=== PATIENT | female | born 1940 | race African-American/Black ===

== ENCOUNTER 2017-03-09 17:36 | Inpatient (IN) | payer MEDICARE, OTHER ==
[2017-03-09] MEDS ORDERED: NORMAL SALINE 1000 ML 1,000 ML IV ONE (18:27)
[2017-03-09] MEDS ORDERED: ACETAMINOPHEN 325 MG TABLET PO ONE (18:28)
[2017-03-09 18:48] LABS: ABSOLUTE BASOPHILS # (AUTO) 0.1 10^3/uL (0.0-0.2); ABSOLUTE LYMPHOCYTES (AUTO) 0.5 10^3/uL (0.5-4.7); ABSOLUTE MONOCYTES (AUTO) 0.7 10^3/uL (0.1-1.4); ABSOLUTE NEUT (AUTO) 8.4 10^3/uL (1.7-8.2); BASOPHILS % (AUTO) 0.9 % (0-2); EOSINOPHILS % (AUTO) 0.1 % (0-6); HEMATOCRIT 38.2 % (36.0-47.0); HEMOGLOBIN 12.5 g/dL (12.0-15.5); HGB HCT DIFFERENCE -0.7; LYMPHOCYTES % (AUTO) 5.5 % (13-45); MEAN CORPUSCULAR HEMOGLOBIN 27.5 pg (27.0-33.4); MEAN CORPUSCULAR HGB CONC 32.6 g/dL (32.0-36.0); MEAN CORPUSCULAR VOLUME 84 fl (80-97); MONOCYTES % (AUTO) 7.1 % (3-13); RED BLOOD COUNT 4.54 10^6/uL (3.72-5.28); RED CELL DISTRIBUTION WIDTH 14.3 % (11.5-14.0); SEGMENTED NEUTROPHILS % (AUTO) 86.4 % (42-78); WHITE BLOOD COUNT 9.8 10^3/uL (4.0-10.5)
--- NOTE | 2017-03-09 18:57 | ER Document Report ---
ED General - General Chief Complaint: Fall Stated Complaint: FALL HIGH BLOOD PRESSURE Notes: Patient is a 76-year-old female with a past medical history of hypertension, hyperlipidemia, recurrent falls, who presents after being found on the ground after laying there for approximately 12 hours. Patient states she fell at approximately 4 this morning onto her right scapula and mid back and had been unable to get the floor since that time. Her daughter found her at approximately 5 PM and contact EMS who brought her here to the hospital. At time prior to presentation patient only complains of a mild, dull, constant, burning pain to her right flank which she states she always has and is not new or different since the fall. Nothing seems to improve or worsen her pain. Patient states that she is certain she did not hit her head or neck. Patient does state that she has not taken any of her blood pressure medicines today. She also states that she does feel quite dehydrated and has not been able to drink or eat anything all day. Her daughter at bedside states this is very similar to her prior falls. TRAVEL OUTSIDE OF THE [place] IN LAST 30 DAYS: No - Related Data Allergies/Adverse Reactions: Penicillins Allergy (Verified 03/09/17 18:30) Past Medical History - General Information source: Patient - Social History Smoking Status: Never Smoker Frequency of alcohol use: None Drug Abuse: None Lives with: Family Family History: Reviewed & Not Pertinent Patient has suicidal ideation: No Patient has homicidal ideation: No - Past Medical History Cardiac Medical History: Reports: Hx Hypercholesterolemia, Hx Hypertension Endocrine Medical History: Reports: Hx Diabetes Mellitus Type 2 Renal/ Medical History: Denies: Hx Peritoneal Dialysis Past Surgical History: Reports: Hx Bowel Surgery - colon re-section, Hx Cardiac Catheterization - Immunizations Hx Diphtheria, Pertussis, Tetanus Vaccination: Yes Review of Systems - Review of Systems Notes: Constitutional: Negative for fever. Eyes: Negative for visual changes. ENT: Negative for facial injury Cardiovascular: Negative for chest injury. Respiratory: Negative for shortness of breath. Gastrointestinal: Negative for abdominal injury. Genitourinary: Negative for genital injury Musculoskeletal: Positive for back injury. Skin: Negative for laceration/abrasions. Neurological: Negative for head injury. Physical Exam - Vital signs Vitals: Resp Pulse Ox 19 99 03/09/17 17:57 03/09/17 17:57 Interpretation: Hypertensive Notes: PHYSICAL EXAMINATION: GENERAL: Frail, elderly, no acute distress HEAD: Atraumatic, normocephalic. EYES: Pupils equal round and reactive to light, extraocular movements intact, sclera anicteric, conjunctiva are normal. ENT: nares patent, no oral pharyngeal trauma. No hemotympanum, no Aguilar's sign , no raccoon eyes. NECK: No midline cervical spine tenderness. Patient able to move their head to 45 bilaterally without any discomfort. LUNGS: Breath sounds clear to auscultation bilaterally and equal. No wheezes rales or rhonchi. HEART: Regular tachycardia without murmurs. CHEST WALL: No ecchymosis over the chest wall. ABDOMEN: Soft, nontender, normoactive bowel sounds. No guarding, no rebound. No abdominal bruising EXTREMITIES: Normal range of motion, no pitting or edema. No long bone deformities. BACK: No midline spinal tenderness, step-offs, or deformities. NEUROLOGICAL: Face symmetric. Tongue protrudes midline. Extraocular motions intact. Pupils are 2 mm and equally reactive. Normal speech, normal gait. 5 out of 5 strength in both the distal and proximal upper and lower extremities bilaterally. Sensation is grossly intact throughout. Finger to nose testing normal. Pronator drift normal. PSYCH: Normal mood, normal affect. SKIN: Warm, Dry, poor turgor, no rashes or lesions noted. Course - Re-evaluation Re-evalutation: 03/09/17 18:55 Patient presents after having a mechanical fall without hitting her head or neck. Patient apparently has frequent falls. She denies any focal pain with the exception of mild discomfort to her left flank which she describes a stinging pain that she always has. Patient does appear clinically quite dehydrated, even attempt to sit up in the bed because her heart rate to jump from 105-135. She does appear to be orthostatic symptomatically as well. Patient has been lying on the ground for over 12 hours I am also concerned about the possibility of rhabdomyolysis. Will obtain labs to provide IV fluids , obtain a urinalysis, and reassess 03/10/17 04:33 Patient's urinalysis does show findings consistent with acute pyelonephritis. She remains with some tachycardia likely secondary to the urinary tract infection as well as dehydration. CK is unremarkable. Patient is also noted on examination to have a very firm right breast mass consistent with advanced breast cancer. Given history of recent weight loss and progressively worsening diffuse back pain patient may very well have metastatic breast cancer. She will be admitted to the hospitalist service. - Vital Signs Vital signs: Temp Pulse Resp BP Pulse Ox 98.1 F 106 H 18 151/80 H 95 03/10/17 04:20 03/10/17 04:20 03/10/17 04:20 03/10/17 04:20 03/10/17 04:20 - Laboratory Result Diagrams: 03/09/17 18:38 03/09/17 20:02 Laboratory results interpreted by me: 03/09/17 03/09/17 03/09/17 17:58 18:38 18:38 RDW 14.3 H Seg Neutrophils % 86.4 H Lymphocytes % 5.5 L Absolute Neutrophils 8.4 H Sodium Carbon Dioxide Anion Gap BUN Glucose Hemoglobin A1c % 7.6 H Calcium Direct Bilirubin AST ALT Alkaline Phosphatase Creatine Kinase Urine Protein 100 H Urine Glucose (UA) >=500 H Urine Ketones 80 H Urine Blood MODERATE H Urine Nitrite POSITIVE H Ur Leukocyte Esterase LARGE H 03/09/17 20:02 RDW Seg Neutrophils % Lymphocytes % Absolute Neutrophils Sodium 145.6 H Carbon Dioxide 19 L Anion Gap 23 H BUN 24 H Glucose 289 H Hemoglobin A1c % Calcium 13.5 H* Direct Bilirubin 0.6 H AST 71 H ALT 65 H Alkaline Phosphatase 233 H Creatine Kinase 188 H Urine Protein Urine Glucose (UA) Urine Ketones Urine Blood Urine Nitrite Ur Leukocyte Esterase Discharge - Discharge Clinical Impression: Dehydration, Hypercalcemia, Essential hypertension Urinary tract infection Qualifiers: Urinary tract infection type: site unspecified Hematuria presence: without hematuria Qualified Code(s): N39.0 - Urinary tract infection, site not specified Condition: Fair Disposition: ADMITTED INPATIENT Admitting Provider: Hospitalist - [place] [facility] Admitted: [facility]
[2017-03-09 19:57] LABS: APPEARANCE,URINE CLOUDY; BILIRUBIN,URINE NEGATIVE (NEGATIVE); GLUCOSE, URINE >=500 mg/dL (NEGATIVE); KETONES,URINE 80 mg/dL (NEGATIVE); LEUKOCYTE ESTERASE,URINE LARGE (NEGATIVE); NITRITE,URINE POSITIVE (NEGATIVE); PROTEIN,URINE 100 mg/dL (NEGATIVE); URINE SPECIFIC GRAVITY 1.014; UROBILINOGEN,URINE NEGATIVE mg/dL (<2.0)
[2017-03-09] MEDS ORDERED: CEFTRIAXONE 1 GM/D5W RTU 1 GM/50 ML RTUPB IV ONE (20:01)
[2017-03-09 20:42] LABS: ALANINE AMINOTRANSFERASE 65 U/L (9-52); ALKALINE PHOSPHATASE 233 U/L (38-126); ASPARTATE AMINO TRANSFERASE 71 U/L (14-36); BILIRUBIN,DIRECT 0.6 mg/dL (0.0-0.4); BILIRUBIN,TOTAL 0.9 mg/dL (0.2-1.3); BLOOD UREA NITROGEN 24 mg/dL (7-20); CREATINE KINASE 188 U/L (30-135); CREATININE RESULT 0.86 mg/dL (0.52-1.25); GLUCOSE 289 mg/dL (75-110)
[2017-03-09 20:54] LABS: CARBON DIOXIDE 19 mmol/L (22-30); CHLORIDE 104 mmol/L (98-107); SODIUM 145.6 mmol/L (137-145)
[2017-03-09 20:56] LABS: ANION GAP 23 (5-19)
[2017-03-09 20:58] LABS: CALCIUM 13.5 mg/dL (8.4-10.2)
[2017-03-09] MEDS ORDERED: OXYCODONE-ACETAMINOPHEN 5-325 MG TABLET PO PRN (21:51)
[2017-03-09] MEDS ORDERED: ONDANSETRON HCL INJ/PF 4 MG/2 ML SDV IV PRN (21:51)
[2017-03-09] MEDS ORDERED: MAG HYDROX/AL HYDROX/SIMETH SUSP 30 ML UDCUP PO PRN (21:51)
[2017-03-09] MEDS ORDERED: ACETAMINOPHEN 325 MG TABLET PO PRN (21:51)
[2017-03-09] MEDS: LISINOPRIL 10 MG TABLET PO SCH (22:35)
[2017-03-09] MEDS ORDERED: FUROSEMIDE INJ/PF 20 MG/2 ML SDV IV ONE (23:00)
[2017-03-09] MEDS ORDERED: NORMAL SALINE 1000 ML 3,000 ML IV ONE (23:00)
[2017-03-09] MEDS ORDERED: DEXTROSE 50%-WATER 25 GM/50 ML DISP.SYRIN IV PRN ×2 (23:29)
[2017-03-09] MEDS ORDERED: GLUCAGON,HUMAN RECOMB 1 MG INJ IM PRN (23:29)
[2017-03-09] MEDS ORDERED: DEXTROSE 40% GEL 15 GM TUBE PO PRN ×2 (23:29)
--- NOTE | 2017-03-09 23:45 | PDOC H&P ---
History of Present Illness Admission Date/PCP: 03/09/17 Dr. Knight History of Present Illness: JOSH VALERA is a 76 year old female with a past medical history of hypertension, hyperlipidemia, colon cancer, PE, who presents after being found on the ground after laying there for approximately 12 hours. Patient states she fell at approximately 4 this morning onto her right scapula and mid back and had been unable to get the floor since that time. Her daughter found her at approximately 5 PM and contact EMS who brought her here to the hospital. At time prior to presentation patient only complains of a mild, dull, constant, burning pain to her right flank for the past three days. Nothing seems to improve or worsen her pain. Patient states that she is certain she did not hit her head or neck. Denies loss of consciousness. Patient does state that she has not taken any of her blood pressure medicines today. She also states that she does feel quite dehydrated and has not been able to drink or eat anything all day. Patient reports intermittent left leg weakness and states her leg just went out from under her when she fell. Family noticed "bruising" of her left breast. She is referred to the hospitalist for uti, hypertensive urgency. Past Medical History Cardiac Medical History: Reports: Hyperlipidema, Hypertension, Pulmonary Embolism Endocrine Medical History: Reports: Diabetes Mellitus Type 2 Malignancy Medical History: Reports: Colorectal Cancer Past Surgical History Past Surgical History: Reports: Other - Port insertion and removal partial colectomy Social History Lives with: Family Smoking Status: Never Smoker Frequency of Alcohol Use: None Hx Recreational Drug Use: No Hx Prescription Drug Abuse: No - Advance Directive Resuscitation Status: Full Code Surrogate healthcare decision maker:: Daughter, Sonja Valera Family History Family History: CAD Parental Family History Reviewed: Yes Children Family History Reviewed: Yes Sibling(s) Family History Reviewed.: Yes Medication/Allergy Home Medications: Docusate Sodium [Colace 100 mg Capsule] 200 mg PO DAILY 02/26/12 Gemfibrozil [Lopid 600 Mg Tablet] 600 mg PO BID 02/26/12 Glipizide [Glocotrol 10 Mg Tablet] 10 mg PO BID 02/26/12 Lisinopril [Prinivil 40 mg Tablet] 40 mg PO DAILY 02/26/12 Metformin HCl [Glumetza] 1,000 mg PO BID 02/26/12 Metoprolol Tartrate [Lopressor 50 mg Tablet] 50 mg PO Q12H 02/26/12 Warfarin Sodium 5 mg PO DAILY 02/26/12 Ciprofloxacin HCl [Cipro 500 mg Tablet] 500 mg PO BID #10 tablet 06/06/14 Allergies/Adverse Reactions: Penicillins Allergy (Verified 03/09/17 18:30) Review of Systems Constitutional: PRESENT: weakness. ABSENT: chills, fever(s), headache(s), weight gain, weight loss Eyes: ABSENT: visual disturbances Ears: ABSENT: hearing changes Cardiovascular: ABSENT: chest pain, dyspnea on exertion, edema, orthropnea, palpitations Respiratory: ABSENT: cough, hemoptysis Gastrointestinal: PRESENT: constipation. ABSENT: abdominal pain, diarrhea, hematemesis, hematochezia, melena, nausea, vomiting Genitourinary: ABSENT: dysuria, hematuria Musculoskeletal: PRESENT: back pain. ABSENT: joint swelling Integumentary: PRESENT: rash - Right breast. ABSENT: wounds Neurological: PRESENT: frequent falls, weakness. ABSENT: abnormal gait, abnormal speech, confusion, dizziness, focal weakness, syncope Psychiatric: ABSENT: anxiety, depression, homidical ideation, suicidal ideation Endocrine: ABSENT: cold intolerance, heat intolerance, polydipsia, polyuria Hematologic/Lymphatic: ABSENT: easy bleeding, easy bruising Physical Exam Vital Signs: Temp Pulse Resp BP Pulse Ox 97.3 F 104 H 22 H 204/95 H 93 03/09/17 18:21 03/09/17 18:21 03/09/17 21:00 03/09/17 18:21 03/09/17 21:00 Intake & Output 03/08/17 03/09/17 03/10/17 06:59 06:59 06:59 Weight 75.296 kg General appearance: PRESENT: well-developed, other - Chronically ill-appearing. ABSENT: well-nourished Head exam: PRESENT: atraumatic, normocephalic Eye exam: PRESENT: conjunctival injection - Right eye with matting, conjunctiva pink, EOMI, PERRLA. ABSENT: scleral icterus Ear exam: PRESENT: normal external ear exam Mouth exam: PRESENT: dry mucosa, tongue midline Neck exam: PRESENT: lymphadenopathy - Shotty anterior cervical. ABSENT: JVD, thyromegaly, tracheal deviation Respiratory exam: PRESENT: clear to auscultation zane, symmetrical, unlabored. ABSENT: accessory muscle use, prolonged expiratory phas, rales, retraction, rhonchi, tachypnea, wheezes Cardiovascular exam: PRESENT: RRR, +S1, +S2. ABSENT: diastolic murmur, rubs, systolic murmur Pulses: PRESENT: normal dorsalis pedis pul Vascular exam: PRESENT: normal capillary refill GI/Abdominal exam: PRESENT: hypoactive bowel sounds, soft. ABSENT: distended, guarding, mass, Madrigal's sign, organolmegaly, rebound, rigid, tenderness Rectal exam: PRESENT: deferred Extremities exam: PRESENT: full ROM. ABSENT: calf tenderness, clubbing, pedal edema Neurological exam: PRESENT: alert, awake, oriented to person, oriented to place , oriented to time, oriented to situation, CN II-XII grossly intact. ABSENT: motor sensory deficit Psychiatric exam: PRESENT: appropriate affect, normal mood. ABSENT: homicidal ideation, suicidal ideation Skin exam: PRESENT: dry, warm. ABSENT: cyanosis, intact - Area of erythema with 2 small circumferential areas of comedone, right breast hardness and peau d orange appearance of skin, rash Results Laboratory Results: 03/09/17 18:38 03/09/17 20:02 03/09/17 03/09/17 03/09/17 17:58 18:38 18:38 WBC 9.8 RBC 4.54 Hgb 12.5 Hct 38.2 MCV 84 MCH 27.5 MCHC 32.6 RDW 14.3 H Plt Count 371 Seg Neutrophils % 86.4 H Lymphocytes % 5.5 L Monocytes % 7.1 Eosinophils % 0.1 Basophils % 0.9 Absolute Neutrophils 8.4 H Absolute Lymphocytes 0.5 Absolute Monocytes 0.7 Absolute Eosinophils 0.0 Absolute Basophils 0.1 Sodium Cancelled Potassium Cancelled Chloride Cancelled Carbon Dioxide Cancelled Anion Gap Cancelled BUN Cancelled Creatinine Cancelled Est GFR ( Amer) Cancelled Est GFR (Non-Af Amer) Cancelled Glucose Cancelled Calcium Cancelled Total Bilirubin Cancelled AST Cancelled ALT Cancelled Alkaline Phosphatase Cancelled Total Protein Cancelled Albumin Cancelled Urine Color YELLOW Urine Appearance CLOUDY Urine pH 6.0 Ur Specific [place] 1.014 Urine Protein 100 H Urine Glucose (UA) >=500 H Urine Ketones 80 H Urine Blood MODERATE H Urine Nitrite POSITIVE H Ur Leukocyte Esterase LARGE H Urine WBC (Auto) 94 Urine RBC (Auto) 33 03/09/17 20:02 WBC RBC Hgb Hct MCV MCH MCHC RDW Plt Count Seg Neutrophils % Lymphocytes % Monocytes % Eosinophils % Basophils % Absolute Neutrophils Absolute Lymphocytes Absolute Monocytes Absolute Eosinophils Absolute Basophils Sodium 145.6 H Potassium 4.0 Chloride 104 Carbon Dioxide 19 L Anion Gap 23 H BUN 24 H Creatinine 0.86 Est GFR ( Amer) > 60 Est GFR (Non-Af Amer) > 60 Glucose 289 H Calcium 13.5 H* Total Bilirubin 0.9 AST 71 H ALT 65 H Alkaline Phosphatase 233 H Total Protein 7.0 Albumin 4.0 Urine Color Urine Appearance Urine pH Ur Specific [place] Urine Protein Urine Glucose (UA) Urine Ketones Urine Blood Urine Nitrite Ur Leukocyte Esterase Urine WBC (Auto) Urine RBC (Auto) 03/09/17 03/09/17 18:38 20:02 Creatine Kinase Cancelled 188 H Status: Imported from PACS Assessment & Plan - Diagnosis (1) Urinary tract infection Qualifiers: Urinary tract infection type: site unspecified Hematuria presence: without hematuria Qualified Code(s): N39.0 - Urinary tract infection, site not specified Is this a current diagnosis for this admission?: Yes Plan: Initiate patient on Rocephin. Likely the cause of her fall/weakness. Urine culture and blood cultures pending. (2) Hypercalcemia Is this a current diagnosis for this admission?: Yes Plan: Concern that this is due to underlying metastatic malignant process. Obtain PTH , intact PTH, vitamin D studies. Give patient 3 L normal saline bolus and Lasix. (3) Metabolic acidosis Is this a current diagnosis for this admission?: Yes Plan: Likely secondary to underlying starvation ketosis and dehydration. Will repeat BMP (4) Diabetes mellitus type 2 in nonobese Is this a current diagnosis for this admission?: Yes Plan: Initiate patient on sliding scale insulin and consider liberalizing diet (5) Elevated LFTs Is this a current diagnosis for this admission?: Yes Plan: Possibly secondary to underlying dehydration, but concerns for malignant process. (6) Dehydration Is this a current diagnosis for this admission?: Yes Plan: Place patient on normal saline (7) Essential hypertension Is this a current diagnosis for this admission?: Yes Plan: This patient on lisinopril and metoprolol. (8) Generalized debility Is this a current diagnosis for this admission?: Yes Plan: At this time, I feel the patient is definitely not safe for home alone. Will place a physical therapy consult and have recommended to patient and family rehabilitation. 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 Patient's breast is firm, with peau d'orange appearance. Have consulted her hematology oncologist. Will consider inpatient versus outpatient workup. - Time Time Spent: 50 to 70 Minutes Medications reviewed and adjusted accordingly: Yes Anticipated discharge: Acute Rehab - Inpatient Certification Based on my medical assessment, after consideration of the patient's comorbidities, presenting symptoms, or acuity I expect that the services needed warrant INPATIENT care.: Yes I certify that my determination is in accordance with my understanding of Medicare's requirements for reasonable and necessary INPATIENT services [42 CFR 412.3e].: Yes Medical Necessity: Need For IV Fluids, Need For Continuous Telemetry Monitoring , Need for Surgery Post Hospital Care: D/C Crm System Administrator Documentation
[2017-03-10] MEDS: NORMAL SALINE 1000 ML 1,000 ML IV PRN ×4 (00:30→21:23)
[2017-03-10] MEDS: INSULIN LISPRO 100 UNIT/ML 3 ML VIAL SUBCUT PRN (01:42)
[2017-03-10 05:14] LABS: ABSOLUTE LYMPHOCYTES (AUTO) 0.8 10^3/uL (0.5-4.7); ABSOLUTE MONOCYTES (AUTO) 0.7 10^3/uL (0.1-1.4); ABSOLUTE NEUT (AUTO) 6.5 10^3/uL (1.7-8.2); BASOPHILS % (AUTO) 0.3 % (0-2); EOSINOPHILS % (AUTO) 0.1 % (0-6); HEMATOCRIT 33.6 % (36.0-47.0); HEMOGLOBIN 11.2 g/dL (12.0-15.5); LYMPHOCYTES % (AUTO) 9.6 % (13-45); MEAN CORPUSCULAR HEMOGLOBIN 27.4 pg (27.0-33.4); MEAN CORPUSCULAR HGB CONC 33.3 g/dL (32.0-36.0); MEAN CORPUSCULAR VOLUME 82 fl (80-97); MONOCYTES % (AUTO) 8.3 % (3-13); RED BLOOD COUNT 4.09 10^6/uL (3.72-5.28); RED CELL DISTRIBUTION WIDTH 14.1 % (11.5-14.0); SEGMENTED NEUTROPHILS % (AUTO) 81.7 % (42-78)
[2017-03-10 05:38] LABS: ANION GAP 15 (5-19); BLOOD UREA NITROGEN 21 mg/dL (7-20); CARBON DIOXIDE 21 mmol/L (22-30); CHLORIDE 107 mmol/L (98-107); CREATININE RESULT 0.75 mg/dL (0.52-1.25); GLUCOSE 239 mg/dL (75-110); POTASSIUM 3.3 mmol/L (3.6-5.0); SODIUM 143.3 mmol/L (137-145)
[2017-03-10 05:52] LABS: CALCIUM 12.7 mg/dL (8.4-10.2)
[2017-03-10] MEDS: OXYCODONE-ACETAMINOPHEN 5-325 MG TABLET PO PRN ×3 (08:40→19:19)
[2017-03-10] MEDS: CEFTRIAXONE 1 GM/D5W RTU 1 GM/50 ML RTUPB IV SCH (11:00)
[2017-03-10] MEDS: POLYETHYLENE GLYCOL 3350 POWDER 17 GM/1 PACKET PO SCH (11:02)
[2017-03-10] MEDS: LISINOPRIL 10 MG TABLET PO SCH ×2 (11:03→21:07)
[2017-03-10] MEDS: DOCUSATE SODIUM 100 MG CAPSULE PO SCH ×2 (11:03→19:18)
[2017-03-10] MEDS: METOPROLOL SUCCINATE 25 MG TAB.SR.24H PO SCH ×2 (11:03→21:06)
[2017-03-10] MEDS: ERYTHROMYCIN 0.5% OPH OINTMENT 3.5 GM TUBE OD SCH ×2 (11:04→19:22)
[2017-03-10] MEDS: NYSTATIN CREAM 15 GM TP SCH ×2 (11:05→19:21)
[2017-03-10] MEDS ORDERED: POTASSIUM CHLORIDE 10 MEQ TABLET.SA PO ONE ×2 (13:00→23:45)
--- NOTE | 2017-03-10 14:20 | PDOC PROGRESS REPORT ---
Subjective Progress Note for:: 03/10/17 Subjective:: Day 1 of hospitalization. Follow-up visit for patient admitted with failure to thrive and falls Patient is a 76-year-old female past medical history of hypertension dyslipidemia, colon cancer, PE, who was brought to the hospital after being found on the ground after laying there for about 12 hours. Patient stated that she fell in the morning onto her right shoulder and back and was unable to get up until evening when she was found by daughter who then contacted EMS. She did complain of mild dull constant burning pain to her right flank. She was noted to be very unkempt and dirty, was found to have a urinary tract infection as well as hypercalcemia. Her right breast had a 'peau d'orange' appearance. She received IV fluid boluses and has been started on IV antibiotics. Oncology was consulted on admission Overnight events noted. She does admit to feeling generally weak, and did not finish her breakfast this morning. She still complains of right upper chest wall pain. She denies any shortness of breath, nausea vomiting diarrhea, any focal neurologic deficit. She has been afebrile Physical Exam Vital Signs: Temp Pulse Resp BP Pulse Ox 98.1 F 103 H 18 151/80 H 95 03/10/17 04:20 03/10/17 07:00 03/10/17 04:20 03/10/17 04:20 03/10/17 04:20 General appearance: PRESENT: no acute distress, cooperative, disheveled, hard of hearing Head exam: PRESENT: atraumatic, normocephalic Eye exam: PRESENT: conjunctiva pink, EOMI Teeth exam: PRESENT: edentulous Respiratory exam: PRESENT: clear to auscultation zane, symmetrical, unlabored Cardiovascular exam: PRESENT: RRR, +S1, +S2 GI/Abdominal exam: PRESENT: normal bowel sounds, soft. ABSENT: ascites, diminished bowel sounds, distended, firm, guarding, hernia, hyperactive bowel sounds, hypoactive bowel sounds, mass, Madrigal's sign, organolmegaly, rebound, rigid, tenderness, other Extremities exam: PRESENT: other - Has bilateral ingrowing toenails Neurological exam: PRESENT: awake, oriented to person, oriented to place, oriented to time, oriented to situation, reflexes normal Psychiatric exam: PRESENT: depressed Skin exam: PRESENT: other - Right breast with peau d'orange appearance Results Laboratory Results: 03/10/17 04:19 03/10/17 04:19 03/10/17 03/10/17 04:19 04:19 WBC 8.0 RBC 4.09 Hgb 11.2 L Hct 33.6 L MCV 82 MCH 27.4 MCHC 33.3 RDW 14.1 H Plt Count 316 Seg Neutrophils % 81.7 H Lymphocytes % 9.6 L Monocytes % 8.3 Eosinophils % 0.1 Basophils % 0.3 Absolute Neutrophils 6.5 Absolute Lymphocytes 0.8 Absolute Monocytes 0.7 Absolute Eosinophils 0.0 Absolute Basophils 0.0 Sodium 143.3 Potassium 3.3 L Chloride 107 Carbon Dioxide 21 L Anion Gap 15 BUN 21 H Creatinine 0.75 Est GFR ( Amer) > 60 Est GFR (Non-Af Amer) > 60 Glucose 239 H Calcium 12.7 H* Assessment & Plan - Diagnosis (1) Adult failure to thrive syndrome Plan: Patient lives alone at home, with her daughter that checks on her frequently. She was found lying on the floor for more than 12 hours after a fall at home. Podiatry consulted for ingrown toenails. Patient will probably need SNF placement. PT/OT/criminal justice social worker consulted (2) Urinary tract infection Qualifiers: Urinary tract infection type: acute cystitis Hematuria presence: without hematuria Qualified Code(s): N30.00 - Acute cystitis without hematuria Is this a current diagnosis for this admission?: Yes Plan: Afebrile with no leukocytosis. Continue current antibiotics (3) Inflammatory breast cancer Qualifiers: Laterality: right Qualified Code(s): C50.911 - Malignant neoplasm of unspecified site of right female breast Is this a current diagnosis for this admission?: Yes Plan: We will await input from oncology. Continue current pain management (4) Hypercalcemia Is this a current diagnosis for this admission?: Yes Plan: Most likely related to malignancy given the peau d'orange appearance of the right breast. Calcium 12.7 (13.5). Continue IV fluids. Oncology to see (5) Dehydration Is this a current diagnosis for this admission?: Yes Plan: Continue IV fluids as ordered (6) Elevated LFTs Is this a current diagnosis for this admission?: Yes Plan: AST/ALT: 71/65, alkaline phosphatase 233. Will obtain RUQ US. Follow labs (7) Essential hypertension Is this a current diagnosis for this admission?: Yes Plan: Blood pressure stable. Continue current management (8) Hypokalemia Is this a current diagnosis for this admission?: Yes Plan: Potassium 3.3. replete and recheck (9) DVT prophylaxis Is this a current diagnosis for this admission?: Yes Plan: Patient is on rivaroxaban - Time Time Spent with patient: 35 or more minutes Medications reviewed and adjusted accordingly: Yes Anticipated discharge: SNF Within: within 48 hours - Inpatient Certification Medical Necessity: Risk of Complication if Not Cared For in Hospital - Patient will require SNF placement
[2017-03-10] MEDS ORDERED: INFLUENZA ADLT QUAD (36MOS+) 2017-18 VAC 0.5 ML SYR IM PRN (16:31)
[2017-03-10] MEDS: RIVAROXABAN 10 MG TABLET PO SCH (19:20)
--- NOTE | 2017-03-10 22:34 | RADIOLOGY REPORT (SQ) ---
EXAM DESCRIPTION: U/S ABDOMEN LIMITED W/O DOP COMPLETED DATE/TIME: 03/10/2017 10:03 pm REASON FOR STUDY: Abnromal LFTs COMPARISON: None. TECHNIQUE: Dynamic and static grayscale images acquired of the right upper quadrant and recorded on PACS. Additional selected color Doppler and spectral images recorded. LIMITATIONS: Study limited due to acoustical interference from fat or from air in the bowel. FINDINGS: PANCREAS: Parts or all of the pancreas poorly seen secondary to acoustical interference fr om fat or from air in the bowel. LIVER: Echotexture is coarse with increased echogenicity consistent with fatty infiltration. No mass es. LIVER VASCULATURE: Normal directional flow of the main portal vein and hepatic veins. GALLBLADDER: Sludge/small stones No stones. Normal wall thickness. No pericholecystic fluid. ULTRASOUND-DETECTED DUMONT'S SIGN: Negative. INTRAHEPATIC DUCTS AND COMMON DUCT: CBD and intrahepatic ducts normal caliber. No filling defects. INFERIOR VENA CAVA: Normal flow. AORTA: No aneurysm. RIGHT KIDNEY: Normal size. Normal echogenicity. No solid or suspicious masses. No hydronephrosis. No calcifications. PERITONEAL CAVITY AND RIGHT PLEURAL SPACE: No ascites or effusions. OTHER: No other significant finding. IMPRESSION: FATTY LIVER. CHOLELITHIASIS. PANCREAS PARTIALLY OR COMPLETELY OBSCURED. OTHERWISE NORM AL RIGHT UPPER QUADRANT ULTRASOUND. TECHNICAL DOCUMENTATION: JOB ID: [id number] [employer]- All Rights Reserved
[2017-03-10] MEDS ORDERED: METOPROLOL SUCCINATE 25 MG TAB.SR.24H PO SCH (23:03)
[2017-03-10] MEDS ORDERED: CALCITONIN,SALMON,SYNTHETIC 400 UNIT/2 ML VIAL IM PRN (23:45)
[2017-03-10] MEDS ORDERED: METOPROLOL SUCCINATE 50 MG TAB.SR.24H PO ONE (23:45)
[2017-03-10] MEDS ORDERED: LISINOPRIL 10 MG TABLET PO ONE (23:45)
[2017-03-11] MEDS ORDERED: CALCITONIN,SALMON,SYNTHETIC 400 UNIT/2 ML VIAL ONE (01:11)
[2017-03-11] MEDS: NORMAL SALINE 1000 ML 1,000 ML IV PRN ×2 (04:38→23:53)
[2017-03-11 05:11] LABS: ABSOLUTE LYMPHOCYTES (AUTO) 0.8 10^3/uL (0.5-4.7); ABSOLUTE MONOCYTES (AUTO) 0.8 10^3/uL (0.1-1.4); ABSOLUTE NEUT (AUTO) 6.3 10^3/uL (1.7-8.2); BASOPHILS % (AUTO) 0.5 % (0-2); EOSINOPHILS % (AUTO) 0.6 % (0-6); HEMATOCRIT 32.3 % (36.0-47.0); HEMOGLOBIN 10.7 g/dL (12.0-15.5); HGB HCT DIFFERENCE -0.2; LYMPHOCYTES % (AUTO) 9.9 % (13-45); MEAN CORPUSCULAR HEMOGLOBIN 27.2 pg (27.0-33.4); MEAN CORPUSCULAR HGB CONC 33.1 g/dL (32.0-36.0); MEAN CORPUSCULAR VOLUME 82 fl (80-97); MONOCYTES % (AUTO) 9.6 % (3-13); RED BLOOD COUNT 3.94 10^6/uL (3.72-5.28); SEGMENTED NEUTROPHILS % (AUTO) 79.4 % (42-78)
[2017-03-11 05:51] LABS: ALANINE AMINOTRANSFERASE 84 U/L (9-52); ALBUMIN 3.1 g/dL (3.5-5.0); ALKALINE PHOSPHATASE 206 U/L (38-126); ANION GAP 15 (5-19); ASPARTATE AMINO TRANSFERASE 103 U/L (14-36); BILIRUBIN,DIRECT 0.4 mg/dL (0.0-0.4); BILIRUBIN,TOTAL 0.6 mg/dL (0.2-1.3); BLOOD UREA NITROGEN 14 mg/dL (7-20); CALCIUM 11.3 mg/dL (8.4-10.2); CARBON DIOXIDE 18 mmol/L (22-30); CHLORIDE 111 mmol/L (98-107); CREATININE RESULT 0.69 mg/dL (0.52-1.25); GLUCOSE 259 mg/dL (75-110); POTASSIUM 3.5 mmol/L (3.6-5.0); SODIUM 144.1 mmol/L (137-145); TOTAL PROTEIN 5.6 g/dL (6.3-8.2)
[2017-03-11] MEDS ORDERED: POTASSIUM CHLORIDE 10 MEQ TABLET.SA PO ONE (06:59)
[2017-03-11] MEDS: OXYCODONE-ACETAMINOPHEN 5-325 MG TABLET PO PRN ×3 (08:24→17:47)
--- NOTE | 2017-03-11 09:56 | PDOC PROGRESS REPORT ---
Subjective Progress Note for:: 03/11/17 Subjective:: Day 1 of hospitalization. Follow-up visit for patient admitted with failure to thrive and falls Patient is a 76-year-old female past medical history of hypertension dyslipidemia, colon cancer, PE, who was brought to the hospital after being found on the ground after laying there for about 12 hours. Patient stated that she fell in the morning onto her right shoulder and back and was unable to get up until evening when she was found by daughter who then contacted EMS. She did complain of mild dull constant burning pain to her right flank. She was noted to be very unkempt and dirty, was found to have a urinary tract infection as well as hypercalcemia. Her right breast had a 'peau d'orange' appearance. She received IV fluid boluses and has been started on IV antibiotics. She has remained afebrile since admission. Oncology consult still pending Overnight events noted. She states she is feeling better but still admit to feeling generally weak. She still complains of right upper chest wall pain. She denies any shortness of breath, nausea vomiting diarrhea, any focal neurologic deficit. She has been afebrile. Daughter and son in law are present in the room Physical Exam Vital Signs: Temp Pulse Resp BP Pulse Ox 98.6 F 72 16 160/96 H 92 03/11/17 04:00 03/11/17 04:00 03/11/17 04:00 03/11/17 04:00 03/11/17 00:05 Intake & Output 03/10/17 03/11/17 03/12/17 06:59 06:59 06:59 Intake Total 4598 Balance 4598 Weight 76.5 kg General appearance: PRESENT: no acute distress, cooperative, disheveled, thin Head exam: PRESENT: atraumatic, normocephalic Throat exam: PRESENT: tonsillar erythema Respiratory exam: PRESENT: clear to auscultation zane, symmetrical, unlabored Cardiovascular exam: PRESENT: RRR, +S1, +S2 GI/Abdominal exam: PRESENT: normal bowel sounds, soft. ABSENT: ascites, diminished bowel sounds, distended, firm, guarding, hernia, hyperactive bowel sounds, hypoactive bowel sounds, mass, Madrigal's sign, organolmegaly, rebound, rigid, tenderness Neurological exam: PRESENT: awake, oriented to person, oriented to place, oriented to time, oriented to situation, reflexes normal, CN II-XII grossly intact Skin exam: PRESENT: other - Right breast with peau d'orange appearance Results Laboratory Results: 03/11/17 04:18 03/11/17 04:18 03/11/17 03/11/17 04:18 04:18 WBC 8.0 RBC 3.94 Hgb 10.7 L Hct 32.3 L MCV 82 MCH 27.2 MCHC 33.1 RDW 14.0 Plt Count 258 Seg Neutrophils % 79.4 H Lymphocytes % 9.9 L Monocytes % 9.6 Eosinophils % 0.6 Basophils % 0.5 Absolute Neutrophils 6.3 Absolute Lymphocytes 0.8 Absolute Monocytes 0.8 Absolute Eosinophils 0.0 Absolute Basophils 0.0 Sodium 144.1 Potassium 3.5 L Chloride 111 H Carbon Dioxide 18 L Anion Gap 15 BUN 14 Creatinine 0.69 Est GFR ( Amer) > 60 Est GFR (Non-Af Amer) > 60 Glucose 259 H Calcium 11.3 H Total Bilirubin 0.6 AST 103 H ALT 84 H Alkaline Phosphatase 206 H Total Protein 5.6 L Albumin 3.1 L 03/10/17 03/11/17 04:19 04:18 Creatine Kinase 121 CK-MB (CK-2) 0.90 Impressions: Abdomen Ultrasound 03/10/17 00:00 IMPRESSION: FATTY LIVER. CHOLELITHIASIS. PANCREAS PARTIALLY OR COMPLETELY OBSCURED. OTHERWISE NORMAL RIGHT UPPER QUADRANT ULTRASOUND. Status: Image reviewed by me Assessment & Plan - Diagnosis (1) Adult failure to thrive syndrome Plan: Patient lives alone at home, with her daughter that checks on her frequently. She was found lying on the floor for more than 12 hours after a fall at home. Podiatry consulted for ingrown toenails. Patient will probably need SNF placement (daughter states she might take patient to live with her in [place]). PT/ OT/director of social media marketing consulted (2) Urinary tract infection Qualifiers: Urinary tract infection type: acute cystitis Hematuria presence: without hematuria Qualified Code(s): N30.00 - Acute cystitis without hematuria Is this a current diagnosis for this admission?: Yes Plan: Acute cystitis due to GNRs. Afebrile with no leukocytosis. blood cultures NGTD. 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 We will await input from oncology. Continue current pain management (4) Hypercalcemia Is this a current diagnosis for this admission?: Yes Plan: Most likely related to malignancy given the peau d'orange appearance of the right breast. Improving, Calcium 11.3 (13.5). Continue IV fluids. Oncology to see (5) Elevated LFTs Is this a current diagnosis for this admission?: Yes Plan: AST/ALT 103/84 [71/65], alkaline phosphatase 206 [233]. Right upper quadrant ultrasound with evidence of fatty liver, Colelithiasis, pancreas was partially or completely obscured.. Follow labs (6) History of DVT (deep vein thrombosis) Is this a current diagnosis for this admission?: Yes Plan: History of DVT/PE s/p prior IVC filter placement. Continue home Rivaroxaban. (7) Dehydration Is this a current diagnosis for this admission?: Yes Plan: Continue IV fluids as ordered (8) Essential hypertension Is this a current diagnosis for this admission?: Yes Plan: Blood pressure stable. Continue current management: Lisinopril, Metoprolol (9) Hypokalemia Is this a current diagnosis for this admission?: Yes Plan: Potassium 3.3. replete and recheck (10) DVT prophylaxis Is this a current diagnosis for this admission?: Yes Plan: Patient is on rivaroxaban - Time Time Spent with patient: 35 or more minutes Medications reviewed and adjusted accordingly: Yes Anticipated discharge: SNF Within: within 72 hours - Inpatient Certification Medical Necessity: Risk of Complication if Not Cared For in Hospital, Risk of Diagnosis Which Will Require Inpatient Eval/Care/Monitoring
[2017-03-11] MEDS: NYSTATIN CREAM 15 GM TP SCH ×2 (10:27→17:51)
[2017-03-11] MEDS: ERYTHROMYCIN 0.5% OPH OINTMENT 3.5 GM TUBE OD SCH ×2 (10:28→17:51)
[2017-03-11] MEDS: CEFTRIAXONE 1 GM/D5W RTU 1 GM/50 ML RTUPB IV SCH (10:33)
[2017-03-11] MEDS: DOCUSATE SODIUM 100 MG CAPSULE PO SCH ×2 (10:33→17:46)
[2017-03-11] MEDS: LISINOPRIL 10 MG TABLET PO SCH ×2 (10:33→22:21)
[2017-03-11] MEDS: METOPROLOL SUCCINATE 50 MG TAB.SR.24H PO SCH ×2 (10:34→22:22)
[2017-03-11] MEDS: POLYETHYLENE GLYCOL 3350 POWDER 17 GM/1 PACKET PO SCH (10:35)
[2017-03-11 14:23] LABS: VITAMIN D 25-HYDROXY 48.9 ng/mL (30.0-100.0)
[2017-03-11] MEDS ORDERED: INSULIN GLARGINE,HUM.REC.ANLOG 1,000 UNIT/10 ML UNIT SUBCUT ONE (16:55)
[2017-03-11] MEDS: RIVAROXABAN 10 MG TABLET PO SCH (17:44)
[2017-03-11] MEDS: INSULIN LISPRO 100 UNIT/ML 3 ML VIAL SUBCUT PRN (22:24)
[2017-03-11] MEDS: HYDRALAZINE HCL INJ/PF 20 MG/1 ML SDV IV PRN (23:51)
[2017-03-12] MEDS ORDERED: CHLORTHALIDONE 25 MG TABLET PO ONE (04:30)
[2017-03-12 05:04] LABS: ABSOLUTE LYMPHOCYTES (AUTO) 0.8 10^3/uL (0.5-4.7); ABSOLUTE MONOCYTES (AUTO) 0.8 10^3/uL (0.1-1.4); ABSOLUTE NEUT (AUTO) 7.6 10^3/uL (1.7-8.2); BASOPHILS % (AUTO) 0.4 % (0-2); EOSINOPHILS % (AUTO) 0.3 % (0-6); HEMATOCRIT 30.8 % (36.0-47.0); HEMOGLOBIN 10.3 g/dL (12.0-15.5); HGB HCT DIFFERENCE 0.1; LYMPHOCYTES % (AUTO) 8.8 % (13-45); MEAN CORPUSCULAR HEMOGLOBIN 27.4 pg (27.0-33.4); MEAN CORPUSCULAR HGB CONC 33.5 g/dL (32.0-36.0); MEAN CORPUSCULAR VOLUME 82 fl (80-97); MONOCYTES % (AUTO) 8.3 % (3-13); RED BLOOD COUNT 3.77 10^6/uL (3.72-5.28); RED CELL DISTRIBUTION WIDTH 14.1 % (11.5-14.0); SEGMENTED NEUTROPHILS % (AUTO) 82.2 % (42-78); WHITE BLOOD COUNT 9.2 10^3/uL (4.0-10.5)
[2017-03-12 05:24] LABS: ANION GAP 15 (5-19); BLOOD UREA NITROGEN 11 mg/dL (7-20); CALCIUM 10.4 mg/dL (8.4-10.2); CARBON DIOXIDE 19 mmol/L (22-30); CHLORIDE 111 mmol/L (98-107); GLUCOSE 215 mg/dL (75-110); POTASSIUM 3.5 mmol/L (3.6-5.0); SODIUM 144.7 mmol/L (137-145)
[2017-03-12] MEDS: INSULIN LISPRO 100 UNIT/ML 3 ML VIAL SUBCUT PRN ×4 (07:40→21:56)
[2017-03-12] MEDS: DOCUSATE SODIUM 100 MG CAPSULE PO SCH ×2 (09:19→17:20)
[2017-03-12] MEDS: CEFTRIAXONE 1 GM/D5W RTU 1 GM/50 ML RTUPB IV SCH (09:19)
[2017-03-12] MEDS: METOPROLOL SUCCINATE 50 MG TAB.SR.24H PO SCH ×2 (09:19→21:49)
[2017-03-12] MEDS: LISINOPRIL 10 MG TABLET PO SCH (09:19)
[2017-03-12] MEDS: ERYTHROMYCIN 0.5% OPH OINTMENT 3.5 GM TUBE OD SCH ×2 (09:27→17:14)
[2017-03-12] MEDS: POLYETHYLENE GLYCOL 3350 POWDER 17 GM/1 PACKET PO SCH (09:32)
[2017-03-12] MEDS: CHLORTHALIDONE 25 MG TABLET PO SCH (09:36)
[2017-03-12] MEDS ORDERED: POTASSIUM CHLORIDE 10 MEQ TABLET.SA PO ONE (10:04)
[2017-03-12] MEDS ORDERED: LISINOPRIL 10 MG TABLET PO ONE (10:30)
--- NOTE | 2017-03-12 11:18 | PDOC PROGRESS REPORT ---
Subjective Progress Note for:: 03/12/17 Subjective:: Day 3 of hospitalization. Follow-up visit for patient admitted with failure to thrive and falls, and found to have an inflammatory right breast mass with hypercalcemia Patient is a 76-year-old female past medical history of hypertension dyslipidemia, colon cancer, PE, who was brought to the hospital after being found on the ground after laying there for about 12 hours. Patient stated that she fell in the morning onto her right shoulder and back and was unable to get up until evening when she was found by daughter who then contacted EMS. She did complain of mild dull constant burning pain to her right flank. She was noted to be very unkempt and dirty, was found to have a urinary tract infection as well as hypercalcemia. Her right breast had a 'peau d'orange' appearance. She received IV fluid boluses and has been started on IV antibiotics. She has remained afebrile since admission. Oncology consult still pending Overnight events noted. She was seen by the card writer hand yesterday and had a pedicure. She reports feeling better this morning. She denies any shortness of breath, nausea vomiting diarrhea, any focal neurologic deficit. She has been afebrile. Physical Exam Vital Signs: Temp Pulse Resp BP Pulse Ox 98.1 F 78 20 168/64 H 93 03/12/17 08:00 03/12/17 08:00 03/12/17 08:00 03/12/17 08:00 03/12/17 08:00 Intake & Output 03/11/17 03/12/17 03/13/17 06:59 06:59 06:59 Intake Total 4598 5068 Balance 4598 5068 Weight 76.5 kg 76.7 kg General appearance: PRESENT: no acute distress, cooperative, well-developed Head exam: PRESENT: atraumatic, normocephalic Respiratory exam: PRESENT: rhonchi, symmetrical, unlabored. ABSENT: accessory muscle use, chest wall tenderness, clear to auscultation zane, crackles, decreased breath sounds, prolonged expiratory phas, rales, retraction, stridor, tachypnea, wheezes, other Cardiovascular exam: PRESENT: RRR, +S1, +S2 GI/Abdominal exam: PRESENT: normal bowel sounds, soft. ABSENT: ascites, diminished bowel sounds, distended, firm, guarding, hernia, hyperactive bowel sounds, hypoactive bowel sounds, mass, Madrigal's sign, organolmegaly, rebound, rigid, tenderness, other Neurological exam: PRESENT: awake, oriented to person, oriented to place, oriented to time, oriented to situation, reflexes normal, CN II-XII grossly intact Psychiatric exam: PRESENT: normal mood Additional comments: Right breast with peau d'orange appearance: Indurated mildly tender Results Laboratory Results: 03/12/17 04:27 03/12/17 04:27 03/12/17 03/12/17 04:27 04:27 WBC 9.2 RBC 3.77 Hgb 10.3 L Hct 30.8 L MCV 82 MCH 27.4 MCHC 33.5 RDW 14.1 H Plt Count 259 Seg Neutrophils % 82.2 H Lymphocytes % 8.8 L Monocytes % 8.3 Eosinophils % 0.3 Basophils % 0.4 Absolute Neutrophils 7.6 Absolute Lymphocytes 0.8 Absolute Monocytes 0.8 Absolute Eosinophils 0.0 Absolute Basophils 0.0 Sodium 144.7 Potassium 3.5 L Chloride 111 H Carbon Dioxide 19 L Anion Gap 15 BUN 11 Creatinine 0.60 Est GFR ( Amer) > 60 Est GFR (Non-Af Amer) > 60 Glucose 215 H Calcium 10.4 H 03/10/17 03/11/17 04:19 04:18 Creatine Kinase 121 CK-MB (CK-2) 0.90 Impressions: Abdomen Ultrasound 03/10/17 00:00 IMPRESSION: FATTY LIVER. CHOLELITHIASIS. PANCREAS PARTIALLY OR COMPLETELY OBSCURED. OTHERWISE NORMAL RIGHT UPPER QUADRANT ULTRASOUND. Assessment & Plan - Diagnosis (1) Adult failure to thrive syndrome Is this a current diagnosis for this admission?: Yes Plan: Patient lives alone at home, with her daughter that checks on her frequently. She was found lying on the floor for more than 12 hours after a fall at home. Podiatry saw patient for ingrown toenails. Patient will probably need SNF placement vs daughter states she might take patient to live with her in [place]. PT/ OT/social science teacher consulted (2) Urinary tract infection Qualifiers: Urinary tract infection type: acute cystitis Hematuria presence: without hematuria Qualified Code(s): N30.00 - Acute cystitis without hematuria Is this a current diagnosis for this admission?: Yes Plan: Acute cystitis due to Escherichia coli and pseudomonas aeruginosa. Afebrile with no leukocytosis. Blood cultures NGTD. 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 We will await input from oncology. Continue current pain management. (4) Hypercalcemia Is this a current diagnosis for this admission?: Yes Plan: Most likely related to malignancy given the peau d'orange appearance of the right breast. Improving, Calcium 10.4 (13.5) with IV fluids. Oncology to see (5) Elevated LFTs Is this a current diagnosis for this admission?: Yes Plan: AST/ALT 103/84 [71/65], alkaline phosphatase 206 [233]. Right upper quadrant ultrasound with evidence of fatty liver, Colelithiasis, pancreas was partially or completely obscured. Follow labs (6) History of DVT (deep vein thrombosis) Is this a current diagnosis for this admission?: Yes Plan: History of DVT/PE s/p prior IVC filter placement. Continue home Rivaroxaban. (7) Dehydration Is this a current diagnosis for this admission?: Yes Plan: Continue IV fluids as ordered (8) Essential hypertension Is this a current diagnosis for this admission?: Yes Plan: Accelerated hypertension: Blood pressure not at goal. Continue current management: Lisinopril, Metoprolol. Added Chlorthalidone (9) Hypokalemia Is this a current diagnosis for this admission?: Yes Plan: Replete and recheck (10) DVT prophylaxis Is this a current diagnosis for this admission?: Yes Plan: Patient is on rivaroxaban - Time Time Spent with patient: 35 or more minutes Medications reviewed and adjusted accordingly: Yes Anticipated discharge: SNF Disposition: SNF versus home with daughter who plans to take patient to her home in [place] - Inpatient Certification Based on my medical assessment, after consideration of the patient's comorbidities, presenting symptoms, or acuity I expect that the services needed warrant INPATIENT care.: Yes I certify that my determination is in accordance with my understanding of Medicare's requirements for reasonable and necessary INPATIENT services [42 CFR 412.3e].: Yes Medical Necessity: Risk of Complication if Not Cared For in Hospital
[2017-03-12] MEDS: NYSTATIN CREAM 15 GM TP SCH ×2 (12:14→17:32)
[2017-03-12] MEDS: RIVAROXABAN 10 MG TABLET PO SCH (17:19)
[2017-03-12] MEDS: HYDRALAZINE HCL INJ/PF 20 MG/1 ML SDV IV PRN (17:21)
[2017-03-12] MEDS ORDERED: INSULIN GLARGINE,HUM.REC.ANLOG 300 UNIT/3 ML INSULN.PEN SUBCUT SCH (22:00)
[2017-03-13] MEDS: HYDRALAZINE HCL INJ/PF 20 MG/1 ML SDV IV PRN ×2 (02:47→17:01)
[2017-03-13] MEDS: INSULIN LISPRO 100 UNIT/ML 3 ML VIAL SUBCUT PRN ×4 (08:11→21:44)
[2017-03-13] MEDS: DOCUSATE SODIUM 100 MG CAPSULE PO SCH ×2 (09:31→17:09)
[2017-03-13] MEDS: LISINOPRIL 10 MG TABLET PO SCH (09:32)
[2017-03-13] MEDS: CHLORTHALIDONE 25 MG TABLET PO SCH (09:33)
[2017-03-13] MEDS: METOPROLOL SUCCINATE 50 MG TAB.SR.24H PO SCH ×2 (09:33→21:44)
[2017-03-13] MEDS: POLYETHYLENE GLYCOL 3350 POWDER 17 GM/1 PACKET PO SCH (09:35)
[2017-03-13] MEDS: NYSTATIN CREAM 15 GM TP SCH ×2 (09:35→17:13)
[2017-03-13] MEDS: ERYTHROMYCIN 0.5% OPH OINTMENT 3.5 GM TUBE OD SCH ×2 (09:35→17:13)
[2017-03-13] MEDS ORDERED: CEFTRIAXONE 1 GM/D5W RTU 1 GM/50 ML RTUPB IV ONE (10:00)
--- NOTE | 2017-03-13 10:50 | PDOC PROGRESS REPORT ---
Subjective Progress Note for:: 03/13/17 Subjective:: Day 4 of hospitalization. Follow-up visit for patient admitted with failure to thrive and falls, and found to have an inflammatory right breast mass with hypercalcemia Patient is a 76-year-old female past medical history of hypertension dyslipidemia, colon cancer, PE, who was brought to the hospital after being found on the ground after laying there for about 12 hours. Patient stated that she fell in the morning onto her right shoulder and back and was unable to get up until evening when she was found by daughter who then contacted EMS. She did complain of mild dull constant burning pain to her right flank. She was noted to be very unkempt and dirty, was found to have a urinary tract infection as well as hypercalcemia. Her right breast had a 'peau d'orange' appearance. She received IV fluid boluses and has been started on IV antibiotics. She is clinically improved, and has remained afebrile since admission. The patient has been seen by oncology this morning. Breast biopsy as well as CT scan of the chest abdomen and pelvis has been scheduled. Overnight events noted. She reports feeling better: denies any shortness of breath, nausea vomiting diarrhea, any focal neurologic deficit. She has been afebrile. Physical Exam Vital Signs: Temp Pulse Resp BP Pulse Ox 98.7 F 76 18 175/69 H 96 03/13/17 07:33 03/13/17 07:33 03/13/17 07:33 03/13/17 07:33 03/13/17 07:33 Intake & Output 03/12/17 03/13/17 03/14/17 06:59 06:59 06:59 Intake Total 5068 812 Balance 5068 812 Weight 76.7 kg 76.9 kg General appearance: PRESENT: no acute distress, cooperative Head exam: PRESENT: atraumatic, normocephalic Eye exam: PRESENT: conjunctiva pink, EOMI Respiratory exam: PRESENT: rhonchi, symmetrical, unlabored Cardiovascular exam: PRESENT: RRR, +S1, +S2. ABSENT: bradycardia, clicks, diastolic murmur, gallop, irregular rhythm, rubs, systolic murmur, tachycardia, other GI/Abdominal exam: PRESENT: normal bowel sounds, soft. ABSENT: ascites, diminished bowel sounds, distended, firm, guarding, hernia, hyperactive bowel sounds, hypoactive bowel sounds, mass, Madrigal's sign, organolmegaly, rebound, rigid, tenderness, other Neurological exam: PRESENT: awake, oriented to person, oriented to place, oriented to time, oriented to situation, reflexes normal, CN II-XII grossly intact Results Laboratory Results: 03/12/17 04:27 03/12/17 04:27 03/10/17 03/11/17 04:19 04:18 Creatine Kinase 121 CK-MB (CK-2) 0.90 Impressions: Abdomen Ultrasound 03/10/17 00:00 IMPRESSION: FATTY LIVER. CHOLELITHIASIS. PANCREAS PARTIALLY OR COMPLETELY OBSCURED. OTHERWISE NORMAL RIGHT UPPER QUADRANT ULTRASOUND. Status: Image reviewed by me Assessment & Plan - Diagnosis (1) Adult failure to thrive syndrome Is this a current diagnosis for this admission?: Yes Plan: Patient lives alone at home, with her daughter that checks on her frequently. She was found lying on the floor for more than 12 hours after a fall at home. Podiatry has seen patient for ingrown toenails. Once inpatient workup completed , patient will probably need SNF placement vs daughter states she might take patient to live with her in [place]. 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 Oncology input noted: Patient will require breast biopsy, and radiologic workup for staging. Continue current pain management. (4) Hypercalcemia Is this a current diagnosis for this admission?: Yes Plan: Most likely related to malignancy given the peau d'orange appearance of the right breast. Improving, Calcium 10.4 (13.5) with IV fluids. Oncology input noted (5) Elevated LFTs Is this a current diagnosis for this admission?: Yes Plan: AST/ALT 103/84 [71/65], alkaline phosphatase 206 [233]. Right upper quadrant ultrasound with evidence of fatty liver, Colelithiasis, pancreas was partially or completely obscured. Follow labs (6) History of DVT (deep vein thrombosis) Is this a current diagnosis for this admission?: Yes Plan: History of DVT/PE s/p prior IVC filter placement. Continue home Rivaroxaban. (7) Dehydration Is this a current diagnosis for this admission?: Yes Plan: Resolved with IV fluids (8) Essential hypertension Is this a current diagnosis for this admission?: Yes Plan: Accelerated hypertension: Blood pressure not at goal. Continue current management: Lisinopril, Metoprolol, Chlorthalidone and adjust as needed (9) Hypokalemia Is this a current diagnosis for this admission?: Yes Plan: Replete and recheck (10) DVT prophylaxis Is this a current diagnosis for this admission?: Yes Plan: Patient is on rivaroxaban - Time Time Spent with patient: 35 or more minutes - Including time to discuss with oncology regarding her recommendations full plan of care: Surgery consult for breast biopsy; chest and abdominopelvic CT scan for staging. Patient will also require a PET CT scan eventually Anticipated discharge: SNF - SNF versus home with home health with daughter from [place] as per their request - Inpatient Certification Medical Necessity: Risk of Diagnosis Which Will Require Inpatient Eval/Care/ Monitoring
[2017-03-13] MEDS ORDERED: INSULIN GLARGINE,HUM.REC.ANLOG 300 UNIT/3 ML INSULN.PEN SUBCUT SCH (10:54)
[2017-03-13] MEDS ORDERED: MEGESTROL ACETATE SUSP 400 MG/10 ML UDCUP PO ONE (12:30)
--- NOTE | 2017-03-13 13:32 | CONSULTATION REPORT E ---
Consultation Report NAME: JOSH VALERA : 1940 AGE: 76Y DATE: 03/13/2017 309 A TO: BRYANT ALBRIGHT M.D. FROM: FABIÁN BLEDSOE M.D. Requesting Physician Patient referred because of probable inflammatory breast cancer. CONSULTATION REPORT: The patient is a 76-year-old woman who was admitted into the hospital 03/09/2017. She had presented with a fall, she was found on the ground laying for approximately 12 hours, she was unkempt with feces all over her. When she arrived in the hospital, she was hypercalcemic and dehydrated, physical exam had shown the presence of an abnormal right breast. I saw her at the bedside today. She was able to recognize me as well as the nurse and she states that she feels a little bit better. Past medical history includes a history of colon cancer that was diagnosed in 2008. It was stage 2b. She had presented with a near obstructing lesion. It was a T4, N0, M0. She underwent resection of the colon cancer followed by adjuvant chemotherapy with Folfox, which she tolerated well and has since been in remission with regards to the colon cancer. She now presents with an abnormal right breast highly suspicious for inflammatory breast cancer. PAST MEDICAL HISTORY: Other medical problems includes: 1. History of high blood pressure. 2. Ahz-xlrcpqp-aanvixczk diabetes mellitus. 3. Hyperlipidemia. 4. She is on Xarelto because of a history of DVT and pulmonary embolism. ALLERGIES: She is allergic to PENICILLIN. FAMILY HISTORY: She has a brother with cancer. She has a *------* diagnosed with cancer. PHYSICAL EXAMINATION: GENERAL: She is an elderly woman. She does not look acutely ill looking. She is in bed trying to eat her breakfast, picking on the food. BREAST: She does have an enlarged red right breast with nodularity, highly suspicious for malignancy. ABDOMEN: Soft. Liver and spleen also enlarged. EXTREMITIES: No edema. LABORATORY: Blood work 03/12/2017: White count is 9.2, hemoglobin is 10.3, platelet count is 259. Sodium 144.7, potassium 3.6, BUN 11, creatinine 0.6. IMPRESSION AND PLAN: The patient is a 76-year-old woman with a history of colon cancer on Xarelto for thrombophilia. She now presents with an abnormal right breast. I explained the findings to her, I would recommend a biopsy of the breast lesion and a staging with CAT scan of her chest and abdomen as well as a bone scan. Inflammatory breast cancer or metastatic breast cancer, if she is found to have metastasis, is treatable. She has received chemotherapy in the past and tolerated fairly well. I will await hormonal stains on the specimen to see if she ER/MO positive as she may also respond to tamoxifen or the aromatase inhibitors. I did *------* her medical condition with her 2 daughters. I will await the results of the biopsy and the scan. In the interim, I will recommend starting her on Megace to help increase her appetite and also could be used in the treatment of breast cancer. I thank you for this consultation and allowing me to be a part of her care. DICTATING PHYSICIAN: BRYANT ALBRIGHT M.D. [id number] PHY#: [id number] ID: [id number] JOB#: [id number] ACCT: [id number] cc:BRYANT ALBRIGHT M.D. >
[2017-03-13 13:58] LABS: VITAMIN D 1,25 DIHYDROXY 20.5 pg/mL (19.9-79.3)
--- NOTE | 2017-03-13 18:23 | RADIOLOGY REPORT (SQ) ---
EXAM DESCRIPTION: CT CHEST WITH COMPLETED DATE/TIME: 03/13/2017 6:08 pm REASON FOR STUDY: breast mass r/o malig (h/o colon cancer) COMPARISON: 07/05/2010 TECHNIQUE: CT scan of the chest performed using helical scanning technique with dynamic intravenous contrast injection. Images reviewed with lung, soft tissue and bone windows. Reconstructed coronal and sagittal MPR images reviewed. All images stored on PACS. All CT scanners at this facility use dose modulation, iterative reconstruction, and/or weight based d osing when appropriate to reduce radiation dose to as low as reasonably achievable (ALARA). [facility]: Dose Right [facility]: CareDose [facility]: Dose Right [facility]: Teradose 4D [facility]: [employer] CONTRAST TYPE AND DOSE: contrast/concentration: Isovue 370.00 mg/ml; Total Contrast Delivered: 83.0 ml; Total Saline Delivered: 63.0 ml RENAL FUNCTION: Not recorded at this time. RADIATION DOSE: Total exam DLP: 833 mGy cm. LIMITATIONS: None. FINDINGS: LUNGS AND PLEURA: Subsegmental atelectasis in the lung bases. No acute infiltrates or mas ses. No pleural effusion HILAR AND MEDIASTINAL STRUCTURES: No identified masses or abnormal nodes. HEART AND VASCULAR STRUCTURES: No aneurysm or dissection. No central pulmonary emboli. No pericardi al effusion. HARDWARE: None in the chest. UPPER ABDOMEN: See separate report of the CT of the abdomen. THYROID AND OTHER SOFT TISSUES: Thyroid unremarkable. There is a large mass in the right breast. Th ere is marked skin thickening in the breast. Right axillary adenopathy is present. BONES: No osseous lesions are seen in the chest. OTHER: No other significant finding. IMPRESSION: Large right breast mass with axillary adenopathy marked skin thickening highly concernin g for neoplasm. No pulmonary or osseous metastases are seen in the chest. TECHNICAL DOCUMENTATION: JOB ID: [id number] Quality ID # [id number]: Final reports with documentation of one or more dose reduction techniques (e.g., Au tomated exposure control, adjustment of the mA and/or kV according to patient size, use of iterative reconstruction technique) 2010 [employer]- All Rights Reserved
--- NOTE | 2017-03-13 18:33 | RADIOLOGY REPORT (SQ) ---
EXAM DESCRIPTION: CT ABD/PELVIS WITH IV ORAL COMPLETED DATE/TIME: 03/13/2017 6:08 pm REASON FOR STUDY: breast mass r/o malig (h/o colon cancer) COMPARISON: None. TECHNIQUE: CT scan of the abdomen and pelvis performed using helical scanning technique with dynamic intravenous contrast injection. Oral contrast. Images reviewed with lung, soft tissue, and bone win dows. Reconstructed coronal and sagittal MPR images reviewed. Delayed images for evaluation of the ur inary system also acquired. All images stored on PACS. All CT scanners at this facility use dose modulation, iterative reconstruction, and/or weight based d osing when appropriate to reduce radiation dose to as low as reasonably achievable (ALARA). [facility]: Dose Right [facility]: CareDose [facility]: Dose Right [facility]: Teradose 4D [facility]: Visible Measures CONTRAST TYPE AND DOSE: 83 cc Isovue 370- low osmolar. RENAL FUNCTION: Not recorded at this time. RADIATION DOSE: Up-to-date CT equipment and radiation dose reduction techniques were employed. CTDIv ol: 6.1 - 6.8 mGy. DLP: 833 mGy-cm.. LIMITATIONS: None. FINDINGS: LOWER CHEST: See separate report of the CT of the chest. LIVER: Normal size. No masses. No dilated ducts. SPLEEN: Normal size. No focal lesions. PANCREAS: No masses. No significant calcifications. No adjacent inflammation or peripancreatic fluid collections. Pancreatic duct not dilated. GALLBLADDER: No identified stones by CT criteria. No inflammatory changes to suggest cholecystitis. ADRENAL GLANDS: No significant masses or asymmetry. RIGHT KIDNEY AND URETER: No solid masses. No significant calcifications. No hydronephrosis or hyd roureter. LEFT KIDNEY AND URETER: No solid masses. No significant calcifications. No hydronephrosis or hydr oureter. AORTA AND VESSELS: No aneurysm. There appears to be some degree of stenosis of the origin of the juvencio iac artery. RETROPERITONEUM: No retroperitoneal adenopathy, hemorrhage or masses. BOWEL AND PERITONEAL CAVITY: There appears to be a partial colectomy on the left. APPENDIX: Normal. PELVIS: There appears to be some thickening of the posterior bladder wall. The endometrial canal kayy ears prominent. ABDOMINAL WALL: No masses. No hernias. BONES: The left ilium is somewhat heterogeneous. OTHER: Right breast mass is once again seen. IMPRESSION: 1. Right breast mass. 2. 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 3. Questionable thickening the posterior bladder wall. 4. Endometrial canal is prominent for patient age. Pelvic ultrasound is recommended. 5. The left ilium is somewhat heterogeneous. Metastatic disease cannot be excluded. TECHNICAL DOCUMENTATION: JOB ID: [id number] Quality ID # [id number]: Final reports with documentation of one or more dose reduction techniques (e.g., Au tomated exposure control, adjustment of the mA and/or kV according to patient size, use of iterative reconstruction technique) 2010 [facility]- All Rights Reserved
--- NOTE | 2017-03-13 18:56 | PDOC CONSULTATION ---
Consultation Consult Date: 03/13/17 Attending physician:: FAYE ENRIQUEZ Consult reason:: Right breast mass History of Present Illness Admission Date/PCP: 03/09/17 21:59 Patient complains of: right breast mass History of Present Illness: JOSH VALERA is a 76 year old female with a past medical history of hypertension, hyperlipidemia, colon cancer, PE, who is admitted to the hospitalist service after being found laying on the ground for approximately 12 hours. She was also found to have 'bruising '' of her right breast. According to her family this has been going on for 5-6 months now. she does have a history of colon cancer diagnosed and treated 8 years ago. She had a mediport that was only removed this past summer. That mediport was over the right chest wall superior to the breast. She denies nipple discharge or bleed. A consult has been placed for a breast biopsy. She does take Xarelto for her history of PE and last dose was yesterday evening. Past Medical History Cardiac Medical History: Reports: Hyperlipidema, Hypertension, Pulmonary Embolism Endocrine Medical History: Reports: Diabetes Mellitus Type 2 Malignancy Medical History: Reports: Colorectal Cancer Psychiatric Medical History: Denies: Depression Past Surgical History Past Surgical History: Reports: Cardiac Catheterization, Other - Port insertion and removal partial colectomy Social History Lives with: Family Smoking Status: Never Smoker Frequency of Alcohol Use: None Hx Recreational Drug Use: No Drugs: None Hx Prescription Drug Abuse: No - Advance Directive Resuscitation Status: Full Code Family History Family History: Reviewed & Not Pertinent Parental Family History Reviewed: Yes Children Family History Reviewed: Yes Sibling(s) Family History Reviewed.: Yes Medication/Allergy Home Medications: Ascorbic Acid [Vitamin C 500 mg Tablet] 250 mg PO DAILY 03/10/17 Aspirin [Adult Low Dose Aspirin EC] 81 mg PO DAILY 03/10/17 Cholecalciferol (Vitamin D3) [Vitamin D3 1000 Unit Tablet] 2,000 unit PO DAILY 03/10/17 Glipizide [Glucotrol 10 mg Tablet] 10 mg PO DAILY 03/10/17 Insulin Glargine,Hum.rec.anlog [Lantus Insulin 100 Unit/1 ml 10 ml] 40 units SQ QAM 03/10/17 Metformin HCl [Glucophage] 1,000 mg PO BIDBS 03/10/17 Metoprolol Tartrate [Lopressor 100 mg Tablet] 100 mg PO Q12 03/10/17 Pomegranate Fruit Extract [Pomegranate] 250 mg PO BID 03/10/17 Rivaroxaban [Xarelto 15 mg Tablet] 15 mg PO QHS 03/10/17 [place] Oil/[place]-3 Fatty Acids [[place] Oil-1,000 Capsule] 2 cap PO DAILY Ubidecarenone [Coq-10] 100 mg PO QID 03/10/17 Allergies/Adverse Reactions: Penicillins Allergy (Verified 03/09/17 18:30) Review of Systems Constitutional: PRESENT: as per HPI Nose, Mouth, and Throat: PRESENT: other - no bleeding Breasts: PRESENT: as per HPI Gastrointestinal: PRESENT: other - No abdominal pain, distension, constipation or rectal bleed Musculoskeletal: PRESENT: muscle weakness Integumentary: PRESENT: as per HPI - right breast skin changes Neurological: PRESENT: other - no confusion or paresthesias at this time Physical Exam Vital Signs: Temp Pulse Resp BP Pulse Ox 98.5 F 76 18 201/76 H 98 03/13/17 16:30 03/13/17 16:30 03/13/17 16:30 03/13/17 16:30 03/13/17 16:30 Intake & Output 03/12/17 03/13/17 03/14/17 06:59 06:59 06:59 Intake Total 5068 812 0 Balance 5068 812 0 Weight 76.7 kg 76.9 kg General appearance: PRESENT: no acute distress Head exam: PRESENT: atraumatic Eye exam: PRESENT: conjunctiva pink Ear exam: PRESENT: normal external ear exam Mouth exam: PRESENT: moist Neck exam: PRESENT: full ROM Respiratory exam: PRESENT: clear to auscultation zane Cardiovascular exam: PRESENT: RRR, +S1, +S2 GI/Abdominal exam: PRESENT: other - Abdomen is flat, port site incisoins in the uper and umbilical areas of the abdomen Neurological exam: PRESENT: alert, oriented to person, oriented to place, oriented to time, CN II-XII grossly intact Skin exam: PRESENT: other - Right Breast with skin hyperpigmentation, hardness of the skin with nodules, nipple retraction and a mass within the breast. Results Laboratory Results: 03/12/17 04:27 03/12/17 04:27 03/10/17 03/11/17 04:19 04:18 Creatine Kinase 121 CK-MB (CK-2) 0.90 Impressions: Abdomen Ultrasound 03/10/17 00:00 IMPRESSION: FATTY LIVER. CHOLELITHIASIS. PANCREAS PARTIALLY OR COMPLETELY OBSCURED. OTHERWISE NORMAL RIGHT UPPER QUADRANT ULTRASOUND. Abdomen/Pelvis CT 03/13/17 00:00 IMPRESSION: 1. Right breast mass. 2. 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 3. Questionable thickening the posterior bladder wall. 4. Endometrial canal is prominent for patient age. Pelvic ultrasound is recommended. 5. The left ilium is somewhat heterogeneous. Metastatic disease cannot be excluded. Chest CT 03/13/17 00:00 IMPRESSION: Large right breast mass with axillary adenopathy marked skin thickening highly concerning for neoplasm. No pulmonary or osseous metastases are seen in the chest. Assessment & Plan - Diagnosis (1) Large mass of right breast Plan: The patient will be scheduled for a core needle biopsy in 48 hrs - to reduce bleeding from Rivaroxaban. The plan was discussed with the patient and her family to their satisfaction. . - Time Time Spent: 30 to 50 Minutes Critical Time spent with patient: 25-34 minutes
[2017-03-13] MEDS: HYDROMORPHONE HCL INJ/PF 2 MG/ML AMPULE IV PRN (22:43)
[2017-03-14] MEDS: INSULIN LISPRO 100 UNIT/ML 3 ML VIAL SUBCUT PRN ×4 (08:25→22:23)
[2017-03-14] MEDS: MEGESTROL ACETATE SUSP 400 MG/10 ML UDCUP PO SCH (11:13)
[2017-03-14] MEDS: LISINOPRIL 10 MG TABLET PO SCH (11:14)
[2017-03-14] MEDS: CHLORTHALIDONE 25 MG TABLET PO SCH (11:14)
[2017-03-14] MEDS: METOPROLOL SUCCINATE 50 MG TAB.SR.24H PO SCH ×2 (11:15→22:23)
[2017-03-14] MEDS: ERYTHROMYCIN 0.5% OPH OINTMENT 3.5 GM TUBE OD SCH ×2 (11:16→18:00)
[2017-03-14] MEDS: DOCUSATE SODIUM 100 MG CAPSULE PO SCH ×2 (11:16→18:00)
[2017-03-14] MEDS: POLYETHYLENE GLYCOL 3350 POWDER 17 GM/1 PACKET PO SCH (11:25)
[2017-03-14] MEDS: NYSTATIN CREAM 15 GM TP SCH ×2 (11:25→17:48)
--- NOTE | 2017-03-14 14:19 | PDOC PROGRESS REPORT ---
Subjective Progress Note for:: 03/14/17 Subjective:: Patient is a 76-year-old female past medical history of hypertension dyslipidemia, colon cancer, and PE, who was brought to the hospital after being found on the ground, laying there for about 12 hours. Patient stated that she fell in the morning onto her right shoulder and back and was unable to get up until evening when she was found by her daughter, who then contacted EMS. She did complain of mild dull constant burning pain to her right flank. She was noted to be very unkempt and dirty, was found to have a urinary tract infection as well as hypercalcemia. Her urine culture grew E. coli and Pseudomonas that were both sensitive to ciprofloxacin. She received IV fluids with a subsequent improvement in her serum calcium. Her right breast had a 'peau d'orange' appearance. The skin was hyperpigmented and firm. She had a mass that was palpable. Her nipple was retracted. Surgery and oncology were consulted. CT chest showed a large right breast mass with axillary adenopathy, marked skin thickening, highly concerning for neoplasm. There were no pulmonary or osseous metastasis seen in the chest. In the abdomen, there appeared to be a stenosis of the origin of the celiac artery. There is questionable thickening of the posterior bladder wall. The endometrial canal is prominent, given her age. Pelvic ultrasound is recommended. (If indicated) The left ilium is somewhat heterogeneous. Metastatic disease could not be excluded. Her anticoagulation has been inhaled. The plan is for her to undergo biopsy of the right breast mass 03/15/2017. Subjective: No problems overnight. She is without pain. She has no specific complaints. Her daughter is at bedside. Physical Exam Vital Signs: Temp Pulse Resp BP Pulse Ox 97.8 F 73 16 144/60 H 96 03/14/17 08:21 03/14/17 08:21 03/14/17 08:21 03/14/17 08:21 03/14/17 08:21 Intake & Output 03/13/17 03/14/17 03/15/17 06:59 06:59 06:59 Intake Total 812 227 Balance 812 227 Weight 76.9 kg 74.2 kg General appearance: PRESENT: no acute distress, cooperative Head exam: PRESENT: atraumatic, normocephalic Eye exam: PRESENT: conjunctiva pink, EOMI, PERRLA. ABSENT: scleral icterus Teeth exam: PRESENT: edentulous Neck exam: ABSENT: carotid bruit, JVD, lymphadenopathy, thyromegaly Respiratory exam: PRESENT: clear to auscultation zane. ABSENT: rales, rhonchi, wheezes Cardiovascular exam: PRESENT: RRR. ABSENT: diastolic murmur, rubs, systolic murmur GI/Abdominal exam: PRESENT: normal bowel sounds, soft. ABSENT: distended, guarding, mass, organolmegaly, rebound, tenderness Neurological exam: PRESENT: alert, awake, oriented to person, oriented to place , oriented to time, oriented to situation, CN II-XII grossly intact. ABSENT: motor sensory deficit Psychiatric exam: PRESENT: appropriate affect, normal mood. ABSENT: homicidal ideation, suicidal ideation Skin exam: PRESENT: dry, intact, warm. ABSENT: cyanosis, rash Results Laboratory Results: 03/12/17 04:27 03/12/17 04:27 03/10/17 03/11/17 04: 04:18 Creatine Kinase 121 CK-MB (CK-2) 0.90 Impressions: Abdomen Ultrasound 03/10/17 00:00 IMPRESSION: FATTY LIVER. CHOLELITHIASIS. PANCREAS PARTIALLY OR COMPLETELY OBSCURED. OTHERWISE NORMAL RIGHT UPPER QUADRANT ULTRASOUND. Abdomen/Pelvis CT 03/13/17 00:00 IMPRESSION: 1. Right breast mass. 2. 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 3. Questionable thickening the posterior bladder wall. 4. Endometrial canal is prominent for patient age. Pelvic ultrasound is recommended. 5. The left ilium is somewhat heterogeneous. Metastatic disease cannot be excluded. Chest CT 03/13/17 00:00 IMPRESSION: Large right breast mass with axillary adenopathy marked skin thickening highly concerning for neoplasm. No pulmonary or osseous metastases are seen in the chest. Assessment & Plan - Diagnosis (1) Large mass of right breast Is this a current diagnosis for this admission?: Yes Plan: Likely malignant. Breast biopsy planned for tomorrow. (2) Urinary tract infection Qualifiers: Urinary tract infection type: acute cystitis Hematuria presence: without hematuria Qualified Code(s): N30.00 - Acute cystitis without hematuria Is this a current diagnosis for this admission?: Yes Plan: Urine cultures growing E. coli and Pseudomonas. Both are sensitive to ciprofloxacin, which she has been started on. She remains afebrile. (3) Diabetes mellitus type 2 in nonobese Is this a current diagnosis for this admission?: Yes Plan: Her blood sugars have been suboptimal. She is on Lantus 25 units at bedtime as well as a Humalog sliding scale. I will increase her Lantus to 30 units at bedtime. (4) Essential hypertension Is this a current diagnosis for this admission?: Yes Plan: Her BP is okay. No changes. (5) Hypercalcemia Is this a current diagnosis for this admission?: Yes Plan: Improved with IV fluids. Recheck in a.m. (6) History of DVT (deep vein thrombosis) Is this a current diagnosis for this admission?: Yes Plan: History of DVT/PE, status post prior IVC filter placement. Rivaroxaban has been held. Resume following biopsy. (7) Elevated LFTs Is this a current diagnosis for this admission?: Yes Plan: Recheck in a.m. right upper quadrant ultrasound showed evidence of fatty liver, and cholelithiasis. The pancreas was partially or completely obscured. - Time Time Spent with patient: 25-34 minutes Medications reviewed and adjusted accordingly: Yes Anticipated discharge: SNF Within: within 72 hours
[2017-03-14] MEDS ORDERED: CIPROFLOXACIN HCL 500 MG TABLET PO ONE (15:00)
[2017-03-14] MEDS: INSULIN GLARGINE,HUM.REC.ANLOG 300 UNIT/3 ML INSULN.PEN SUBCUT SCH (22:24)
[2017-03-14] MEDS: OXYCODONE-ACETAMINOPHEN 5-325 MG TABLET PO PRN (22:24)
[2017-03-14] MEDS: CIPROFLOXACIN HCL 500 MG TABLET PO SCH (22:24)
[2017-03-15] MEDS: OXYCODONE-ACETAMINOPHEN 5-325 MG TABLET PO PRN (03:01)
[2017-03-15 04:53] LABS: HEMATOCRIT 30.2 % (36.0-47.0); HEMOGLOBIN 10.3 g/dL (12.0-15.5); HGB HCT DIFFERENCE 0.7; MEAN CORPUSCULAR HEMOGLOBIN 27.3 pg (27.0-33.4); MEAN CORPUSCULAR VOLUME 81 fl (80-97); RED BLOOD COUNT 3.76 10^6/uL (3.72-5.28); RED CELL DISTRIBUTION WIDTH 14.4 % (11.5-14.0); WHITE BLOOD COUNT 7.6 10^3/uL (4.0-10.5)
[2017-03-15 05:15] LABS: ALANINE AMINOTRANSFERASE 166 U/L (9-52); ALBUMIN 2.6 g/dL (3.5-5.0); ALKALINE PHOSPHATASE 184 U/L (38-126); ANION GAP 13 (5-19); ASPARTATE AMINO TRANSFERASE 177 U/L (14-36); BILIRUBIN,DIRECT 0.5 mg/dL (0.0-0.4); BILIRUBIN,TOTAL 0.6 mg/dL (0.2-1.3); BLOOD UREA NITROGEN 18 mg/dL (7-20); CALCIUM 10.3 mg/dL (8.4-10.2); CARBON DIOXIDE 24 mmol/L (22-30); CHLORIDE 103 mmol/L (98-107); CREATININE RESULT 0.96 mg/dL (0.52-1.25); GLUCOSE 171 mg/dL (75-110); SODIUM 139.6 mmol/L (137-145); TOTAL PROTEIN 5.2 g/dL (6.3-8.2)
[2017-03-15] MEDS: POTASSIUM CHLORIDE 20 MEQ/50 ML RTU IV SCH ×2 (07:16→11:52)
[2017-03-15 08:50] LABS: PTH RELATED PEPTIDE <1.1 pmol/L (.)
[2017-03-15] MEDS: NYSTATIN CREAM 15 GM TP SCH ×2 (11:13→18:34)
[2017-03-15] MEDS ORDERED: LIDOCAINE 1% INJ-PF (10 MG/ML) 30 ML SDV INJ PRN (11:23)
[2017-03-15] MEDS: POTASSIUM CHLORIDE 10 MEQ TABLET.SA PO SCH ×3 (13:50→21:29)
[2017-03-15] MEDS: CIPROFLOXACIN HCL 500 MG TABLET PO SCH ×2 (13:51→21:29)
[2017-03-15] MEDS: METOPROLOL SUCCINATE 50 MG TAB.SR.24H PO SCH ×2 (13:51→21:29)
[2017-03-15] MEDS: LISINOPRIL 10 MG TABLET PO SCH (13:52)
[2017-03-15] MEDS: DOCUSATE SODIUM 100 MG CAPSULE PO SCH ×2 (13:53→18:33)
[2017-03-15] MEDS: ERYTHROMYCIN 0.5% OPH OINTMENT 3.5 GM TUBE OD SCH ×2 (13:53→18:34)
[2017-03-15] MEDS: MEGESTROL ACETATE SUSP 400 MG/10 ML UDCUP PO SCH (13:53)
[2017-03-15] MEDS: CHLORTHALIDONE 25 MG TABLET PO SCH (13:54)
[2017-03-15] MEDS: POLYETHYLENE GLYCOL 3350 POWDER 17 GM/1 PACKET PO SCH (14:09)
[2017-03-15] MEDS: MAGNESIUM SULFATE 1 GM/D5W 100 ML IV SCH ×2 (14:11→16:52)
[2017-03-15] MEDS ORDERED: IBUPROFEN 400 MG TABLET PO PRN (15:26)
--- NOTE | 2017-03-15 15:28 | PDOC PROGRESS REPORT ---
Subjective Progress Note for:: 03/15/17 Subjective:: No problems overnight. She has no complaints this morning. Physical Exam Vital Signs: Temp Pulse Resp BP Pulse Ox 97.8 F 79 18 147/67 H 92 03/15/17 04:48 03/15/17 04:48 03/15/17 04:48 03/15/17 04:48 03/15/17 04:48 Intake & Output 03/14/17 03/15/17 03/16/17 06:59 06:59 06:59 Intake Total 227 437 Balance 227 437 Weight 74.2 kg 75.2 kg General appearance: PRESENT: no acute distress, cooperative Head exam: PRESENT: atraumatic, normocephalic Neck exam: ABSENT: carotid bruit, JVD, lymphadenopathy, thyromegaly Respiratory exam: PRESENT: clear to auscultation zane. ABSENT: rales, rhonchi, wheezes Cardiovascular exam: PRESENT: RRR. ABSENT: diastolic murmur, rubs, systolic murmur GI/Abdominal exam: PRESENT: normal bowel sounds. ABSENT: ascites, distended, firm, mass, tenderness Neurological exam: PRESENT: alert, awake, oriented to person, oriented to place , oriented to time, oriented to situation, CN II-XII grossly intact. ABSENT: motor sensory deficit Psychiatric exam: PRESENT: appropriate affect, normal mood. ABSENT: homicidal ideation, suicidal ideation Results Laboratory Results: 03/15/17 04:07 03/15/17 04:07 03/15/17 03/15/17 04:07 04:07 WBC 7.6 RBC 3.76 Hgb 10.3 L Hct 30.2 L MCV 81 MCH 27.3 MCHC 34.0 RDW 14.4 H Plt Count 206 Sodium 139.6 Potassium 3.0 L* Chloride 103 Carbon Dioxide 24 Anion Gap 13 BUN 18 Creatinine 0.96 Est GFR ( Amer) > 60 Est GFR (Non-Af Amer) 56 L Glucose 171 H Calcium 10.3 H Total Bilirubin 0.6 AST 177 H ALT 166 H Alkaline Phosphatase 184 H Total Protein 5.2 L Albumin 2.6 L 03/09/17 22:23 Blood Blood Culture - Final NO GROWTH IN 5 DAYS 03/10/17 03/11/17 04:19 04:18 Creatine Kinase 121 CK-MB (CK-2) 0.90 Impressions: Abdomen Ultrasound 03/10/17 00:00 IMPRESSION: FATTY LIVER. CHOLELITHIASIS. PANCREAS PARTIALLY OR COMPLETELY OBSCURED. OTHERWISE NORMAL RIGHT UPPER QUADRANT ULTRASOUND. Abdomen/Pelvis CT 03/13/17 00:00 IMPRESSION: 1. Right breast mass. 2. 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 3. Questionable thickening the posterior bladder wall. 4. Endometrial canal is prominent for patient age. Pelvic ultrasound is recommended. 5. The left ilium is somewhat heterogeneous. Metastatic disease cannot be excluded. Chest CT 03/13/17 00:00 IMPRESSION: Large right breast mass with axillary adenopathy marked skin thickening highly concerning for neoplasm. No pulmonary or osseous metastases are seen in the chest. Assessment & Plan - Diagnosis (1) Large mass of right breast Is this a current diagnosis for this admission?: Yes Plan: Likely malignant. Breast biopsy planned for today. (2) Urinary tract infection Qualifiers: Urinary tract infection type: acute cystitis Hematuria presence: without hematuria Qualified Code(s): N30.00 - Acute cystitis without hematuria Is this a current diagnosis for this admission?: Yes Plan: Urine cultures growing E. coli and Pseudomonas. Both are sensitive to ciprofloxacin, which she has been started on (Day #2). She remains afebrile. (3) Diabetes mellitus type 2 in nonobese Is this a current diagnosis for this admission?: Yes Plan: Her blood sugars have been suboptimal. I increased her Lantus insulin from 25 units to 30 units at bedtime yesterday evening. Today her blood sugars have improved. Continue to monitor for now. Consider increasing Lantus, but tight control is probably not warranted given her waxing and waning appetite. (4) Essential hypertension Is this a current diagnosis for this admission?: Yes Plan: Her BP is okay. No changes. (5) Hypercalcemia Is this a current diagnosis for this admission?: Yes Plan: Improved with IV fluids. (6) History of DVT (deep vein thrombosis) Is this a current diagnosis for this admission?: Yes Plan: History of DVT/PE, status post prior IVC filter placement. Rivaroxaban has been held. Resume following biopsy. (7) Elevated LFTs Is this a current diagnosis for this admission?: Yes Plan: Right upper quadrant ultrasound showed evidence of fatty liver, and cholelithiasis. The pancreas was partially or completely obscured. I will discontinue acetaminophen products. Recheck tomorrow. Ibuprofen prn pain. - Time Time Spent with patient: 15-24 minutes Medications reviewed and adjusted accordingly: Yes Anticipated discharge: SNF - Inpatient Certification Based on my medical assessment, after consideration of the patient's comorbidities, presenting symptoms, or acuity I expect that the services needed warrant INPATIENT care.: Yes I certify that my determination is in accordance with my understanding of Medicare's requirements for reasonable and necessary INPATIENT services [42 CFR 412.3e].: Yes Medical Necessity: Significant Comorbidiites Make Outpatient Treatment Too Risky
[2017-03-15] MEDS ORDERED: MAGNESIUM SULFATE/D5W 1 GM/100 ML RTUPB IV ONE (16:03)
--- NOTE | 2017-03-15 16:51 | Operative Report ---
Operative Report DATE OF SURGERY: 03/15/17 PREOPERATIVE DIAGNOSIS: Infiltrative Right Breast Mass POSTOPERATIVE DIAGNOSIS: Infiltrative Right Breast Mass OPERATION: Core Needle Biopsy of Infiltrative Right Breast Mass SURGEON: FAYE ENRIQUEZ ANESTHESIA: Local TISSUE REMOVED OR ALTERED: Core needle specimens of right breast mass COMPLICATIONS: None ESTIMATED BLOOD LOSS: 10ml INTRAOPERATIVE FINDINGS: Hyperpigmentation of the skin over the right breast. Nipple retraction. Skin nodules over the right breast. The entire right breast is replaced by a hard mass PROCEDURE: The procedure was done i the patient's room. She was positiond supine. The blayne of the right breast to be biopsied was prepp with alcohol and local anesthesia infiltrated. The core biopsy needle was passed four times into the mass at the upper inner quadrant of the breast obtaining core biopsy specimens which were sent off in a formalin bottle. The wound was covered with 4x4 gauze and tape. The patient tolerated the procedure well.
[2017-03-15] MEDS: INSULIN LISPRO 100 UNIT/ML 3 ML VIAL SUBCUT PRN (18:33)
[2017-03-15] MEDS: INSULIN GLARGINE,HUM.REC.ANLOG 300 UNIT/3 ML INSULN.PEN SUBCUT SCH (21:39)
[2017-03-16 06:42] LABS: ALANINE AMINOTRANSFERASE 234 U/L (9-52); ALBUMIN 2.8 g/dL (3.5-5.0); ALKALINE PHOSPHATASE 212 U/L (38-126); ANION GAP 13 (5-19); ASPARTATE AMINO TRANSFERASE 284 U/L (14-36); BILIRUBIN,DIRECT 0.4 mg/dL (0.0-0.4); BILIRUBIN,TOTAL 0.7 mg/dL (0.2-1.3); BLOOD UREA NITROGEN 14 mg/dL (7-20); CARBON DIOXIDE 20 mmol/L (22-30); CHLORIDE 109 mmol/L (98-107); CREATININE RESULT 0.86 mg/dL (0.52-1.25); GLUCOSE 242 mg/dL (75-110); POTASSIUM 5.1 mmol/L (3.6-5.0); SODIUM 141.7 mmol/L (137-145); TOTAL PROTEIN 5.5 g/dL (6.3-8.2)
[2017-03-16 06:45] LABS: CALCIUM 10.3 mg/dL (8.4-10.2)
[2017-03-16] MEDS: INSULIN LISPRO 100 UNIT/ML 3 ML VIAL SUBCUT PRN ×4 (09:41→23:54)
[2017-03-16] MEDS: POLYETHYLENE GLYCOL 3350 POWDER 17 GM/1 PACKET PO SCH (09:41)
[2017-03-16] MEDS: DOCUSATE SODIUM 100 MG CAPSULE PO SCH ×2 (09:42→18:29)
[2017-03-16] MEDS: LISINOPRIL 10 MG TABLET PO SCH (09:42)
[2017-03-16] MEDS: CIPROFLOXACIN HCL 500 MG TABLET PO SCH ×2 (09:43→23:53)
[2017-03-16] MEDS: METOPROLOL SUCCINATE 50 MG TAB.SR.24H PO SCH ×2 (09:44→23:52)
[2017-03-16] MEDS: CHLORTHALIDONE 25 MG TABLET PO SCH (09:47)
[2017-03-16] MEDS: MEGESTROL ACETATE SUSP 400 MG/10 ML UDCUP PO SCH (09:47)
[2017-03-16] MEDS: NYSTATIN CREAM 15 GM TP SCH ×2 (09:48→18:30)
[2017-03-16] MEDS: ERYTHROMYCIN 0.5% OPH OINTMENT 3.5 GM TUBE OD SCH ×2 (09:49→18:31)
--- NOTE | 2017-03-16 13:38 | PROGRESS NOTE E ---
Progress Note NAME: JOSH VALERA : 1940 AGE: 76Y DATE: 03/16/2017 ROOM: 309 SUBJECTIVE: The patient is a pleasant 76-year-old female who was admitted with a large right breast mass, urinary tract infection. She has a history of diabetes and history of DVT in the past. She is doing better today. She had a biopsy of the breast mass and waiting for the results. No complaint. OBJECTIVE: GENERAL: The patient is lying in bed, not in distress. VITAL SIGNS: Temperature 98.3, heart rate 77, blood pressure 147/67, saturation 94% room air. HEENT: Head normocephalic, atraumatic. Pupils round, reactive to light and accommodation bilaterally. Extraocular movements intact. Ears: Tympanic membranes intact bilaterally. No discharge from the ear. No discharge from the nose. NECK: Supple, no increased JVD, no thyromegaly, no lymphadenopathy. CARDIOVASCULAR: Normal S1, S2. Regular rate and rhythm. No murmur, no gallops. RESPIRATORY: Lungs clear. ABDOMEN: Soft. MUSCULOSKELETAL: No edema. NEUROLOGIC: Awake, alert. SKIN: No rash. LABORATORY DATA: White blood cell count 7.6, hemoglobin 10.3, hematocrit 30. Creatinine is 0.8, potassium 5.1, sodium 141. Liver enzymes; AST, ALT, and alkaline phosphatase elevated. ASSESSMENT: 1. LARGE RIGHT BREAST MASS, STATUS POST BIOPSY. 2. URINARY TRACT INFECTION. 3. DIABETES TYPE 2. 4. ESSENTIAL HYPERTENSION. 5. HYPERCALCEMIA. 6. HISTORY OF DVT. 7. ELEVATED LIVER ENZYMES. PLAN: We are waiting for breast biopsy result. Continue ciprofloxacin for UTI. Labs tomorrow morning. MEDICAL NECESSITY: Needs IV antibiotics for UTI as well as waiting for the result of biopsy, retested for liver enzymes. DICTATING PHYSICIAN: MYRTLE ELAM M.D. [id number] PHY#: [id number] ID: [id number] JOB#: [id number] ACCT: [id number] cc: >
[2017-03-16] MEDS: INSULIN GLARGINE,HUM.REC.ANLOG 300 UNIT/3 ML INSULN.PEN SUBCUT SCH (23:54)
[2017-03-17] MEDS: HYDROMORPHONE HCL INJ/PF 2 MG/ML AMPULE IV PRN (02:14)
[2017-03-17 05:12] LABS: ABSOLUTE EOSINOPHILS # (AUTO) 0.1 10^3/uL (0.0-0.6); ABSOLUTE LYMPHOCYTES (AUTO) 1.4 10^3/uL (0.5-4.7); ABSOLUTE MONOCYTES (AUTO) 0.8 10^3/uL (0.1-1.4); ABSOLUTE NEUT (AUTO) 6.1 10^3/uL (1.7-8.2); BASOPHILS % (AUTO) 0.5 % (0-2); EOSINOPHILS % (AUTO) 1.5 % (0-6); HEMOGLOBIN 10.4 g/dL (12.0-15.5); HGB HCT DIFFERENCE 0.2; LYMPHOCYTES % (AUTO) 16.7 % (13-45); MEAN CORPUSCULAR HEMOGLOBIN 27.4 pg (27.0-33.4); MEAN CORPUSCULAR HGB CONC 33.6 g/dL (32.0-36.0); MEAN CORPUSCULAR VOLUME 82 fl (80-97); MONOCYTES % (AUTO) 9.4 % (3-13); RED CELL DISTRIBUTION WIDTH 14.6 % (11.5-14.0); SEGMENTED NEUTROPHILS % (AUTO) 71.9 % (42-78); WHITE BLOOD COUNT 8.4 10^3/uL (4.0-10.5)
[2017-03-17 05:35] LABS: ANION GAP 13 (5-19); BLOOD UREA NITROGEN 15 mg/dL (7-20); CALCIUM 11.3 mg/dL (8.4-10.2); CARBON DIOXIDE 21 mmol/L (22-30); CHLORIDE 108 mmol/L (98-107); GLUCOSE 214 mg/dL (75-110); PHOSPHORUS 3.3 mg/dL (2.5-4.5); POTASSIUM 4.5 mmol/L (3.6-5.0); SODIUM 141.7 mmol/L (137-145)
[2017-03-17] MEDS: INSULIN LISPRO 100 UNIT/ML 3 ML VIAL SUBCUT PRN ×4 (08:58→23:29)
--- NOTE | 2017-03-17 09:53 | PROGRESS NOTE E ---
Progress Note NAME: JOSH VALERA : 1940 AGE: 76Y DATE: 03/17/2017 ROOM: 309 SUBJECTIVE: The patient is a 76-year-old female who was admitted with a large right breast mass and urinary tract infection. She has a history of diabetes and history of DVT in the past. She is doing better today. She had a biopsy of the breast mass and waiting for the results. No complaint. She had UTI, on IV antibiotics. OBJECTIVE: GENERAL: The patient is lying in bed, not in distress. VITAL SIGNS: Temperature 97.8 heart rate 65, blood pressure 147/56, respiratory rate 18, saturation 96% room air. HEENT: Head normocephalic, atraumatic. Pupils round, reactive to light and accommodation bilaterally. Extraocular movements intact. Ears: Tympanic membranes intact bilaterally. No discharge from the ear. No discharge from the nose. NECK: Supple, no increased JVD, no thyromegaly, no lymphadenopathy. CARDIOVASCULAR: Normal S1, S2. Regular rate and rhythm. No murmur, no gallops. RESPIRATORY: Lungs clear. ABDOMEN: Soft. Nontender. MUSCULOSKELETAL: No edema. NEUROLOGIC: Awake, alert. SKIN: No rash. LABORATORY DATA: White blood cell count 8.9, hemoglobin 10.4, hematocrit 31. Sodium 141, potassium 4.5, chloride 108, CO2 21. ASSESSMENT: 1. LARGE RIGHT BREAST MASS, STATUS POST BIOPSY. Results pending. 2. URINARY TRACT INFECTION. 3. DIABETES TYPE 2. 4. ESSENTIAL HYPERTENSION. 5. HYPERCALCEMIA. 6. ELEVATED LIVER ENZYMES. PLAN: We are waiting for biopsy. Continue IV antibiotics; she is on Cipro. Labs tomorrow. She is waiting also for fdc facility placement. MEDICAL NECESSITY: Needs IV antibiotics for UTI as well as waiting for biopsy, as she will need also placement. DICTATING PHYSICIAN: MYRTLE ELAM M.D. [id number] PHY#: [id number] ID: [id number] JOB#: [id number] ACCT: [id number] cc: >
[2017-03-17] MEDS: CIPROFLOXACIN HCL 500 MG TABLET PO SCH ×2 (10:29→23:29)
[2017-03-17] MEDS: MEGESTROL ACETATE SUSP 400 MG/10 ML UDCUP PO SCH (10:29)
[2017-03-17] MEDS: CHLORTHALIDONE 25 MG TABLET PO SCH (10:30)
[2017-03-17] MEDS: METOPROLOL SUCCINATE 50 MG TAB.SR.24H PO SCH ×2 (10:31→23:29)
[2017-03-17] MEDS: LISINOPRIL 10 MG TABLET PO SCH (10:31)
[2017-03-17] MEDS: POLYETHYLENE GLYCOL 3350 POWDER 17 GM/1 PACKET PO SCH (10:32)
[2017-03-17] MEDS: DOCUSATE SODIUM 100 MG CAPSULE PO SCH ×2 (10:32→17:02)
[2017-03-17] MEDS ORDERED: HYDROMORPHONE HCL INJ/PF 2 MG/ML AMPULE IV PRN (13:25)
[2017-03-17] MEDS: ERYTHROMYCIN 0.5% OPH OINTMENT 3.5 GM TUBE OD SCH (17:04)
[2017-03-17] MEDS: NYSTATIN CREAM 15 GM TP SCH (17:04)
[2017-03-17] MEDS: INSULIN GLARGINE,HUM.REC.ANLOG 300 UNIT/3 ML INSULN.PEN SUBCUT SCH (23:28)
[2017-03-18] MEDS: HYDRALAZINE HCL INJ/PF 20 MG/1 ML SDV IV PRN (05:38)
[2017-03-18] MEDS: INSULIN LISPRO 100 UNIT/ML 3 ML VIAL SUBCUT PRN ×4 (07:59→22:21)
[2017-03-18] MEDS ORDERED: AMLODIPINE BESYLATE 10 MG TABLET PO ONE (09:00)
--- NOTE | 2017-03-18 09:18 | PROGRESS NOTE E ---
Progress Note NAME: JOSH VALERA : 1940 AGE: 76Y DATE: 03/18/2017 ROOM: 309 SUBJECTIVE: The patient is a 76-year-old female who was admitted with large right breast mass and urinary tract infection. She had a history of diabetes and a history of DVT in the past. The patient is doing better today. She had a biopsy of the breast and the result has come back and this confirmed the breast cancer. The patient is confused today, but she has underlying dementia. No fever, no chills. OBJECTIVE: GENERAL: Patient lying in bed comfortable, not in distress. VITAL SIGNS: Blood pressure is 169/59, temperature 98.2, respiratory rate 20. HEENT: Head normocephalic, atraumatic. Pupils round, reactive to light and accommodation bilaterally. Extraocular movements intact. Ears: Tympanic membranes intact bilaterally. No discharge from the ears. No discharge from the nose. NECK: Supple. No increased JVD, no thyromegaly, no lymphadenopathy. CARDIOVASCULAR: Normal S1, S2. Regular rate and rhythm. No murmur. No gallop. RESPIRATORY: Lungs clear. ABDOMEN: Soft, nontender. MUSCULOSKELETAL: No edema. NEUROLOGICAL: Awake, alert. SKIN: No rash. LABORATORY: White blood count is 8.4, hemoglobin is 10.4, hematocrit 31. Sodium is 141, potassium is 4.5, creatinine 0.9. ASSESSMENT: 1. LARGE RIGHT BREAST MASS STATUS POST BIOPSY. RESULT SHOWED INVASIVE LOBULAR CARCINOMA OF THE BREAST. 2. URINARY TRACT INFECTION. 3. DIABETES TYPE 2. 4. HYPERTENSION, POORLY CONTROLLED. 5. HYPERCALCEMIA. 6. ELEVATED LIVER ENZYMES. PLAN: We are waiting for nursing placement. Continue IV fluids and IV antibiotics. Her blood pressure is poorly controlled. We are going to increase the lisinopril from 10 mg daily so it is lisinopril she is taking 40 mg. She is also on hydrochlorothiazide or chlorthalidone as well as will add Norvasc 10 mg daily. Oncology on board. MEDICAL NECESSITY: Needs IV fluids and IV antibiotics plus waiting for placement. DICTATING PHYSICIAN: MYRTLE ELAM M.D. [id number] PHY#: [id number] ID: [id number] JOB#: [id number] ACCT: [id number] cc: >
[2017-03-18 09:53] LABS: ABSOLUTE EOSINOPHILS # (AUTO) 0.1 10^3/uL (0.0-0.6); ABSOLUTE LYMPHOCYTES (AUTO) 1.5 10^3/uL (0.5-4.7); ABSOLUTE MONOCYTES (AUTO) 0.7 10^3/uL (0.1-1.4); ABSOLUTE NEUT (AUTO) 6.3 10^3/uL (1.7-8.2); BASOPHILS % (AUTO) 0.4 % (0-2); EOSINOPHILS % (AUTO) 1.5 % (0-6); HEMATOCRIT 32.3 % (36.0-47.0); HEMOGLOBIN 10.7 g/dL (12.0-15.5); HGB HCT DIFFERENCE -0.2; LYMPHOCYTES % (AUTO) 17.1 % (13-45); MEAN CORPUSCULAR HEMOGLOBIN 27.3 pg (27.0-33.4); MEAN CORPUSCULAR HGB CONC 33.3 g/dL (32.0-36.0); MEAN CORPUSCULAR VOLUME 82 fl (80-97); MONOCYTES % (AUTO) 8.3 % (3-13); RED BLOOD COUNT 3.94 10^6/uL (3.72-5.28); RED CELL DISTRIBUTION WIDTH 14.2 % (11.5-14.0); SEGMENTED NEUTROPHILS % (AUTO) 72.7 % (42-78); WHITE BLOOD COUNT 8.7 10^3/uL (4.0-10.5)
[2017-03-18 10:06] LABS: ALBUMIN 2.9 g/dL (3.5-5.0); ANION GAP 13 (5-19); BLOOD UREA NITROGEN 20 mg/dL (7-20); CALCIUM 11.2 mg/dL (8.4-10.2); CARBON DIOXIDE 22 mmol/L (22-30); CHLORIDE 108 mmol/L (98-107); CREATININE RESULT 0.89 mg/dL (0.52-1.25); GLUCOSE 240 mg/dL (75-110); PHOSPHORUS 3.1 mg/dL (2.5-4.5); POTASSIUM 4.3 mmol/L (3.6-5.0)
[2017-03-18] MEDS: INSULIN GLARGINE,HUM.REC.ANLOG 300 UNIT/3 ML INSULN.PEN SUBCUT SCH ×2 (10:34→22:21)
[2017-03-18] MEDS: LISINOPRIL 10 MG TABLET PO SCH (10:35)
[2017-03-18] MEDS: DOCUSATE SODIUM 100 MG CAPSULE PO SCH ×2 (10:35→18:47)
[2017-03-18] MEDS: METOPROLOL SUCCINATE 50 MG TAB.SR.24H PO SCH ×2 (10:36→22:22)
[2017-03-18] MEDS: CIPROFLOXACIN HCL 500 MG TABLET PO SCH ×2 (10:37→22:21)
[2017-03-18] MEDS: CHLORTHALIDONE 25 MG TABLET PO SCH (10:38)
[2017-03-18] MEDS: MEGESTROL ACETATE SUSP 400 MG/10 ML UDCUP PO SCH (10:38)
[2017-03-18] MEDS: ERYTHROMYCIN 0.5% OPH OINTMENT 3.5 GM TUBE OD SCH ×2 (10:39→18:48)
[2017-03-18] MEDS: NYSTATIN CREAM 15 GM TP SCH ×2 (10:40→18:48)
[2017-03-18] MEDS: POLYETHYLENE GLYCOL 3350 POWDER 17 GM/1 PACKET PO SCH (10:40)
[2017-03-19 06:23] LABS: ABSOLUTE BASOPHILS # (AUTO) 0.1 10^3/uL (0.0-0.2); ABSOLUTE EOSINOPHILS # (AUTO) 0.1 10^3/uL (0.0-0.6); ABSOLUTE LYMPHOCYTES (AUTO) 1.6 10^3/uL (0.5-4.7); ABSOLUTE MONOCYTES (AUTO) 0.9 10^3/uL (0.1-1.4); ABSOLUTE NEUT (AUTO) 7.6 10^3/uL (1.7-8.2); BASOPHILS % (AUTO) 0.9 % (0-2); EOSINOPHILS % (AUTO) 1.3 % (0-6); HEMATOCRIT 30.7 % (36.0-47.0); HEMOGLOBIN 10.3 g/dL (12.0-15.5); HGB HCT DIFFERENCE 0.2; MEAN CORPUSCULAR HEMOGLOBIN 27.4 pg (27.0-33.4); MEAN CORPUSCULAR HGB CONC 33.5 g/dL (32.0-36.0); MEAN CORPUSCULAR VOLUME 82 fl (80-97); MONOCYTES % (AUTO) 9.1 % (3-13); RED BLOOD COUNT 3.76 10^6/uL (3.72-5.28); RED CELL DISTRIBUTION WIDTH 14.9 % (11.5-14.0); SEGMENTED NEUTROPHILS % (AUTO) 73.7 % (42-78); WHITE BLOOD COUNT 10.4 10^3/uL (4.0-10.5)
[2017-03-19 06:46] LABS: ALBUMIN 3.1 g/dL (3.5-5.0); ANION GAP 13 (5-19); BLOOD UREA NITROGEN 21 mg/dL (7-20); CALCIUM 11.4 mg/dL (8.4-10.2); CARBON DIOXIDE 19 mmol/L (22-30); CHLORIDE 110 mmol/L (98-107); CREATININE RESULT 0.91 mg/dL (0.52-1.25); GLUCOSE 165 mg/dL (75-110); PHOSPHORUS 3.7 mg/dL (2.5-4.5)
[2017-03-19] MEDS: INSULIN LISPRO 100 UNIT/ML 3 ML VIAL SUBCUT PRN ×2 (09:37→11:58)
[2017-03-19] MEDS: INSULIN GLARGINE,HUM.REC.ANLOG 300 UNIT/3 ML INSULN.PEN SUBCUT SCH ×2 (09:38→22:52)
[2017-03-19] MEDS: CIPROFLOXACIN HCL 500 MG TABLET PO SCH ×2 (09:39→22:52)
[2017-03-19] MEDS: POLYETHYLENE GLYCOL 3350 POWDER 17 GM/1 PACKET PO SCH (09:39)
[2017-03-19] MEDS: MEGESTROL ACETATE SUSP 400 MG/10 ML UDCUP PO SCH (09:39)
[2017-03-19] MEDS: AMLODIPINE BESYLATE 10 MG TABLET PO SCH (09:40)
[2017-03-19] MEDS: METOPROLOL SUCCINATE 50 MG TAB.SR.24H PO SCH ×2 (09:41→22:52)
[2017-03-19] MEDS: DOCUSATE SODIUM 100 MG CAPSULE PO SCH ×2 (09:41→17:16)
[2017-03-19] MEDS: CHLORTHALIDONE 25 MG TABLET PO SCH (09:42)
[2017-03-19] MEDS: LISINOPRIL 10 MG TABLET PO SCH (09:42)
[2017-03-19] MEDS: NYSTATIN CREAM 15 GM TP SCH ×2 (09:47→17:17)
[2017-03-19] MEDS: ERYTHROMYCIN 0.5% OPH OINTMENT 3.5 GM TUBE OD SCH ×2 (09:47→17:18)
[2017-03-19] MEDS ORDERED: ZOLEDRONIC ACID 4 MG/100 ML RTU IV STA (10:19)
[2017-03-19] MEDS ORDERED: BISACODYL 10 MG SUPP.RECT PR ONE (11:00)
[2017-03-19] MEDS ORDERED: CALCITONIN,SALMON,SYNTHETIC 400 UNIT/2 ML VIAL IM ONE (11:30)
[2017-03-19] MEDS ORDERED: ZOLEDRONIC ACID/MANNITOL/WATER 4 MG/100 ML INFUS..BTL IV ONE (11:30)
[2017-03-19] MEDS: NORMAL SALINE 1000 ML 1,000 ML IV PRN ×2 (11:53→23:19)
--- NOTE | 2017-03-19 12:11 | PDOC PROGRESS REPORT ---
Subjective Progress Note for:: 03/19/17 Subjective:: F/U: hypercalcemia, UTI, breat mass she has no complaints to me this morning but nursing reports she was confused at times, thinks she is at a hotel and not sure why she came. she will reorient for a time but then confused again. she is in fact a little fuzzy on the details of her stay and therefore not a reliable historian. nursing reports she hasn't had a BM in last 6 days either. review of the record, she has undergone breast Bx but I don't see path report yet. I do not see treatment of her calcium levels with calcitonin or bisphosphanates as yet. ROS: Unreliable due to her mental state Physical Exam Vital Signs: Temp Pulse Resp BP Pulse Ox 97.8 F 87 18 136/69 H 95 03/19/17 08:00 03/19/17 08:00 03/19/17 08:00 03/19/17 08:00 03/19/17 08:00 Intake & Output 03/18/17 03/19/17 03/20/17 06:59 06:59 06:59 Intake Total 367 1018 Balance 367 1018 Weight 75.1 kg 73.4 kg General appearance: PRESENT: no acute distress, cooperative, well-developed Head exam: PRESENT: atraumatic Eye exam: PRESENT: EOMI. ABSENT: conjunctival injection Mouth exam: PRESENT: moist, other - thin white coating on the tongue Neck exam: PRESENT: full ROM. ABSENT: lymphadenopathy Respiratory exam: PRESENT: clear to auscultation zane, unlabored. ABSENT: accessory muscle use Cardiovascular exam: PRESENT: RRR. ABSENT: systolic murmur GI/Abdominal exam: PRESENT: hypoactive bowel sounds, soft. ABSENT: ascites, tenderness Extremities exam: ABSENT: pedal edema, tenderness Musculoskeletal exam: PRESENT: full ROM Neurological exam: PRESENT: alert, awake, oriented to person, oriented to time, reflexes normal - patella; no clonus or asterixis Psychiatric exam: ABSENT: agitated, anxious Focused psych exam: ABSENT: pressured speech, psychomotor agitation Skin exam: PRESENT: other - right breast encompassed with rock hard mass in its entirety, overlying skin changes of hyperpigmentation, excoriations or macerations evident. no nipple discharge; probable LAD in Rt axilla Results Laboratory Results: 03/19/17 06:10 03/19/17 06:10 03/19/17 03/19/17 06:10 06:10 WBC 10.4 RBC 3.76 Hgb 10.3 L Hct 30.7 L MCV 82 MCH 27.4 MCHC 33.5 RDW 14.9 H Plt Count 268 Seg Neutrophils % 73.7 Lymphocytes % 15.0 Monocytes % 9.1 Eosinophils % 1.3 Basophils % 0.9 Absolute Neutrophils 7.6 Absolute Lymphocytes 1.6 Absolute Monocytes 0.9 Absolute Eosinophils 0.1 Absolute Basophils 0.1 Sodium 142.0 Potassium 4.0 Chloride 110 H Carbon Dioxide 19 L Anion Gap 13 BUN 21 H Creatinine 0.91 Est GFR ( Amer) > 60 Est GFR (Non-Af Amer) > 60 Glucose 165 H Calcium 11.4 H Phosphorus 3.7 Albumin 3.1 L 03/10/17 03/11/17 04:19 04:18 Creatine Kinase 121 CK-MB (CK-2) 0.90 Impressions: Abdomen Ultrasound 03/10/17 00:00 IMPRESSION: FATTY LIVER. CHOLELITHIASIS. PANCREAS PARTIALLY OR COMPLETELY OBSCURED. OTHERWISE NORMAL RIGHT UPPER QUADRANT ULTRASOUND. Abdomen/Pelvis CT 03/13/17 00:00 IMPRESSION: 1. Right breast mass. 2. 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 3. Questionable thickening the posterior bladder wall. 4. Endometrial canal is prominent for patient age. Pelvic ultrasound is recommended. 5. The left ilium is somewhat heterogeneous. Metastatic disease cannot be excluded. Chest CT 03/13/17 00:00 IMPRESSION: Large right breast mass with axillary adenopathy marked skin thickening highly concerning for neoplasm. No pulmonary or osseous metastases are seen in the chest. Assessment & Plan - Diagnosis (1) Hypercalcemia Is this a current diagnosis for this admission?: Yes Plan: she is symptomatic with what is likely hypercalcemia of malignancy so I will treat with trial dose of calcitonin and if serum calcium responds then will continue for 48 hrs; give dose of zoledronic acid and short course of IVFs. repeat CA levels (2) Lobular adenocarcinoma Qualifiers: Laterality: right Qualified Code(s): C50.911 - Malignant neoplasm of unspecified site of right female breast Is this a current diagnosis for this admission?: Yes Plan: will d/w dr tim in am and decide on treatment plan (3) Urinary tract infection Qualifiers: Urinary tract infection type: acute cystitis Hematuria presence: without hematuria Qualified Code(s): N30.00 - Acute cystitis without hematuria Is this a current diagnosis for this admission?: Yes Plan: polymicrobial with ecoli and pseudomonas both reportedly susc to cipro. continue 10d course for complicated cystitis/UTI (4) Diabetes mellitus type 2 in nonobese Is this a current diagnosis for this admission?: Yes Plan: not well controlled on current regimen; increase lantus and monitor for effect (5) Essential hypertension Is this a current diagnosis for this admission?: Yes Plan: reasonably well controlled. hold diuretic while we address her calcium levels (6) Constipation Qualifiers: Constipation type: other constipation type Qualified Code(s): K59.09 - Other constipation Is this a current diagnosis for this admission?: Yes Plan: likely 2/2 hypercalcemia; will address as above, bowel regimen - Time Time Spent with patient: 25-34 minutes Medications reviewed and adjusted accordingly: Yes
[2017-03-19] MEDS: NYSTATIN 500000 UNIT/5 ML UDCUP PO SCH ×3 (14:15→22:52)
[2017-03-19 16:56] LABS: ANION GAP 14 (5-19); BLOOD UREA NITROGEN 21 mg/dL (7-20); CALCIUM 10.4 mg/dL (8.4-10.2); CARBON DIOXIDE 18 mmol/L (22-30); CHLORIDE 110 mmol/L (98-107); GLUCOSE 162 mg/dL (75-110); SODIUM 142.3 mmol/L (137-145)
[2017-03-20] MEDS ORDERED: ACETAMINOPHEN 650 MG SUPP.RECT PR ONE ×2 (02:09→02:15)
[2017-03-20] MEDS ORDERED: ACETAMINOPHEN 325 MG TABLET PO ONE (02:15)
[2017-03-20 05:52] LABS: ANION GAP 14 (5-19); BLOOD UREA NITROGEN 22 mg/dL (7-20); CALCIUM 9.4 mg/dL (8.4-10.2); CARBON DIOXIDE 17 mmol/L (22-30); CHLORIDE 113 mmol/L (98-107); CREATININE RESULT 0.99 mg/dL (0.52-1.25); GLUCOSE 153 mg/dL (75-110); POTASSIUM 4.2 mmol/L (3.6-5.0); SODIUM 144.1 mmol/L (137-145)
--- NOTE | 2017-03-20 08:07 | RADIOLOGY REPORT (SQ) ---
EXAM DESCRIPTION: CHEST SINGLE VIEW COMPLETED DATE/TIME: 03/20/2017 7:50 am REASON FOR STUDY: fevers COMPARISON: 03/13/2017 CT chest. NUMBER OF VIEWS: One view. TECHNIQUE: Single frontal radiographic view of the chest acquired. LIMITATIONS: None. FINDINGS: LUNGS AND PLEURA: Generally clear. Mild suspected subsegmental atelectasis left base. MEDIASTINUM AND HILAR STRUCTURES: No masses. Contour normal. HEART AND VASCULAR STRUCTURES: Heart normal in size. Normal vasculature. BONES: No acute findings. HARDWARE: None in the chest. OTHER: No other significant finding. IMPRESSION: NO SIGNIFICANT RADIOGRAPHIC FINDING IN THE CHEST. TECHNICAL DOCUMENTATION: JOB ID: [id number] [employer]- All Rights Reserved
[2017-03-20 08:29] LABS: HEMATOCRIT 30.8 % (36.0-47.0); HEMOGLOBIN 10.1 g/dL (12.0-15.5); HGB HCT DIFFERENCE -0.5; MEAN CORPUSCULAR HEMOGLOBIN 26.5 pg (27.0-33.4); MEAN CORPUSCULAR HGB CONC 32.7 g/dL (32.0-36.0); MEAN CORPUSCULAR VOLUME 81 fl (80-97); RED BLOOD COUNT 3.79 10^6/uL (3.72-5.28); RED CELL DISTRIBUTION WIDTH 14.6 % (11.5-14.0); WHITE BLOOD COUNT 10.5 10^3/uL (4.0-10.5)
[2017-03-20 09:02] LABS: ABSOLUTE EOSINOPHILS# (MANUAL) 0.1 10^3/uL (0.0-0.6); BASOPHILS % (MANUAL) 0 % (0-2); EOSINOPHILS % (MANUAL) 1 % (0-6); LYMPHOCYTES % (MANUAL) 1 % (13-45); TOTAL CELLS COUNTED 100
[2017-03-20 09:04] LABS: HYPOCHROMASIA SLIGHT; OVALOCYTES 1+; POIKILOCYTOSIS 1+; ROULEAUX SLIGHT; SCHISTOCYTES SLIGHT; TOXIC GRANULATION SLIGHT
[2017-03-20] MEDS: NORMAL SALINE 1000 ML 1,000 ML IV PRN ×2 (10:02→21:54)
[2017-03-20] MEDS: NYSTATIN 500000 UNIT/5 ML UDCUP PO SCH ×4 (10:03→21:56)
[2017-03-20] MEDS: MEGESTROL ACETATE SUSP 400 MG/10 ML UDCUP PO SCH (10:03)
[2017-03-20] MEDS: POLYETHYLENE GLYCOL 3350 POWDER 17 GM/1 PACKET PO SCH (10:03)
[2017-03-20] MEDS: AMLODIPINE BESYLATE 10 MG TABLET PO SCH (10:04)
[2017-03-20] MEDS: CIPROFLOXACIN HCL 500 MG TABLET PO SCH (10:04)
[2017-03-20] MEDS: DOCUSATE SODIUM 100 MG CAPSULE PO SCH ×2 (10:04→17:45)
[2017-03-20] MEDS: LISINOPRIL 10 MG TABLET PO SCH (10:05)
[2017-03-20] MEDS: NYSTATIN CREAM 15 GM TP SCH ×2 (10:05→17:44)
[2017-03-20] MEDS: METOPROLOL SUCCINATE 50 MG TAB.SR.24H PO SCH ×2 (10:05→21:56)
[2017-03-20] MEDS: ERYTHROMYCIN 0.5% OPH OINTMENT 3.5 GM TUBE OD SCH ×2 (10:06→17:44)
[2017-03-20] MEDS: INSULIN GLARGINE,HUM.REC.ANLOG 300 UNIT/3 ML INSULN.PEN SUBCUT SCH ×2 (10:06→21:56)
[2017-03-20] MEDS ORDERED: VANCOMYCIN HCL 0 MG in DEXTROSE 5%-WATER 250 ML IV NR (10:15)
--- NOTE | 2017-03-20 10:46 | PDOC PROGRESS REPORT ---
Subjective Progress Note for:: 03/20/17 Subjective:: F/U: hypercalcemia, UTI, breast mass, new fevers she complaints of not understanding why she is in the hospital and nursing reports she worsening confusion this morning. no recollection of where she is or why. she will reorient for a time but then confused again. She does not remember the breast biopsy. review of the record, she has undergone breast Bx path reports lobular carcinoma. I began treatment of her calcium levels with calcitonin and bisphosphanates with good results, unfortunately no change or improvement in her mental state as yet. Overnight she developed a temperature to 101.4. ROS: Unreliable due to her mental state Physical Exam Vital Signs: Temp Pulse Resp BP Pulse Ox 97.6 F 70 16 122/53 L 100 03/20/17 07:55 03/20/17 07:55 03/20/17 07:55 03/20/17 07:55 03/20/17 07:55 Intake & Output 03/19/17 03/20/17 03/21/17 06:59 06:59 06:59 Intake Total 1018 2496 Balance 1018 2496 Weight 73.4 kg 75.1 kg General appearance: PRESENT: no acute distress, cooperative, well-developed, confused Head exam: PRESENT: atraumatic Eye exam: PRESENT: EOMI. ABSENT: conjunctival injection Mouth exam: PRESENT: moist, other - thin white coating on the tongue persists Neck exam: PRESENT: full ROM, Nontender Respiratory exam: PRESENT: clear to auscultation zane, unlabored. ABSENT: accessory muscle use Cardiovascular exam: PRESENT: RRR. ABSENT: systolic murmur GI/Abdominal exam: PRESENT: hypoactive bowel sounds, soft, nontender ABSENT: ascites, tenderness Extremities exam: ABSENT: pedal edema, tenderness Musculoskeletal exam: PRESENT: full ROM Neurological exam: PRESENT: alert, awake, oriented to person only, reflexes normal - patella; no clonus or asterixis Psychiatric exam: ABSENT: agitated, anxious Focused psych exam: ABSENT: pressured speech, psychomotor agitation Skin exam: PRESENT: other - right breast encompassed with rock hard mass in its entirety, overlying skin changes of hyperpigmentation, excoriations or macerations evident. no nipple discharge; probable LAD in Rt axilla -today has increased erythema and feels hot to the touch when compared to yesterday Results Laboratory Results: 03/20/17 08:07 03/20/17 04:32 03/19/17 03/19/17 03/20/17 11:37 16:19 04:32 WBC RBC Hgb Hct MCV MCH MCHC RDW Plt Count Seg Neutrophils % Lymphocytes % Monocytes % Eosinophils % Basophils % Absolute Neutrophils Absolute Lymphocytes Absolute Monocytes Absolute Eosinophils Absolute Basophils Sodium 142.3 144.1 Potassium 4.0 4.2 Chloride 110 H 113 H Carbon Dioxide 18 L 17 L Anion Gap 14 14 BUN 21 H 22 H Creatinine 0.90 0.99 Est GFR ( Amer) > 60 > 60 Est GFR (Non-Af Amer) > 60 54 L Glucose 162 H 153 H Calcium 10.4 H 9.4 PTH Intact 12.2 03/20/17 08:07 WBC 10.5 RBC 3.79 Hgb 10.1 L Hct 30.8 L MCV 81 MCH 26.5 L MCHC 32.7 RDW 14.6 H Plt Count 226 Seg Neutrophils % Not Reportable Lymphocytes % Not Reportable Monocytes % Not Reportable Eosinophils % Not Reportable Basophils % Not Reportable Absolute Neutrophils Not Reportable Absolute Lymphocytes Not Reportable Absolute Monocytes Not Reportable Absolute Eosinophils Not Reportable Absolute Basophils Not Reportable Sodium Potassium Chloride Carbon Dioxide Anion Gap BUN Creatinine Est GFR ( Amer) Est GFR (Non-Af Amer) Glucose Calcium PTH Intact 03/10/17 03/11/17 04:19 04:18 Creatine Kinase 121 CK-MB (CK-2) 0.90 Impressions: Abdomen Ultrasound 03/10/17 00:00 IMPRESSION: FATTY LIVER. CHOLELITHIASIS. PANCREAS PARTIALLY OR COMPLETELY OBSCURED. OTHERWISE NORMAL RIGHT UPPER QUADRANT ULTRASOUND. Abdomen/Pelvis CT 03/13/17 00:00 IMPRESSION: 1. Right breast mass. 2. 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 3. Questionable thickening the posterior bladder wall. 4. Endometrial canal is prominent for patient age. Pelvic ultrasound is recommended. 5. The left ilium is somewhat heterogeneous. Metastatic disease cannot be excluded. Chest CT 03/13/17 00:00 IMPRESSION: Large right breast mass with axillary adenopathy marked skin thickening highly concerning for neoplasm. No pulmonary or osseous metastases are seen in the chest. Chest X-Ray 03/20/17 07:22 IMPRESSION: NO SIGNIFICANT RADIOGRAPHIC FINDING IN THE CHEST. Status: Image reviewed by me - No acute cardiopulmonary disease that I can see Assessment & Plan - Diagnosis (1) Cellulitis Qualifiers: Site of cellulitis: other site Qualified Code(s): L03.818 - Cellulitis of other sites Is this a current diagnosis for this admission?: Yes Plan: I suspect a developing cellulitis around the biopsy site or the mass itself in the right breast likely accounting for her fevers and worsening confusion overnight. Repeat chest x-ray is unrevealing for pneumonia or other cardiopulmonary disease. Blood cultures are drawn and pending. Repeat urinalysis is pending. We will broaden her antibiotics from Cipro being used to treat the urinary tract infection to cefepime and vancomycin, await culture results to narrow spectrum. Follow-up labs in the morning. (2) Hypercalcemia Is this a current diagnosis for this admission?: Yes Plan: Status post IV zoledronic acid. Calcium responded nicely to calcitonin and a single bolus IV fluids, will continue also determine for 48 hours. Repeat labs in a.m. (3) Lobular adenocarcinoma Qualifiers: Laterality: right Qualified Code(s): C50.911 - Malignant neoplasm of unspecified site of right female breast Is this a current diagnosis for this admission?: Yes Plan: Follow-up with dr tim in am and decide on treatment plan (4) Urinary tract infection Qualifiers: Urinary tract infection type: acute cystitis Hematuria presence: without hematuria Qualified Code(s): N30.00 - Acute cystitis without hematuria Is this a current diagnosis for this admission?: Yes Plan: polymicrobial with ecoli and pseudomonas both reportedly susc to cipro. Needs a full 10d course for complicated cystitis/UTI and antibiotics changed for reasons noted above. (5) Diabetes mellitus type 2 in nonobese Is this a current diagnosis for this admission?: Yes (6) Essential hypertension Is this a current diagnosis for this admission?: Yes (7) Constipation Qualifiers: Constipation type: other constipation type Qualified Code(s): K59.09 - Other constipation Is this a current diagnosis for this admission?: Yes - Time Time Spent with patient: 35 or more minutes Medications reviewed and adjusted accordingly: Yes - Plan Summary Plan Summary: Fever developing cellulitis is an unfortunate turn of events and will prolong need for hospitalization. Were it not for skin changes noted today, I could have attributed the fever to an acute phase reaction to the zoledronic acid which occurs in 7-18% of females.
[2017-03-20 10:53] LABS: APPEARANCE,URINE SLIGHTLY-CLOUDY; BILIRUBIN,URINE NEGATIVE (NEGATIVE); GLUCOSE, URINE NEGATIVE (NEGATIVE); KETONES,URINE NEGATIVE (NEGATIVE); LEUKOCYTE ESTERASE,URINE MODERATE (NEGATIVE); NITRITE,URINE NEGATIVE (NEGATIVE); PROTEIN,URINE 30 mg/dL (NEGATIVE); URINE SPECIFIC GRAVITY 1.015; UROBILINOGEN,URINE NEGATIVE mg/dL (<2.0)
[2017-03-20] MEDS: CEFEPIME 1 GM/D5W RTU 1 GM/50 ML RTUPB IV SCH (12:21)
[2017-03-20] MEDS: VANCOMYCIN HCL 750 MG in DEXTROSE 5%-WATER 250 ML IV SCH (13:54)
[2017-03-20] MEDS: INSULIN LISPRO 100 UNIT/ML 3 ML VIAL SUBCUT PRN ×2 (13:57→18:16)
[2017-03-20] MEDS ORDERED: PROCHLORPERAZINE MALEATE 5 MG TABLET PO PRN (13:59)
[2017-03-20] MEDS ORDERED: LORAZEPAM 0.5 MG TABLET PO PRN (14:00)
--- NOTE | 2017-03-20 16:23 | PROGRESS NOTE E ---
Progress Note NAME: JOSH VALERA : 1940 AGE: 76Y DATE: 03/20/2017 ROOM: 309 SUBJECTIVE: The patient was seen at the bedside today. She was in bed and her daughter was present. I reviewed with her the results of the right breast biopsy, I explained that it is consistent with invasive lobular carcinoma, she most likely has an advanced breast cancer, especially given the findings of axillary adenopathy as well as the hypercalcemia with probable bone mets. She had a fever overnight. She had received Zometa. She has also been started on IV antibiotics. She is presently afebrile. She underwent some physical therapy today. LABORATORY DATA: White count is 10.5, hemoglobin 10.1, platelet count is 226. Sodium 144, calcium 9.4. PATHOLOGY REPORT: Right breast biopsy; invasive lobular carcinoma, ER, NH, HER2/[facility] pending. IMPRESSION AND PLAN: The patient is a 76-year-old woman who now has breast cancer. Immunostains pending. I discussed with her, her diagnosis and overall prognosis. I recommend starting chemotherapy with Taxotere and Cytoxan, both given at a reduced dose. I think that this would help to start shrinking the breast cancer and hopefully give her some comfort, it will also with the hypercalcemia. I explained that metastatic breast cancer was a treatable cancer. I will start her on a reduced dose with *------* status. She will require Neulasta following the treatment to prevent neutropenic fever. I reviewed the side effects of the whole chemotherapy regimen to include the risks; falls, hair loss, nausea and vomiting, pancytopenia, risk for neutropenic fever, anemia or thrombocytopenia that might necessitate the use the of fluid factors or blood transfusion, sometimes tear duct stenosis for which the right eyedrops will be prescribed to help prevent. This is a regimen given every 3 weeks, hopefully following this treatment she will be stable enough to be discharged. I will plan on seeing her as an outpatient in about 3 weeks if she otherwise remains clinically stable. I thank you for this consultation and allowing me to part of her care. DICTATING PHYSICIAN: BRYANT ALBRIGHT M.D. [id number] PHY#: [id number] ID: [id number] JOB#: [id number] ACCT: [id number] cc: >
[2017-03-20] MEDS: PREDNISOLONE ACETATE 1% OPH SUSP 5 ML OU SCH (17:43)
[2017-03-20] MEDS: CALCITONIN,SALMON,SYNTHETIC 400 UNIT/2 ML VIAL IM SCH (17:46)
[2017-03-21] MEDS: CEFEPIME 1 GM/D5W RTU 1 GM/50 ML RTUPB IV SCH ×3 (00:09→23:45)
[2017-03-21] MEDS: VANCOMYCIN HCL 750 MG in DEXTROSE 5%-WATER 250 ML IV SCH ×2 (00:47→13:05)
[2017-03-21] MEDS ORDERED: LORAZEPAM 1 MG TABLET PO PRN (05:00)
[2017-03-21] MEDS ORDERED: ONDANSETRON HCL/PF 16 MG, DEXAMETHASONE SOD PHOSPHATE 20 MG in NORMAL SALINE 50 ML IV PRN (05:00)
[2017-03-21] MEDS ORDERED: NORMAL SALINE 250 ML IV PRN (05:00)
[2017-03-21] MEDS ORDERED: NORMAL SALINE IV PRN ×2 (05:00)
[2017-03-21] MEDS ORDERED: DOCETAXEL IV PRN (05:00)
[2017-03-21] MEDS ORDERED: CYCLOPHOSPHAMIDE IV PRN (05:00)
[2017-03-21 05:25] LABS: ABSOLUTE EOSINOPHILS # (AUTO) 0.1 10^3/uL (0.0-0.6); ABSOLUTE LYMPHOCYTES (AUTO) 0.6 10^3/uL (0.5-4.7); ABSOLUTE MONOCYTES (AUTO) 0.4 10^3/uL (0.1-1.4); BASOPHILS % (AUTO) 0.5 % (0-2); EOSINOPHILS % (AUTO) 1.2 % (0-6); HEMATOCRIT 28.2 % (36.0-47.0); HEMOGLOBIN 9.4 g/dL (12.0-15.5); LYMPHOCYTES % (AUTO) 7.1 % (13-45); MEAN CORPUSCULAR HEMOGLOBIN 27.2 pg (27.0-33.4); MEAN CORPUSCULAR HGB CONC 33.5 g/dL (32.0-36.0); MEAN CORPUSCULAR VOLUME 81 fl (80-97); MONOCYTES % (AUTO) 5.4 % (3-13); RED BLOOD COUNT 3.47 10^6/uL (3.72-5.28); RED CELL DISTRIBUTION WIDTH 14.5 % (11.5-14.0); SEGMENTED NEUTROPHILS % (AUTO) 85.8 % (42-78); WHITE BLOOD COUNT 8.1 10^3/uL (4.0-10.5)
[2017-03-21 05:53] LABS: ALANINE AMINOTRANSFERASE 128 U/L (9-52); ALBUMIN 2.7 g/dL (3.5-5.0); ALKALINE PHOSPHATASE 176 U/L (38-126); ANION GAP 12 (5-19); ASPARTATE AMINO TRANSFERASE 84 U/L (14-36); BILIRUBIN,DIRECT 0.3 mg/dL (0.0-0.4); BILIRUBIN,TOTAL 0.5 mg/dL (0.2-1.3); BLOOD UREA NITROGEN 19 mg/dL (7-20); CALCIUM 8.2 mg/dL (8.4-10.2); CARBON DIOXIDE 16 mmol/L (22-30); CHLORIDE 113 mmol/L (98-107); GLUCOSE 151 mg/dL (75-110); POTASSIUM 4.1 mmol/L (3.6-5.0); SODIUM 141.4 mmol/L (137-145); TOTAL PROTEIN 5.3 g/dL (6.3-8.2)
[2017-03-21] MEDS: INSULIN LISPRO 100 UNIT/ML 3 ML VIAL SUBCUT PRN ×4 (08:05→21:48)
[2017-03-21] MEDS: POLYETHYLENE GLYCOL 3350 POWDER 17 GM/1 PACKET PO SCH (09:20)
[2017-03-21] MEDS: LISINOPRIL 10 MG TABLET PO SCH (09:21)
[2017-03-21] MEDS: DOCUSATE SODIUM 100 MG CAPSULE PO SCH ×2 (09:22→17:10)
[2017-03-21] MEDS: AMLODIPINE BESYLATE 10 MG TABLET PO SCH (09:22)
[2017-03-21] MEDS: INSULIN GLARGINE,HUM.REC.ANLOG 300 UNIT/3 ML INSULN.PEN SUBCUT SCH ×2 (09:22→21:48)
[2017-03-21] MEDS: PREDNISOLONE ACETATE 1% OPH SUSP 5 ML OU SCH ×2 (09:23→17:10)
[2017-03-21] MEDS: NYSTATIN 500000 UNIT/5 ML UDCUP PO SCH ×4 (09:23→21:50)
[2017-03-21] MEDS: METOPROLOL SUCCINATE 50 MG TAB.SR.24H PO SCH ×2 (09:23→21:50)
--- NOTE | 2017-03-21 09:23 | RADIOLOGY REPORT (SQ) ---
EXAM DESCRIPTION: NM WHOLE BODY BONE SCAN COMPLETED DATE/TIME: 03/13/2017 2:48 pm REASON FOR STUDY: metastsis COMPARISON: CT angio chest 07/05/2010 CT abdomen pelvis 03/13/2017 RADIONUCLIDE AND DOSE: 20.7 millicuries Tc99m MDP. The route of agent administration: Intravenous. ADDITIONAL DRUGS AND DOSES: None. TECHNIQUE: Routine delayed images at 3 hours post radionuclide injection acquired of the bony skelet on including anterior and posterior whole-body projections and additional focused images as needed. LIMITATIONS: None. FINDINGS: BONES: Increased uptake right scapula, left anterior 1st rib, bilateral anterior 2nd ribs, left anterior 3rd and 4th ribs, right posterior 12th rib. Increased uptake in the T10 vertebral body correlates with lytic area on CT. Increased uptake left sacrum worrisome for metastatic disease. KIDNEYS: Symmetric excretion without obstruction. OTHER: No other significant finding. IMPRESSION: Multiple foci of increased uptake worrisome for bony metastatic disease COMMENT: Quality measure 147: Current bone scan is compared with any available plain radiographs, p rior bone scans, and CT/MRI. TECHNICAL DOCUMENTATION: JOB ID: [id number] [employer]- All Rights Reserved
[2017-03-21] MEDS: MEGESTROL ACETATE SUSP 400 MG/10 ML UDCUP PO SCH (09:24)
[2017-03-21] MEDS: NYSTATIN CREAM 15 GM TP SCH ×2 (09:30→17:11)
[2017-03-21] MEDS: CALCITONIN,SALMON,SYNTHETIC 400 UNIT/2 ML VIAL IM SCH (11:01)
[2017-03-21] MEDS: ERYTHROMYCIN 0.5% OPH OINTMENT 3.5 GM TUBE OD SCH ×2 (11:13→17:10)
[2017-03-21] MEDS: ONDANSETRON HCL 8 MG TABLET PO SCH ×2 (13:05→21:51)
[2017-03-21] MEDS: NORMAL SALINE 1000 ML 1,000 ML IV PRN (13:05)
--- NOTE | 2017-03-21 17:18 | PDOC PROGRESS REPORT ---
Subjective Progress Note for:: 03/21/17 Subjective:: Patient reports feeling considerably better today. She does not think she is having any confusion. Her daughter agrees and is by the bedside. Patient is not having chest pain, she reports no pain at all. She is not having any shortness of breath, no nausea vomiting or abdominal pain. No fevers or chills today. She did have a fever several days ago and thinks that after antibiotics were started the fever dissipated. She is receiving her first round of chemo during our interaction. Reason For Visit: UTI, HYPERCALCEMIA, new diagnosis left breast cancer Physical Exam Vital Signs: Temp Pulse Resp BP Pulse Ox 98.5 F 58 L 20 114/43 L 95 03/21/17 12:44 03/21/17 14:00 03/21/17 12:44 03/21/17 12:44 03/21/17 12:44 Intake & Output 03/20/17 03/21/17 03/22/17 06:59 06:59 06:59 Intake Total 2496 3254 560 Balance 2496 3254 560 Weight 75.1 kg 74.8 kg General appearance: PRESENT: no acute distress, cooperative Head exam: PRESENT: atraumatic, normocephalic Eye exam: ABSENT: scleral icterus Ear exam: PRESENT: normal external ear exam Mouth exam: PRESENT: moist Neck exam: ABSENT: lymphadenopathy Respiratory exam: PRESENT: clear to auscultation zane. ABSENT: rales, rhonchi, wheezes Cardiovascular exam: PRESENT: RRR. ABSENT: diastolic murmur, rubs, systolic murmur GI/Abdominal exam: PRESENT: normal bowel sounds, soft. ABSENT: distended, tenderness Extremities exam: ABSENT: pedal edema Neurological exam: PRESENT: alert, awake, oriented to person, oriented to place , oriented to time, oriented to situation Psychiatric exam: PRESENT: appropriate affect Skin exam: PRESENT: dry, warm Results Laboratory Results: 03/21/17 04:40 03/21/17 04:40 03/21/17 03/21/17 04:40 04:40 WBC 8.1 RBC 3.47 L Hgb 9.4 L Hct 28.2 L MCV 81 MCH 27.2 MCHC 33.5 RDW 14.5 H Plt Count 226 Seg Neutrophils % 85.8 H Lymphocytes % 7.1 L Monocytes % 5.4 Eosinophils % 1.2 Basophils % 0.5 Absolute Neutrophils 7.0 Absolute Lymphocytes 0.6 Absolute Monocytes 0.4 Absolute Eosinophils 0.1 Absolute Basophils 0.0 Sodium 141.4 Potassium 4.1 Chloride 113 H Carbon Dioxide 16 L Anion Gap 12 BUN 19 Creatinine 0.90 Est GFR ( Amer) > 60 Est GFR (Non-Af Amer) > 60 Glucose 151 H Calcium 8.2 L Total Bilirubin 0.5 AST 84 H ALT 128 H Alkaline Phosphatase 176 H Total Protein 5.3 L Albumin 2.7 L 03/10/17 03/11/17 04:19 04:18 Creatine Kinase 121 CK-MB (CK-2) 0.90 Impressions: Abdomen Ultrasound 03/10/17 00:00 IMPRESSION: FATTY LIVER. CHOLELITHIASIS. PANCREAS PARTIALLY OR COMPLETELY OBSCURED. OTHERWISE NORMAL RIGHT UPPER QUADRANT ULTRASOUND. Abdomen/Pelvis CT 03/13/17 00:00 IMPRESSION: 1. Right breast mass. 2. 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 3. Questionable thickening the posterior bladder wall. 4. Endometrial canal is prominent for patient age. Pelvic ultrasound is recommended. 5. The left ilium is somewhat heterogeneous. Metastatic disease cannot be excluded. Body Scan Nuclear Medicine 03/13/17 00:00 IMPRESSION: Multiple foci of increased uptake worrisome for bony metastatic disease Chest CT 03/13/17 00:00 IMPRESSION: Large right breast mass with axillary adenopathy marked skin thickening highly concerning for neoplasm. No pulmonary or osseous metastases are seen in the chest. Chest X-Ray 03/20/17 07:22 IMPRESSION: NO SIGNIFICANT RADIOGRAPHIC FINDING IN THE CHEST. Assessment & Plan - Diagnosis (1) Cellulitis Qualifiers: Site of cellulitis: other site Qualified Code(s): L03.818 - Cellulitis of other sites Is this a current diagnosis for this admission?: Yes Plan: Patient developed a little bit of erythema at her right breast biopsy site. It is stable. She is currently on antibiotics. (2) Constipation Qualifiers: Constipation type: other constipation type Qualified Code(s): K59.09 - Other constipation Is this a current diagnosis for this admission?: Yes Plan: Patient is now moving her bowels more regularly. Will monitor and treat as indicated to help prevent constipation. (3) Diabetes mellitus type 2 in nonobese Is this a current diagnosis for this admission?: Yes Plan: Patient is on glargine and lispro. CBGs ranged from 90-300. Will continue current plan for now and follow CBGs to see if there is a need to change dosing on the insulins. No changes being made today (4) Essential hypertension Is this a current diagnosis for this admission?: Yes Plan: Blood pressure normal. No changes being made today (5) Hypercalcemia Is this a current diagnosis for this admission?: Yes Plan: Calcium is 8.4 this morning. She has received Zometa and calcitonin. She is also receiving her first dose of chemo. Will recheck a calcium in the morning to decide upon further treatment plan. (6) Lobular adenocarcinoma Qualifiers: Laterality: right Qualified Code(s): C50.911 - Malignant neoplasm of unspecified site of right female breast Is this a current diagnosis for this admission?: Yes Plan: Patient had a breast biopsy, right breast, showed lobular adenocarcinoma. She is being followed by oncology. She received her first round of chemo in the hospital today. Patient received a dose of Neulasta. Oncology is still following. (7) Urinary tract infection Qualifiers: Urinary tract infection type: acute cystitis Hematuria presence: without hematuria Qualified Code(s): N30.00 - Acute cystitis without hematuria Is this a current diagnosis for this admission?: Yes Plan: Patient is growing greater than 100,000 E. coli and Pseudomonas in her urine. She is being treated for a complicated cystitis UTI in the setting of chemo, will continue with broad-spectrum antibiotics for now. Also her cellulitis around the breast biopsy site has improved. Patient is receiving a dose of Neulasta as well. - Time Time Spent with patient: 25-34 minutes Medications reviewed and adjusted accordingly: Yes Anticipated discharge: Home Within: within 72 hours
[2017-03-22] MEDS: VANCOMYCIN HCL 750 MG in DEXTROSE 5%-WATER 250 ML IV SCH ×2 (01:07→14:18)
[2017-03-22] MEDS: NORMAL SALINE 1000 ML 1,000 ML IV PRN (04:05)
[2017-03-22] MEDS ORDERED: LORATADINE 10 MG TABLET PO PRN (05:00)
[2017-03-22] MEDS ORDERED: PEGFILGRASTIM INJ 6 MG/0.6 ML DISP.SYRIN SUBCUT PRN (05:00)
[2017-03-22] MEDS: ONDANSETRON HCL 8 MG TABLET PO SCH ×3 (05:11→21:54)
[2017-03-22 05:30] LABS: ABSOLUTE LYMPHOCYTES (AUTO) 0.6 10^3/uL (0.5-4.7); ABSOLUTE MONOCYTES (AUTO) 0.2 10^3/uL (0.1-1.4); ABSOLUTE NEUT (AUTO) 5.4 10^3/uL (1.7-8.2); BASOPHILS % (AUTO) 0.3 % (0-2); HEMATOCRIT 25.7 % (36.0-47.0); HEMOGLOBIN 8.7 g/dL (12.0-15.5); HGB HCT DIFFERENCE 0.4; LYMPHOCYTES % (AUTO) 9.2 % (13-45); MEAN CORPUSCULAR HEMOGLOBIN 27.5 pg (27.0-33.4); MEAN CORPUSCULAR VOLUME 81 fl (80-97); MONOCYTES % (AUTO) 3.8 % (3-13); RED BLOOD COUNT 3.18 10^6/uL (3.72-5.28); RED CELL DISTRIBUTION WIDTH 14.7 % (11.5-14.0); SEGMENTED NEUTROPHILS % (AUTO) 86.7 % (42-78); WHITE BLOOD COUNT 6.2 10^3/uL (4.0-10.5)
[2017-03-22 05:49] LABS: ALANINE AMINOTRANSFERASE 126 U/L (9-52); ALBUMIN 2.5 g/dL (3.5-5.0); ALKALINE PHOSPHATASE 166 U/L (38-126); ANION GAP 13 (5-19); ASPARTATE AMINO TRANSFERASE 96 U/L (14-36); BILIRUBIN,DIRECT 0.3 mg/dL (0.0-0.4); BILIRUBIN,TOTAL 0.4 mg/dL (0.2-1.3); BLOOD UREA NITROGEN 16 mg/dL (7-20); CALCIUM 7.4 mg/dL (8.4-10.2); CARBON DIOXIDE 14 mmol/L (22-30); CHLORIDE 113 mmol/L (98-107); CREATININE RESULT 0.93 mg/dL (0.52-1.25); GLUCOSE 258 mg/dL (75-110); POTASSIUM 4.1 mmol/L (3.6-5.0); SODIUM 139.5 mmol/L (137-145); TOTAL PROTEIN 5.1 g/dL (6.3-8.2)
[2017-03-22] MEDS: MAGNESIUM SULFATE/D5W 1 GM/100 ML RTUPB IV SCH ×5 (06:44→18:34)
[2017-03-22] MEDS: ACETAMINOPHEN 325 MG TABLET PO PRN (09:07)
[2017-03-22] MEDS: INSULIN LISPRO 100 UNIT/ML 3 ML VIAL SUBCUT PRN ×3 (09:32→17:23)
[2017-03-22] MEDS: INSULIN GLARGINE,HUM.REC.ANLOG 300 UNIT/3 ML INSULN.PEN SUBCUT SCH ×2 (10:45→21:54)
[2017-03-22] MEDS: AMLODIPINE BESYLATE 10 MG TABLET PO SCH (10:47)
[2017-03-22] MEDS: DOCUSATE SODIUM 100 MG CAPSULE PO SCH ×2 (10:47→17:24)
[2017-03-22] MEDS: LISINOPRIL 10 MG TABLET PO SCH (10:48)
[2017-03-22] MEDS: ERYTHROMYCIN 0.5% OPH OINTMENT 3.5 GM TUBE OD SCH ×2 (10:48→17:24)
[2017-03-22] MEDS: MEGESTROL ACETATE SUSP 400 MG/10 ML UDCUP PO SCH (10:49)
[2017-03-22] MEDS: NYSTATIN 500000 UNIT/5 ML UDCUP PO SCH ×4 (10:49→21:54)
[2017-03-22] MEDS: PREDNISOLONE ACETATE 1% OPH SUSP 5 ML OU SCH ×2 (10:50→17:25)
[2017-03-22] MEDS: POLYETHYLENE GLYCOL 3350 POWDER 17 GM/1 PACKET PO SCH (10:50)
[2017-03-22] MEDS: NYSTATIN CREAM 15 GM TP SCH ×2 (10:50→17:25)
[2017-03-22] MEDS: METOPROLOL SUCCINATE 50 MG TAB.SR.24H PO SCH ×2 (10:51→21:54)
[2017-03-22] MEDS ORDERED: LORATADINE 10 MG TABLET PO ONE (11:30)
[2017-03-22] MEDS: CEFEPIME 1 GM/D5W RTU 1 GM/50 ML RTUPB IV SCH (11:35)
[2017-03-22] MEDS ORDERED: PEGFILGRASTIM INJ 6 MG/0.6 ML DISP.SYRIN SUBCUT ONE (12:00)
[2017-03-22 13:41] LABS: CREATININE RESULT 0.88 mg/dL (0.52-1.25)
--- NOTE | 2017-03-22 16:53 | PDOC PROGRESS REPORT ---
Subjective Progress Note for:: 03/22/17 Subjective:: Patient feeling very good today. Breathing fine. No chest pain or other acute pain. Moving bowels and no dysuria. No breast pain. No fevers or chills today. She feels clear headed, no insomnia, no headache, no nausea or vomiting. We talked about her breast cancer. She is tolerating treatment well so far. reView of systems: Please see above Reason For Visit: UTI, HYPERCALCEMIA Physical Exam Vital Signs: Temp Pulse Resp BP Pulse Ox 98.3 F 65 20 124/48 L 96 03/22/17 12:03 03/22/17 12:03 03/22/17 12:03 03/22/17 12:03 03/22/17 12:03 Intake & Output 03/21/17 03/22/17 03/23/17 06:59 06:59 06:59 Intake Total 3254 4304 320 Balance 3254 4304 320 Weight 74.8 kg 77.1 kg General appearance: PRESENT: no acute distress Head exam: PRESENT: atraumatic, normocephalic Eye exam: PRESENT: EOMI. ABSENT: scleral icterus Ear exam: PRESENT: normal external ear exam Mouth exam: PRESENT: moist, neck supple Neck exam: ABSENT: lymphadenopathy Respiratory exam: PRESENT: clear to auscultation zane. ABSENT: rales, rhonchi, wheezes Cardiovascular exam: PRESENT: RRR GI/Abdominal exam: PRESENT: normal bowel sounds, soft. ABSENT: distended, guarding, mass, organolmegaly, rebound, tenderness Torso Front/Back Image: 1 - Right breast with peau d'orange peau d'orange, darkish discoloration, very minimal and improving erythema Extremities exam: ABSENT: calf tenderness, pedal edema Musculoskeletal exam: PRESENT: other - Sitting up in chair, moving all extremities spontaneously Neurological exam: PRESENT: alert, oriented to person, oriented to place Psychiatric exam: ABSENT: agitated, anxious Skin exam: PRESENT: dry, warm, other Results Laboratory Results: 03/22/17 04:26 03/22/17 12:56 03/22/17 03/22/17 03/22/17 04:26 04:26 04:26 WBC 6.2 RBC 3.18 L Hgb 8.7 L Hct 25.7 L MCV 81 MCH 27.5 MCHC 34.0 RDW 14.7 H Plt Count 217 Seg Neutrophils % 86.7 H Lymphocytes % 9.2 L Monocytes % 3.8 Eosinophils % 0.0 Basophils % 0.3 Absolute Neutrophils 5.4 Absolute Lymphocytes 0.6 Absolute Monocytes 0.2 Absolute Eosinophils 0.0 Absolute Basophils 0.0 Sodium Cancelled 139.5 Potassium Cancelled 4.1 Chloride Cancelled 113 H Carbon Dioxide Cancelled 14 L Anion Gap Cancelled 13 BUN Cancelled 16 Creatinine Cancelled 0.93 Est GFR ( Amer) Cancelled > 60 Est GFR (Non-Af Amer) Cancelled 58 L Glucose Cancelled 258 H Calcium Cancelled 7.4 L Ionized Calcium Jose Magnesium 1.2 L* Total Bilirubin 0.4 AST 96 H ALT 126 H Alkaline Phosphatase 166 H Total Protein 5.1 L Albumin 2.5 L 03/22/17 03/22/17 09:52 12:56 WBC RBC Hgb Hct MCV MCH MCHC RDW Plt Count Seg Neutrophils % Lymphocytes % Monocytes % Eosinophils % Basophils % Absolute Neutrophils Absolute Lymphocytes Absolute Monocytes Absolute Eosinophils Absolute Basophils Sodium Potassium Chloride Carbon Dioxide Anion Gap BUN Creatinine 0.88 Est GFR ( Amer) > 60 Est GFR (Non-Af Amer) > 60 Glucose Calcium Ionized Calcium Jose 1.08 L Magnesium Total Bilirubin AST ALT Alkaline Phosphatase Total Protein Albumin 03/20/17 10:25 Catheterized Urine Urine Culture - Final NO GROWTH 2 DAYS 03/10/17 03/11/17 04:19 04:18 Creatine Kinase 121 CK-MB (CK-2) 0.90 Impressions: Abdomen Ultrasound 03/10/17 00:00 IMPRESSION: FATTY LIVER. CHOLELITHIASIS. PANCREAS PARTIALLY OR COMPLETELY OBSCURED. OTHERWISE NORMAL RIGHT UPPER QUADRANT ULTRASOUND. Abdomen/Pelvis CT 03/13/17 00:00 IMPRESSION: 1. Right breast mass. 2. 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 3. Questionable thickening the posterior bladder wall. 4. Endometrial canal is prominent for patient age. Pelvic ultrasound is recommended. 5. The left ilium is somewhat heterogeneous. Metastatic disease cannot be excluded. Body Scan Nuclear Medicine 03/13/17 00:00 IMPRESSION: Multiple foci of increased uptake worrisome for bony metastatic disease Chest CT 03/13/17 00:00 IMPRESSION: Large right breast mass with axillary adenopathy marked skin thickening highly concerning for neoplasm. No pulmonary or osseous metastases are seen in the chest. Chest X-Ray 03/20/17 07:22 IMPRESSION: NO SIGNIFICANT RADIOGRAPHIC FINDING IN THE CHEST. Assessment & Plan - Diagnosis (1) Cellulitis Qualifiers: Site of cellulitis: other site Qualified Code(s): L03.818 - Cellulitis of other sites Is this a current diagnosis for this admission?: Yes Plan: Significantly improved. Continue antibiotics and continue to monitor. (2) Constipation Qualifiers: Constipation type: other constipation type Qualified Code(s): K59.09 - Other constipation Is this a current diagnosis for this admission?: Yes Plan: Resolved, continue current care. (3) Diabetes mellitus type 2 in nonobese Is this a current diagnosis for this admission?: Yes Plan: Blood glucose has been running high, will increase glargine from 25-28 units, continue short acting lispro, recheck in the morning. (4) Essential hypertension Is this a current diagnosis for this admission?: Yes Plan: Blood pressure is normal. No changes to be made. Continue to monitor. (5) Hypercalcemia Is this a current diagnosis for this admission?: Yes Plan: Resolved. Zometa given. Calcitonin is 1 dose given and now has been discontinued. (6) Lobular adenocarcinoma Qualifiers: Laterality: right Qualified Code(s): C50.911 - Malignant neoplasm of unspecified site of right female breast Is this a current diagnosis for this admission?: Yes Plan: Patient and I discussed her cancer diagnosis today. She is hopeful that she will tolerate chemo well. She likes her oncologist very much. (7) Urinary tract infection Qualifiers: Urinary tract infection type: acute cystitis Hematuria presence: without hematuria Qualified Code(s): N30.00 - Acute cystitis without hematuria Is this a current diagnosis for this admission?: Yes Plan: For Pseudomonas and E. coli will continue cefepime. (8) Hypomagnesemia Plan: Magnesium 1.2 today will give 2 g of IV mag and recheck tomorrow. - Time Time Spent with patient: 25-34 minutes
[2017-03-23] MEDS: CEFEPIME 1 GM/D5W RTU 1 GM/50 ML RTUPB IV SCH ×2 (00:18→14:01)
[2017-03-23] MEDS: VANCOMYCIN HCL 750 MG in DEXTROSE 5%-WATER 250 ML IV SCH ×2 (04:36→14:39)
[2017-03-23] MEDS: ONDANSETRON HCL 8 MG TABLET PO SCH ×2 (05:25→14:01)
[2017-03-23] MEDS: NYSTATIN CREAM 15 GM TP SCH ×2 (10:31→18:00)
[2017-03-23] MEDS: INSULIN GLARGINE,HUM.REC.ANLOG 300 UNIT/3 ML INSULN.PEN SUBCUT SCH ×2 (10:32→21:53)
[2017-03-23] MEDS: POLYETHYLENE GLYCOL 3350 POWDER 17 GM/1 PACKET PO SCH (10:32)
[2017-03-23] MEDS: AMLODIPINE BESYLATE 10 MG TABLET PO SCH (10:33)
[2017-03-23] MEDS: METOPROLOL SUCCINATE 50 MG TAB.SR.24H PO SCH ×2 (10:34→21:53)
[2017-03-23] MEDS: DOCUSATE SODIUM 100 MG CAPSULE PO SCH ×2 (10:34→17:59)
[2017-03-23] MEDS: LORATADINE 10 MG TABLET PO SCH (10:35)
[2017-03-23] MEDS: LISINOPRIL 10 MG TABLET PO SCH (10:35)
[2017-03-23] MEDS: NYSTATIN 500000 UNIT/5 ML UDCUP PO SCH ×4 (10:36→21:53)
[2017-03-23] MEDS: MEGESTROL ACETATE SUSP 400 MG/10 ML UDCUP PO SCH (10:36)
[2017-03-23] MEDS: ERYTHROMYCIN 0.5% OPH OINTMENT 3.5 GM TUBE OD SCH ×2 (10:37→18:00)
[2017-03-23] MEDS: PREDNISOLONE ACETATE 1% OPH SUSP 5 ML OU SCH ×2 (10:37→18:00)
[2017-03-23] MEDS ORDERED: ONDANSETRON HCL INJ/PF 4 MG/2 ML SDV IV PRN (14:30)
[2017-03-23] MEDS ORDERED: MAG HYDROX/AL HYDROX/SIMETH SUSP 30 ML UDCUP PO PRN (14:30)
--- NOTE | 2017-03-23 15:34 | PROGRESS NOTE E ---
Progress Note NAME: JOSH VALERA : 1940 AGE: 76Y DATE: 03/23/2017 ROOM: 309 SUBJECTIVE: The patient was seen at the bedside, she is a 76-year-old woman with locally advanced/inflammatory breast cancer. She was started on chemotherapy and received her first dose this week. She feels a lot better. She appeared to have tolerated the chemotherapy well. She is more alert today. She is participating in physical therapy. The next dose of chemotherapy is due in 3 weeks. I have encouraged her to be compliant with her physical therapy. Her counts will be followed closely as an outpatient. She did receive a dose of Neulasta. If she gets discharged please make an appointment for the patient to be seen in our office the week after discharge. Her next dose of chemotherapy is due in about 3 weeks. I thank you for taking care of her during this hospitalization and allowing me to be a part of her care. DICTATING PHYSICIAN: BRYANT ALBRIGHT M.D. [id number] MARIBEL#: [id number] ID: [id number] JOB#: [id number] ACCT: [id number] cc: >
--- NOTE | 2017-03-23 16:26 | PDOC PROGRESS REPORT ---
Subjective Progress Note for:: 03/23/17 Subjective:: Patient is feeling significantly better. No fevers. No dysuria. No acute pain. She is asking for help deciding whether or not she should go to a rehab. Reason For Visit: UTI, HYPERCALCEMIA, new diagnosis lobular breast carcinoma, polymicrobial urinary tract infection Physical Exam Vital Signs: Temp Pulse Resp BP Pulse Ox 98.8 F 73 16 154/64 H 100 03/23/17 07:59 03/23/17 14:00 03/23/17 07:59 03/23/17 07:59 03/23/17 07:59 Intake & Output 03/22/17 03/23/17 03/24/17 06:59 06:59 06:59 Intake Total 4304 2650 237 Balance 4304 2650 237 Weight 77.1 kg 76.2 kg General appearance: PRESENT: no acute distress Eye exam: PRESENT: conjunctiva pink, EOMI Mouth exam: PRESENT: moist Neck exam: PRESENT: lymphadenopathy Respiratory exam: PRESENT: clear to auscultation zane. ABSENT: rales, rhonchi, wheezes Cardiovascular exam: PRESENT: RRR. ABSENT: diastolic murmur, rubs, systolic murmur Pulses: PRESENT: normal radial pulses GI/Abdominal exam: PRESENT: normal bowel sounds, soft. ABSENT: distended, guarding, mass, organolmegaly, rebound, tenderness Extremities exam: ABSENT: pedal edema Musculoskeletal exam: PRESENT: normal inspection Neurological exam: PRESENT: alert, oriented to person, oriented to place Psychiatric exam: PRESENT: appropriate affect, normal mood. ABSENT: agitated, anxious Skin exam: PRESENT: other - Right breast with large firm mass presenting lobular breast cancer. Results Laboratory Results: 03/22/17 04:26 03/22/17 12:56 03/10/17 03/11/17 04:19 04:18 Creatine Kinase 121 CK-MB (CK-2) 0.90 Impressions: Abdomen Ultrasound 03/10/17 00:00 IMPRESSION: FATTY LIVER. CHOLELITHIASIS. PANCREAS PARTIALLY OR COMPLETELY OBSCURED. OTHERWISE NORMAL RIGHT UPPER QUADRANT ULTRASOUND. Abdomen/Pelvis CT 03/13/17 00:00 IMPRESSION: 1. Right breast mass. 2. 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 3. Questionable thickening the posterior bladder wall. 4. Endometrial canal is prominent for patient age. Pelvic ultrasound is recommended. 5. The left ilium is somewhat heterogeneous. Metastatic disease cannot be excluded. Body Scan Nuclear Medicine 03/13/17 00:00 IMPRESSION: Multiple foci of increased uptake worrisome for bony metastatic disease Chest CT 03/13/17 00:00 IMPRESSION: Large right breast mass with axillary adenopathy marked skin thickening highly concerning for neoplasm. No pulmonary or osseous metastases are seen in the chest. Chest X-Ray 03/20/17 07:22 IMPRESSION: NO SIGNIFICANT RADIOGRAPHIC FINDING IN THE CHEST. Assessment & Plan - Diagnosis (1) Cellulitis Qualifiers: Site of cellulitis: other site Qualified Code(s): L03.818 - Cellulitis of other sites Is this a current diagnosis for this admission?: Yes Plan: Patient had cellulitis around the right breast biopsy site that is now resolved. (2) Constipation Qualifiers: Constipation type: other constipation type Qualified Code(s): K59.09 - Other constipation Is this a current diagnosis for this admission?: Yes Plan: Resolved. (3) Diabetes mellitus type 2 in nonobese Is this a current diagnosis for this admission?: Yes Plan: Continue current care with her insulin. (4) Essential hypertension Is this a current diagnosis for this admission?: Yes Plan: Patient is on metoprolol and amlodipine. Continue current care. (5) Hypercalcemia Is this a current diagnosis for this admission?: Yes Plan: Resolved with Zometa and calcitonin. Recheck calcium in the morning. (6) Lobular adenocarcinoma Qualifiers: Laterality: right Qualified Code(s): C50.911 - Malignant neoplasm of unspecified site of right female breast Is this a current diagnosis for this admission?: Yes Plan: Patient had biopsy and first dose of chemo during this hospitalization. She also received a dose of Neulasta after the chemo. From oncology perspective she is ready for discharge and will need follow-up in their office, next chemo treatment is due in 3 weeks. (7) Urinary tract infection Qualifiers: Urinary tract infection type: acute cystitis Hematuria presence: without hematuria Qualified Code(s): N30.00 - Acute cystitis without hematuria Is this a current diagnosis for this admission?: Yes Plan: Patient grew E. coli and Pseudomonas in her urine. She has been on cefepime for several days and today I transitioned her to Levaquin to which both the E. coli and Pseudomonas are susceptible. She was on vancomycin and I DC'd this today as there is no evidence of staph infection. (8) Hypomagnesemia Plan: We will check a basic metabolic panel in the morning. Will replete as indicated. - Time Time Spent with patient: 25-34 minutes
[2017-03-23] MEDS: INSULIN LISPRO 100 UNIT/ML 3 ML VIAL SUBCUT PRN (17:59)
[2017-03-24] MEDS: NORMAL SALINE 1000 ML 1,000 ML IV PRN (01:07)
[2017-03-24 06:32] LABS: HEMATOCRIT 28.4 % (36.0-47.0); HEMOGLOBIN 9.5 g/dL (12.0-15.5); HGB HCT DIFFERENCE 0.1; MEAN CORPUSCULAR HEMOGLOBIN 26.9 pg (27.0-33.4); MEAN CORPUSCULAR HGB CONC 33.4 g/dL (32.0-36.0); MEAN CORPUSCULAR VOLUME 81 fl (80-97); RED BLOOD COUNT 3.53 10^6/uL (3.72-5.28); RED CELL DISTRIBUTION WIDTH 15.1 % (11.5-14.0); WHITE BLOOD COUNT 11.7 10^3/uL (4.0-10.5)
[2017-03-24 06:51] LABS: ANION GAP 13 (5-19); BLOOD UREA NITROGEN 10 mg/dL (7-20); CALCIUM 8.1 mg/dL (8.4-10.2); CARBON DIOXIDE 17 mmol/L (22-30); CHLORIDE 116 mmol/L (98-107); CREATININE RESULT 0.74 mg/dL (0.52-1.25); GLUCOSE 50 mg/dL (75-110); POTASSIUM 3.5 mmol/L (3.6-5.0); SODIUM 146.2 mmol/L (137-145)
[2017-03-24] MEDS: MEGESTROL ACETATE SUSP 400 MG/10 ML UDCUP PO SCH (10:17)
[2017-03-24] MEDS: NYSTATIN 500000 UNIT/5 ML UDCUP PO SCH ×4 (10:18→22:28)
[2017-03-24] MEDS: PREDNISOLONE ACETATE 1% OPH SUSP 5 ML OU SCH ×2 (10:18→17:40)
[2017-03-24] MEDS: ERYTHROMYCIN 0.5% OPH OINTMENT 3.5 GM TUBE OD SCH (10:19)
[2017-03-24] MEDS: POLYETHYLENE GLYCOL 3350 POWDER 17 GM/1 PACKET PO SCH (10:19)
[2017-03-24] MEDS: NYSTATIN CREAM 15 GM TP SCH (10:19)
[2017-03-24] MEDS: LEVOFLOXACIN 750 MG TABLET PO SCH (10:20)
[2017-03-24] MEDS: DOCUSATE SODIUM 100 MG CAPSULE PO SCH ×2 (10:20→17:40)
[2017-03-24] MEDS: METOPROLOL SUCCINATE 50 MG TAB.SR.24H PO SCH ×2 (10:20→22:28)
[2017-03-24] MEDS: LORATADINE 10 MG TABLET PO SCH (10:20)
[2017-03-24] MEDS: AMLODIPINE BESYLATE 10 MG TABLET PO SCH (10:21)
[2017-03-24] MEDS: LISINOPRIL 10 MG TABLET PO SCH (10:21)
[2017-03-24] MEDS: INSULIN GLARGINE,HUM.REC.ANLOG 300 UNIT/3 ML INSULN.PEN SUBCUT SCH ×2 (10:22→22:29)
--- NOTE | 2017-03-24 14:34 | PDOC PROGRESS REPORT ---
Subjective Progress Note for:: 03/24/17 Subjective:: Patient relates that she feels well. She states that she would like to go and be seen her [place] and then return back and find a place for her to stay at. She did not realize that she needed some help. She also did not realize that she had cancer because it does not hurt. ROS All systems reviewed and negative except as in subjective All significant laboratories and diagnostics have been reviewed Reason For Visit: UTI, HYPERCALCEMIA Physical Exam Vital Signs: Temp Pulse Resp BP Pulse Ox 99.4 F 76 12 150/58 H 95 03/24/17 04:27 03/24/17 04:27 03/24/17 04:27 03/24/17 04:27 03/24/17 04:27 Intake & Output 03/23/17 03/24/17 03/25/17 06:59 06:59 06:59 Intake Total 2650 3060 Balance 2650 3060 Weight 76.2 kg 76.2 kg General appearance: PRESENT: no acute distress, cooperative, well-developed, well-nourished Head exam: PRESENT: atraumatic Eye exam: PRESENT: EOMI, PERRLA Ear exam: PRESENT: normal external ear exam Mouth exam: PRESENT: moist Neck exam: PRESENT: full ROM. ABSENT: JVD, tenderness, tracheal deviation Respiratory exam: PRESENT: clear to auscultation zane, unlabored. ABSENT: crackles, wheezes Cardiovascular exam: PRESENT: RRR. ABSENT: diastolic murmur, systolic murmur Vascular exam: PRESENT: normal capillary refill GI/Abdominal exam: PRESENT: normal bowel sounds. ABSENT: guarding, rigid, soft , tenderness Extremities exam: ABSENT: joint swelling, pedal edema Neurological exam: PRESENT: alert, oriented to person, oriented to place, oriented to time Psychiatric exam: PRESENT: appropriate affect, normal mood Results Laboratory Results: 03/24/17 05:43 03/24/17 05:43 03/24/17 03/24/17 05:43 05:43 WBC 11.7 H RBC 3.53 L Hgb 9.5 L Hct 28.4 L MCV 81 MCH 26.9 L MCHC 33.4 RDW 15.1 H Plt Count 215 Sodium 146.2 H Potassium 3.5 L Chloride 116 H Carbon Dioxide 17 L Anion Gap 13 BUN 10 Creatinine 0.74 Est GFR ( Amer) > 60 Est GFR (Non-Af Amer) > 60 Glucose 50 L Calcium 8.1 L 03/10/17 03/11/17 04:19 04:18 Creatine Kinase 121 CK-MB (CK-2) 0.90 Impressions: Abdomen Ultrasound 03/10/17 00:00 IMPRESSION: FATTY LIVER. CHOLELITHIASIS. PANCREAS PARTIALLY OR COMPLETELY OBSCURED. OTHERWISE NORMAL RIGHT UPPER QUADRANT ULTRASOUND. Abdomen/Pelvis CT 03/13/17 00:00 IMPRESSION: 1. Right breast mass. 2. 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 3. Questionable thickening the posterior bladder wall. 4. Endometrial canal is prominent for patient age. Pelvic ultrasound is recommended. 5. The left ilium is somewhat heterogeneous. Metastatic disease cannot be excluded. Body Scan Nuclear Medicine 03/13/17 00:00 IMPRESSION: Multiple foci of increased uptake worrisome for bony metastatic disease Chest CT 03/13/17 00:00 IMPRESSION: Large right breast mass with axillary adenopathy marked skin thickening highly concerning for neoplasm. No pulmonary or osseous metastases are seen in the chest. Chest X-Ray 03/20/17 07:22 IMPRESSION: NO SIGNIFICANT RADIOGRAPHIC FINDING IN THE CHEST. Assessment & Plan - Diagnosis (1) Hypercalcemia Is this a current diagnosis for this admission?: Yes Plan: Due to malignancy. Improved (2) Lobular adenocarcinoma Qualifiers: Laterality: right Qualified Code(s): C50.911 - Malignant neoplasm of unspecified site of right female breast Is this a current diagnosis for this admission?: Yes Plan: Patient was under the impression that cancer was painful. She will require follow-up with oncologist upon discharge (3) Urinary tract infection Qualifiers: Urinary tract infection type: acute cystitis Hematuria presence: without hematuria Qualified Code(s): N30.00 - Acute cystitis without hematuria Is this a current diagnosis for this admission?: Yes Plan: Continue Levaquin p.o. for a total of 10 days - Time Time Spent with patient: 15-24 minutes Medications reviewed and adjusted accordingly: Yes Anticipated discharge: Other - At present time still trying to determine disposition since patient will like to go and visit her kids and then return back and get placed in an assisted living facility - Inpatient Certification Based on my medical assessment, after consideration of the patient's comorbidities, presenting symptoms, or acuity I expect that the services needed warrant INPATIENT care.: Yes I certify that my determination is in accordance with my understanding of Medicare's requirements for reasonable and necessary INPATIENT services [42 CFR 412.3e].: Yes Medical Necessity: Other - Disposition needs to be determined since will require coordination for further oncology treatment of breast cancer
[2017-03-25] MEDS: LISINOPRIL 10 MG TABLET PO SCH (11:18)
[2017-03-25] MEDS: NYSTATIN 500000 UNIT/5 ML UDCUP PO SCH ×4 (11:18→21:49)
[2017-03-25] MEDS: ACETAMINOPHEN 325 MG TABLET PO PRN ×2 (11:18→19:41)
[2017-03-25] MEDS: DOCUSATE SODIUM 100 MG CAPSULE PO SCH ×2 (11:19→17:56)
[2017-03-25] MEDS: METOPROLOL SUCCINATE 50 MG TAB.SR.24H PO SCH ×2 (11:19→21:48)
[2017-03-25] MEDS: AMLODIPINE BESYLATE 10 MG TABLET PO SCH (11:19)
[2017-03-25] MEDS: LEVOFLOXACIN 750 MG TABLET PO SCH (11:20)
[2017-03-25] MEDS: POLYETHYLENE GLYCOL 3350 POWDER 17 GM/1 PACKET PO SCH (11:21)
[2017-03-25] MEDS: MEGESTROL ACETATE SUSP 400 MG/10 ML UDCUP PO SCH (11:21)
[2017-03-25] MEDS: PREDNISOLONE ACETATE 1% OPH SUSP 5 ML OU SCH ×2 (11:21→17:56)
[2017-03-25] MEDS: INSULIN GLARGINE,HUM.REC.ANLOG 300 UNIT/3 ML INSULN.PEN SUBCUT SCH ×2 (11:22→21:49)
[2017-03-25] MEDS: INSULIN LISPRO 100 UNIT/ML 3 ML VIAL SUBCUT PRN ×2 (13:37→17:56)
--- NOTE | 2017-03-25 17:37 | PDOC PROGRESS REPORT ---
Subjective Progress Note for:: 03/25/17 Subjective:: Patient relates that she feels well. Is anticipating to go home on Monday. ROS All systems reviewed and negative except as in subjective All significant laboratories and diagnostics have been reviewed Reason For Visit: UTI, HYPERCALCEMIA Physical Exam Vital Signs: Temp Pulse Resp BP Pulse Ox 98.7 F 76 18 140/58 H 97 03/25/17 00:38 03/25/17 02:00 03/25/17 00:38 03/25/17 00:38 03/25/17 00:38 Intake & Output 03/23/17 03/24/17 03/25/17 06:59 06:59 06:59 Intake Total 2650 3060 1250 Balance 2650 3060 1250 Weight 76.2 kg 76.2 kg General appearance: PRESENT: no acute distress, cooperative, well-developed, well-nourished Head exam: PRESENT: atraumatic, normocephalic Eye exam: PRESENT: EOMI, PERRLA Ear exam: PRESENT: normal external ear exam Mouth exam: PRESENT: moist, neck supple Neck exam: PRESENT: full ROM, tenderness. ABSENT: JVD Respiratory exam: PRESENT: clear to auscultation zane. ABSENT: crackles, rhonchi Cardiovascular exam: PRESENT: RRR. ABSENT: diastolic murmur, systolic murmur Vascular exam: PRESENT: normal capillary refill GI/Abdominal exam: PRESENT: normal bowel sounds, soft. ABSENT: tenderness Extremities exam: ABSENT: joint swelling, pedal edema Musculoskeletal exam: PRESENT: full ROM Neurological exam: PRESENT: alert, oriented to person, oriented to place, oriented to time Results Laboratory Results: 03/24/17 05:43 03/24/17 05:43 03/24/17 03/24/17 05:43 05:43 WBC 11.7 H RBC 3.53 L Hgb 9.5 L Hct 28.4 L MCV 81 MCH 26.9 L MCHC 33.4 RDW 15.1 H Plt Count 215 Sodium 146.2 H Potassium 3.5 L Chloride 116 H Carbon Dioxide 17 L Anion Gap 13 BUN 10 Creatinine 0.74 Est GFR ( Amer) > 60 Est GFR (Non-Af Amer) > 60 Glucose 50 L Calcium 8.1 L 03/10/17 03/11/17 04:19 04:18 Creatine Kinase 121 CK-MB (CK-2) 0.90 Impressions: Abdomen Ultrasound 03/10/17 00:00 IMPRESSION: FATTY LIVER. CHOLELITHIASIS. PANCREAS PARTIALLY OR COMPLETELY OBSCURED. OTHERWISE NORMAL RIGHT UPPER QUADRANT ULTRASOUND. Abdomen/Pelvis CT 03/13/17 00:00 IMPRESSION: 1. Right breast mass. 2. 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 3. Questionable thickening the posterior bladder wall. 4. Endometrial canal is prominent for patient age. Pelvic ultrasound is recommended. 5. The left ilium is somewhat heterogeneous. Metastatic disease cannot be excluded. Body Scan Nuclear Medicine 03/13/17 00:00 IMPRESSION: Multiple foci of increased uptake worrisome for bony metastatic disease Chest CT 03/13/17 00:00 IMPRESSION: Large right breast mass with axillary adenopathy marked skin thickening highly concerning for neoplasm. No pulmonary or osseous metastases are seen in the chest. Chest X-Ray 03/20/17 07:22 IMPRESSION: NO SIGNIFICANT RADIOGRAPHIC FINDING IN THE CHEST. Assessment & Plan - Diagnosis (1) Hypercalcemia Is this a current diagnosis for this admission?: Yes Plan: Due to malignancy. Improved. Trend (2) Lobular adenocarcinoma Qualifiers: Laterality: right Qualified Code(s): C50.911 - Malignant neoplasm of unspecified site of right female breast Is this a current diagnosis for this admission?: Yes Plan: Patient was under the impression that cancer was painful. She will require follow-up with oncologist upon discharge (3) Urinary tract infection Qualifiers: Urinary tract infection type: acute cystitis Hematuria presence: without hematuria Qualified Code(s): N30.00 - Acute cystitis without hematuria Is this a current diagnosis for this admission?: Yes Plan: Continue Levaquin p.o. for a total of 10 days - Time Time Spent with patient: Less than 15 minutes Medications reviewed and adjusted accordingly: Yes Anticipated discharge: Home with Homehealth Within: within 48 hours - Inpatient Certification Based on my medical assessment, after consideration of the patient's comorbidities, presenting symptoms, or acuity I expect that the services needed warrant INPATIENT care.: Yes I certify that my determination is in accordance with my understanding of Medicare's requirements for reasonable and necessary INPATIENT services [42 CFR 412.3e].: Yes Medical Necessity: Failure to Improve With Outpatient Therapy
[2017-03-25] MEDS: MIRTAZAPINE 15 MG TABLET PO SCH (21:48)
[2017-03-26 05:57] LABS: HEMATOCRIT 26.3 % (36.0-47.0); HEMOGLOBIN 8.9 g/dL (12.0-15.5); HGB HCT DIFFERENCE 0.4; MEAN CORPUSCULAR HEMOGLOBIN 27.2 pg (27.0-33.4); MEAN CORPUSCULAR VOLUME 80 fl (80-97); RED BLOOD COUNT 3.29 10^6/uL (3.72-5.28)
[2017-03-26 06:18] LABS: ALANINE AMINOTRANSFERASE 71 U/L (9-52); ALBUMIN 2.8 g/dL (3.5-5.0); ALKALINE PHOSPHATASE 158 U/L (38-126); ANION GAP 12 (5-19); ASPARTATE AMINO TRANSFERASE 43 U/L (14-36); BILIRUBIN,DIRECT 0.4 mg/dL (0.0-0.4); BILIRUBIN,TOTAL 0.5 mg/dL (0.2-1.3); BLOOD UREA NITROGEN 20 mg/dL (7-20); CALCIUM 8.1 mg/dL (8.4-10.2); CARBON DIOXIDE 16 mmol/L (22-30); CHLORIDE 114 mmol/L (98-107); CREATININE RESULT 0.94 mg/dL (0.52-1.25); GLUCOSE 140 mg/dL (75-110); MAGNESIUM 1.9 mg/dL (1.6-2.3); POTASSIUM 4.1 mmol/L (3.6-5.0); TOTAL PROTEIN 5.4 g/dL (6.3-8.2)
[2017-03-26 06:41] LABS: WHITE BLOOD COUNT 2.6 10^3/uL (4.0-10.5)
[2017-03-26 06:46] LABS: ABSOLUTE EOSINOPHILS# (MANUAL) 0.1 10^3/uL (0.0-0.6); BAND NEUTROPHILS % (MANUAL) 4 % (3-5); BASOPHILS % (MANUAL) 1 % (0-2); EOSINOPHILS % (MANUAL) 2 % (0-6); LYMPHOCYTES % (MANUAL) 17 % (13-45); TOTAL CELLS COUNTED 100
[2017-03-26 06:47] LABS: ANISOCYTOSIS 1+; OVALOCYTES SLIGHT; POIKILOCYTOSIS SLIGHT
[2017-03-26] MEDS: DOCUSATE SODIUM 100 MG CAPSULE PO SCH ×2 (09:32→17:36)
[2017-03-26] MEDS: LISINOPRIL 10 MG TABLET PO SCH (09:33)
[2017-03-26] MEDS: METOPROLOL SUCCINATE 50 MG TAB.SR.24H PO SCH ×2 (09:33→22:20)
[2017-03-26] MEDS: AMLODIPINE BESYLATE 10 MG TABLET PO SCH (09:34)
[2017-03-26] MEDS: POLYETHYLENE GLYCOL 3350 POWDER 17 GM/1 PACKET PO SCH (09:34)
[2017-03-26] MEDS: ACETAMINOPHEN 325 MG TABLET PO PRN (09:35)
[2017-03-26] MEDS: LEVOFLOXACIN 750 MG TABLET PO SCH (09:35)
[2017-03-26] MEDS: INSULIN GLARGINE,HUM.REC.ANLOG 300 UNIT/3 ML INSULN.PEN SUBCUT SCH ×2 (09:36→22:21)
[2017-03-26] MEDS: NYSTATIN 500000 UNIT/5 ML UDCUP PO SCH (09:36)
[2017-03-26] MEDS: PREDNISOLONE ACETATE 1% OPH SUSP 5 ML OU SCH ×2 (09:38→17:35)
--- NOTE | 2017-03-26 15:09 | PDOC PROGRESS REPORT ---
Subjective Progress Note for:: 03/26/17 Subjective:: No complaints. Talk to case management and family had a change of heart and would like for patient to go to rehab. Her paperwork has will be submitted to [facility] Reason For Visit: UTI, HYPERCALCEMIA Physical Exam Vital Signs: Temp Pulse Resp BP Pulse Ox 98.9 F 88 18 133/53 H 96 03/26/17 04:14 03/26/17 04:14 03/26/17 04:14 03/26/17 04:14 03/26/17 04:14 Intake & Output 03/24/17 03/25/17 03/26/17 06:59 06:59 06:59 Intake Total 3060 1550 669 Output Total 0 Balance 3060 1550 669 Weight 76.2 kg 73.3 kg 55.6 kg General appearance: PRESENT: no acute distress, cooperative Head exam: PRESENT: atraumatic, normocephalic Eye exam: PRESENT: EOMI, PERRLA Ear exam: PRESENT: normal external ear exam Mouth exam: PRESENT: moist, neck supple Neck exam: PRESENT: full ROM. ABSENT: JVD Respiratory exam: PRESENT: clear to auscultation zane. ABSENT: crackles, rhonchi Cardiovascular exam: PRESENT: RRR. ABSENT: diastolic murmur, systolic murmur Vascular exam: PRESENT: normal capillary refill GI/Abdominal exam: PRESENT: normal bowel sounds, soft. ABSENT: distended, tenderness Neurological exam: PRESENT: alert, oriented to person, oriented to place, oriented to time Psychiatric exam: PRESENT: appropriate affect, normal mood Results Laboratory Results: 03/26/17 05:39 03/26/17 05:39 03/26/17 03/26/17 05:39 05:39 WBC 2.6 L D RBC 3.29 L Hgb 8.9 L Hct 26.3 L MCV 80 MCH 27.2 MCHC 34.0 RDW 15.0 H Plt Count 186 Seg Neutrophils % Not Reportable Lymphocytes % Not Reportable Monocytes % Not Reportable Eosinophils % Not Reportable Basophils % Not Reportable Absolute Neutrophils Not Reportable Absolute Lymphocytes Not Reportable Absolute Monocytes Not Reportable Absolute Eosinophils Not Reportable Absolute Basophils Not Reportable Sodium 142.0 Potassium 4.1 Chloride 114 H Carbon Dioxide 16 L Anion Gap 12 BUN 20 Creatinine 0.94 Est GFR ( Amer) > 60 Est GFR (Non-Af Amer) 58 L Glucose 140 H Calcium 8.1 L Magnesium 1.9 Total Bilirubin 0.5 AST 43 H ALT 71 H Alkaline Phosphatase 158 H Total Protein 5.4 L Albumin 2.8 L 03/20/17 10:41 Blood Blood Culture - Final NO GROWTH IN 5 DAYS 03/20/17 08:07 Blood Blood Culture - Final NO GROWTH IN 5 DAYS 03/10/17 03/11/17 04:19 04:18 Creatine Kinase 121 CK-MB (CK-2) 0.90 Impressions: Abdomen Ultrasound 03/10/17 00:00 IMPRESSION: FATTY LIVER. CHOLELITHIASIS. PANCREAS PARTIALLY OR COMPLETELY OBSCURED. OTHERWISE NORMAL RIGHT UPPER QUADRANT ULTRASOUND. Abdomen/Pelvis CT 03/13/17 00:00 IMPRESSION: 1. Right breast mass. 2. 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 3. Questionable thickening the posterior bladder wall. 4. Endometrial canal is prominent for patient age. Pelvic ultrasound is recommended. 5. The left ilium is somewhat heterogeneous. Metastatic disease cannot be excluded. Body Scan Nuclear Medicine 03/13/17 00:00 IMPRESSION: Multiple foci of increased uptake worrisome for bony metastatic disease Chest CT 03/13/17 00:00 IMPRESSION: Large right breast mass with axillary adenopathy marked skin thickening highly concerning for neoplasm. No pulmonary or osseous metastases are seen in the chest. Chest X-Ray 03/20/17 07:22 IMPRESSION: NO SIGNIFICANT RADIOGRAPHIC FINDING IN THE CHEST. Assessment & Plan - Diagnosis (1) Hypercalcemia Is this a current diagnosis for this admission?: Yes Plan: Due to malignancy. Resolved and to trend (2) Lobular adenocarcinoma Qualifiers: Laterality: right Qualified Code(s): C50.911 - Malignant neoplasm of unspecified site of right female breast Is this a current diagnosis for this admission?: Yes Plan: Patient was under the impression that cancer was painful. She will require follow-up with oncologist upon discharge (3) Urinary tract infection Qualifiers: Urinary tract infection type: acute cystitis Hematuria presence: without hematuria Qualified Code(s): N30.00 - Acute cystitis without hematuria Is this a current diagnosis for this admission?: Yes Plan: Continue Levaquin p.o. for a total of 10 days (4) Leukopenia due to antineoplastic chemotherapy Is this a current diagnosis for this admission?: Yes Plan: To trend (5) Elevated LFTs Is this a current diagnosis for this admission?: Yes Plan: CT of the abdomen and pelvis negative. Likely elevated LFTs due to fatty liver disease (6) Hypokalemia Is this a current diagnosis for this admission?: Yes Plan: Resolved (7) Hypomagnesemia Is this a current diagnosis for this admission?: Yes Plan: Resolved (8) Anemia Qualifiers: Anemia type: unspecified type Qualified Code(s): D64.9 - Anemia, unspecified Is this a current diagnosis for this admission?: Yes Plan: To trend - Time Time Spent with patient: Less than 15 minutes Medications reviewed and adjusted accordingly: Yes Anticipated discharge: Acute Rehab Within: within 36 hours - Inpatient Certification Based on my medical assessment, after consideration of the patient's comorbidities, presenting symptoms, or acuity I expect that the services needed warrant INPATIENT care.: Yes I certify that my determination is in accordance with my understanding of Medicare's requirements for reasonable and necessary INPATIENT services [42 CFR 412.3e].: Yes Medical Necessity: Need Close Monitoring Due to Risk of Patient Decompensation
[2017-03-26 16:38] LABS: ANION GAP 13 (5-19); BLOOD UREA NITROGEN 21 mg/dL (7-20); CALCIUM 8.4 mg/dL (8.4-10.2); CARBON DIOXIDE 18 mmol/L (22-30); CHLORIDE 111 mmol/L (98-107); CREATININE RESULT 1.04 mg/dL (0.52-1.25); GLUCOSE 157 mg/dL (75-110); POTASSIUM 4.4 mmol/L (3.6-5.0); SODIUM 142.2 mmol/L (137-145)
[2017-03-26 17:16] LABS: HEMATOCRIT 26.1 % (36.0-47.0); HEMOGLOBIN 8.6 g/dL (12.0-15.5); HGB HCT DIFFERENCE -0.3; MEAN CORPUSCULAR HEMOGLOBIN 26.7 pg (27.0-33.4); MEAN CORPUSCULAR HGB CONC 33.1 g/dL (32.0-36.0); MEAN CORPUSCULAR VOLUME 81 fl (80-97); RED BLOOD COUNT 3.23 10^6/uL (3.72-5.28); RED CELL DISTRIBUTION WIDTH 14.9 % (11.5-14.0); WHITE BLOOD COUNT 2.2 10^3/uL (4.0-10.5)
[2017-03-26] MEDS: INSULIN LISPRO 100 UNIT/ML 3 ML VIAL SUBCUT PRN (17:37)
[2017-03-26 17:45] LABS: BAND NEUTROPHILS % (MANUAL) 5 % (3-5); BASOPHILS % (MANUAL) 0 % (0-2); EOSINOPHILS % (MANUAL) 1 % (0-6); LYMPHOCYTES % (MANUAL) 21 % (13-45); TOTAL CELLS COUNTED 100
[2017-03-26 17:47] LABS: HYPOCHROMASIA 1+; OVALOCYTES SLIGHT; POIKILOCYTOSIS SLIGHT
[2017-03-26] MEDS: MIRTAZAPINE 15 MG TABLET PO SCH (22:21)
[2017-03-27] MEDS: POLYETHYLENE GLYCOL 3350 POWDER 17 GM/1 PACKET PO SCH (10:27)
[2017-03-27] MEDS: DOCUSATE SODIUM 100 MG CAPSULE PO SCH ×2 (10:28→17:33)
[2017-03-27] MEDS: PREDNISOLONE ACETATE 1% OPH SUSP 5 ML OU SCH ×2 (10:28→17:33)
[2017-03-27] MEDS: AMLODIPINE BESYLATE 10 MG TABLET PO SCH (10:28)
[2017-03-27] MEDS: LEVOFLOXACIN 750 MG TABLET PO SCH (10:29)
[2017-03-27] MEDS: LISINOPRIL 10 MG TABLET PO SCH (10:29)
[2017-03-27] MEDS: METOPROLOL SUCCINATE 50 MG TAB.SR.24H PO SCH ×2 (10:30→22:13)
[2017-03-27] MEDS: INSULIN GLARGINE,HUM.REC.ANLOG 300 UNIT/3 ML INSULN.PEN SUBCUT SCH ×2 (10:51→22:18)
[2017-03-27] MEDS ORDERED: MEGESTROL ACETATE SUSP 400 MG/10 ML UDCUP PO ONE (11:00)
[2017-03-27 15:14] LABS: HEMATOCRIT 24.3 % (36.0-47.0); HGB HCT DIFFERENCE -0.3; MEAN CORPUSCULAR HEMOGLOBIN 26.4 pg (27.0-33.4); MEAN CORPUSCULAR HGB CONC 32.9 g/dL (32.0-36.0); MEAN CORPUSCULAR VOLUME 80 fl (80-97); RED BLOOD COUNT 3.04 10^6/uL (3.72-5.28); RED CELL DISTRIBUTION WIDTH 15.3 % (11.5-14.0); WHITE BLOOD COUNT 2.6 10^3/uL (4.0-10.5)
[2017-03-27 15:47] LABS: ABSOLUTE EOSINOPHILS# (MANUAL) 0.1 10^3/uL (0.0-0.6); BAND NEUTROPHILS % (MANUAL) 4 % (3-5); BASOPHILS % (MANUAL) 1 % (0-2); EOSINOPHILS % (MANUAL) 2 % (0-6); LYMPHOCYTES % (MANUAL) 24 % (13-45); TOTAL CELLS COUNTED 100
[2017-03-27 15:48] LABS: ANISOCYTOSIS SLIGHT; PLATELET CLUMPS PRESENT; TOXIC GRANULATION SLIGHT; TOXIC VACUOLATION PRESENT
--- NOTE | 2017-03-27 16:57 | PDOC PROGRESS REPORT ---
Subjective Progress Note for:: 03/27/17 Subjective:: Patient sleeping at the time of evaluation. Appears that patient is awaiting for rehab approval but that she will need to get chemotherapy before she goes since will be able to get it while in rehab Reason For Visit: UTI, HYPERCALCEMIA Physical Exam Vital Signs: Temp Pulse Resp BP Pulse Ox 99.0 F 81 20 126/59 H 95 03/27/17 03:50 03/27/17 03:50 03/27/17 03:50 03/27/17 03:50 03/27/17 03:50 Intake & Output 03/25/17 03/26/17 03/27/17 06:59 06:59 06:59 Intake Total 1550 669 678 Output Total 0 0 Balance 1550 669 678 Weight 73.3 kg 55.6 kg General appearance: PRESENT: no acute distress, obese Head exam: PRESENT: atraumatic, normocephalic Eye exam: PRESENT: EOMI, PERRLA Respiratory exam: PRESENT: clear to auscultation zane. ABSENT: crackles, rhonchi Cardiovascular exam: PRESENT: RRR. ABSENT: diastolic murmur, systolic murmur Vascular exam: PRESENT: normal capillary refill GI/Abdominal exam: PRESENT: normal bowel sounds, soft. ABSENT: tenderness Results Laboratory Results: 03/26/17 16:20 03/26/17 15:47 03/26/17 03/26/17 03/26/17 05:39 05:39 15:47 WBC 2.6 L D RBC 3.29 L Hgb 8.9 L Hct 26.3 L MCV 80 MCH 27.2 MCHC 34.0 RDW 15.0 H Plt Count 186 Seg Neutrophils % Not Reportable Lymphocytes % Not Reportable Monocytes % Not Reportable Eosinophils % Not Reportable Basophils % Not Reportable Absolute Neutrophils Not Reportable Absolute Lymphocytes Not Reportable Absolute Monocytes Not Reportable Absolute Eosinophils Not Reportable Absolute Basophils Not Reportable Sodium 142.0 142.2 Potassium 4.1 4.4 Chloride 114 H 111 H Carbon Dioxide 16 L 18 L Anion Gap 12 13 BUN 20 21 H Creatinine 0.94 1.04 Est GFR ( Amer) > 60 > 60 Est GFR (Non-Af Amer) 58 L 51 L Glucose 140 H 157 H Calcium 8.1 L 8.4 Magnesium 1.9 Total Bilirubin 0.5 AST 43 H ALT 71 H Alkaline Phosphatase 158 H Total Protein 5.4 L Albumin 2.8 L 03/26/17 16:20 WBC 2.2 L RBC 3.23 L Hgb 8.6 L Hct 26.1 L MCV 81 MCH 26.7 L MCHC 33.1 RDW 14.9 H Plt Count 205 Seg Neutrophils % Not Reportable Lymphocytes % Not Reportable Monocytes % Not Reportable Eosinophils % Not Reportable Basophils % Not Reportable Absolute Neutrophils Not Reportable Absolute Lymphocytes Not Reportable Absolute Monocytes Not Reportable Absolute Eosinophils Not Reportable Absolute Basophils Not Reportable Sodium Potassium Chloride Carbon Dioxide Anion Gap BUN Creatinine Est GFR ( Amer) Est GFR (Non-Af Amer) Glucose Calcium Magnesium Total Bilirubin AST ALT Alkaline Phosphatase Total Protein Albumin 03/10/17 03/11/17 04:19 04:18 Creatine Kinase 121 CK-MB (CK-2) 0.90 Impressions: Abdomen Ultrasound 03/10/17 00:00 IMPRESSION: FATTY LIVER. CHOLELITHIASIS. PANCREAS PARTIALLY OR COMPLETELY OBSCURED. OTHERWISE NORMAL RIGHT UPPER QUADRANT ULTRASOUND. Abdomen/Pelvis CT 03/13/17 00:00 IMPRESSION: 1. Right breast mass. 2. 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 3. Questionable thickening the posterior bladder wall. 4. Endometrial canal is prominent for patient age. Pelvic ultrasound is recommended. 5. The left ilium is somewhat heterogeneous. Metastatic disease cannot be excluded. Body Scan Nuclear Medicine 03/13/17 00:00 IMPRESSION: Multiple foci of increased uptake worrisome for bony metastatic disease Chest CT 03/13/17 00:00 IMPRESSION: Large right breast mass with axillary adenopathy marked skin thickening highly concerning for neoplasm. No pulmonary or osseous metastases are seen in the chest. Chest X-Ray 03/20/17 07:22 IMPRESSION: NO SIGNIFICANT RADIOGRAPHIC FINDING IN THE CHEST. Assessment & Plan - Diagnosis (1) Hypercalcemia Is this a current diagnosis for this admission?: Yes Plan: Due to malignancy. Resolved and continue trending (2) Lobular adenocarcinoma Qualifiers: Laterality: right Qualified Code(s): C50.911 - Malignant neoplasm of unspecified site of right female breast Is this a current diagnosis for this admission?: Yes Plan: Patient was under the impression that cancer was painful. Will require to stay for the purpose of chemotherapy prior to going to rehab since will be able to get treatment once at the facility (3) Urinary tract infection Qualifiers: Urinary tract infection type: acute cystitis Hematuria presence: without hematuria Qualified Code(s): N30.00 - Acute cystitis without hematuria Is this a current diagnosis for this admission?: Yes Plan: Continue Levaquin p.o. for a total of 10 days (4) Leukopenia due to antineoplastic chemotherapy Is this a current diagnosis for this admission?: Yes Plan: To trend (5) Elevated LFTs Is this a current diagnosis for this admission?: Yes Plan: CT of the abdomen and pelvis negative. Likely elevated LFTs due to fatty liver disease (6) Hypokalemia Is this a current diagnosis for this admission?: Yes Plan: Resolved (7) Hypomagnesemia Is this a current diagnosis for this admission?: Yes Plan: Resolved (8) Anemia Qualifiers: Anemia type: unspecified type Qualified Code(s): D64.9 - Anemia, unspecified Is this a current diagnosis for this admission?: Yes Plan: To trend - Time Time Spent with patient: Less than 15 minutes Medications reviewed and adjusted accordingly: Yes Anticipated discharge: SNF Within: within 48 hours - Inpatient Certification Based on my medical assessment, after consideration of the patient's comorbidities, presenting symptoms, or acuity I expect that the services needed warrant INPATIENT care.: Yes I certify that my determination is in accordance with my understanding of Medicare's requirements for reasonable and necessary INPATIENT services [42 CFR 412.3e].: Yes Medical Necessity: Other
[2017-03-27] MEDS: MIRTAZAPINE 15 MG TABLET PO SCH (22:13)
[2017-03-28] MEDS ORDERED: MEGESTROL ACETATE SUSP 400 MG/10 ML UDCUP PO SCH (08:00)
[2017-03-28] MEDS: INSULIN GLARGINE,HUM.REC.ANLOG 300 UNIT/3 ML INSULN.PEN SUBCUT SCH (10:01)
[2017-03-28] MEDS: POLYETHYLENE GLYCOL 3350 POWDER 17 GM/1 PACKET PO SCH (10:02)
[2017-03-28] MEDS: LISINOPRIL 10 MG TABLET PO SCH (10:03)
[2017-03-28] MEDS: LEVOFLOXACIN 750 MG TABLET PO SCH (10:06)
[2017-03-28] MEDS: DOCUSATE SODIUM 100 MG CAPSULE PO SCH (10:07)
[2017-03-28] MEDS: AMLODIPINE BESYLATE 10 MG TABLET PO SCH (10:07)
[2017-03-28] MEDS: METOPROLOL SUCCINATE 50 MG TAB.SR.24H PO SCH (10:08)
[2017-03-28] MEDS: PREDNISOLONE ACETATE 1% OPH SUSP 5 ML OU SCH (10:08)
[2017-03-28] MEDS: INSULIN LISPRO 100 UNIT/ML 3 ML VIAL SUBCUT PRN (11:51)
--- NOTE | 2017-03-28 13:33 | PDOC DISCHARGE SUMMARY ---
General - Admit/Disc Date/PCP Admission Date/Primary Care Provider: 03/09/17 21:59 Discharge Date: 03/28/17 - Discharge Diagnosis (1) Urinary tract infection Is this a current diagnosis for this admission?: Yes (2) Hypercalcemia Is this a current diagnosis for this admission?: Yes (3) Lobular adenocarcinoma Is this a current diagnosis for this admission?: Yes (4) Leukopenia due to antineoplastic chemotherapy Is this a current diagnosis for this admission?: Yes (5) Elevated LFTs Is this a current diagnosis for this admission?: Yes (6) Hypokalemia Is this a current diagnosis for this admission?: Yes (7) Hypomagnesemia Is this a current diagnosis for this admission?: Yes (8) Anemia Is this a current diagnosis for this admission?: Yes (9) Dehydration Is this a current diagnosis for this admission?: Yes (11) Metabolic acidosis Is this a current diagnosis for this admission?: Yes (12) Diabetes mellitus type 2 in nonobese Is this a current diagnosis for this admission?: Yes - Additional Information Resuscitation Status: Full Code Home Medications: Ascorbic Acid [Vitamin C 500 mg Tablet] 250 mg PO DAILY 03/10/17 Aspirin [Adult Low Dose Aspirin EC] 81 mg PO DAILY 03/10/17 Cholecalciferol (Vitamin D3) [Vitamin D3 1000 Unit Tablet] 2,000 unit PO DAILY 03/10/17 Glipizide [Glucotrol 10 mg Tablet] 10 mg PO DAILY 03/10/17 Insulin Glargine,Hum.rec.anlog [Lantus Insulin 100 Unit/1 ml 10 ml] 40 units SQ QAM 03/10/17 Metformin HCl [Glucophage] 1,000 mg PO BIDBS 03/10/17 Metoprolol Tartrate [Lopressor 100 mg Tablet] 100 mg PO Q12 03/10/17 Pomegranate Fruit Extract [Pomegranate] 250 mg PO BID 03/10/17 Rivaroxaban [Xarelto 15 mg Tablet] 15 mg PO QHS 03/10/17 [place] Oil/[place]-3 Fatty Acids [[place] Oil-1,000 Capsule] 2 cap PO DAILY Ubidecarenone [Coq-10] 100 mg PO QID 03/10/17 Levofloxacin [Levaquin 750 mg Tablet] 750 mg PO DAILY #7 tablet 03/28/17 Mirtazapine [Remeron 15 mg Tablet] 7.5 mg PO QHS tablet 03/28/17 Polyethylene Glycol 3350 [Miralax Powder 17 gm/Packet] 17 gm PO DAILY powd.pack 03/28/17 Prednisolone Acetate [Inflamase 1% Oph Susp 5 ml] 1 drop OU BID bottle Prochlorperazine Maleate [Compazine 5 mg Tablet] 10 mg PO Q6HP PRN tablet 03/28 History of Present Illness History of Present Illness: JOSH VALERA is a 76 year old female with a past medical history of hypertension, hyperlipidemia, colon cancer, PE, who presented after being found on the ground after laying there for approximately 12 hours. Patient stated she fell at approximately 4AM on the day of admission onto her right scapula and mid back and had been unable to get the floor since that time. Her daughter found her at approximately 5 PM and contacted EMS who brought her to the hospital. At time prior to presentation patient only complained of a mild, dull, constant, burning pain to her right flank for three days. Nothing seemed to improve or worsen her pain. Patient stated that she was not certain if she hit her head or neck. Denies loss of consciousness. Patient stated that she has not taken any of her blood pressure medicines. She also stated that she felt quite dehydrated and had not been able to drink or eat anything all day. Patient reported intermittent left leg weakness and stated her leg just went out from under her when she fell. Family noticed "bruising" of her left breast. She was referred to the hospitalist service for uti and hypertensive urgency. Hospital Course Hospital Course: Patient presented with multiple issues which included hypertensive urgency. Outpatient regimen was restarted with further improvement and has remained stable. On admission urine culture was obtained and grew higher than 100,000 colony count of E. coli and Pseudomonas aeruginosa. Patient was transitioned to Levaquin p.o. She is to continue on this medication for 7 days following discharge. Recommend a repeat urine culture since patient is immunosuppressed. Hypercalcemia was deemed to be due to malignant process. Lesion in her right breast was evaluated through biopsy on March 15 and was consistent with lobular cancer. Dr. Iza Knight was consulted and patient underwent first chemotherapy regimen while in-house. Patient was treated with Neulast and counts remained stable. She is to get her second chemotherapy course by April 11. Patient is to follow-up with him within 1 week following discharge. Patient had remained stable however disposition was somewhat challenging as family was trying to decide which was the best course of action. Finally they opted for patient to to go for rehab and patient had been actively participating in physical therapy while hospitalized. She could have been discharged on 03/27 however there was a glitch in communication since this provider thought patient had to remain hospitalized in order to get her second chemotherapy course as she was not able to get it while or during rehab. Upon clarification and since patient was deemed to be stable opted then to proceed to discharge patient since she had achieved maximum benefit of hospitalization stay. Physical Exam Vital Signs: Temp Pulse Resp BP Pulse Ox 99.0 F 79 18 124/49 L 98 03/28/17 11:27 03/28/17 11:27 03/28/17 11:27 03/28/17 11:27 03/28/17 11:27 Intake & Output 03/27/17 03/28/17 03/29/17 06:59 06:59 06:59 Intake Total 915 696 118 Output Total 0 Balance 915 696 118 Weight 74.2 kg 74.8 kg General appearance: PRESENT: no acute distress, obese Head exam: PRESENT: atraumatic, normocephalic Eye exam: PRESENT: conjunctiva pink, EOMI, PERRLA Ear exam: PRESENT: normal external ear exam, TM's normal bilaterally Mouth exam: PRESENT: moist Neck exam: PRESENT: full ROM. ABSENT: JVD, tenderness Respiratory exam: PRESENT: clear to auscultation zane. ABSENT: crackles, rhonchi Cardiovascular exam: PRESENT: RRR. ABSENT: diastolic murmur, systolic murmur Vascular exam: PRESENT: normal capillary refill GI/Abdominal exam: PRESENT: normal bowel sounds, soft. ABSENT: tenderness Extremities exam: PRESENT: full ROM. ABSENT: joint swelling, pedal edema, tenderness Musculoskeletal exam: PRESENT: ambulatory, full ROM Neurological exam: PRESENT: alert, oriented to person, oriented to place, oriented to time Psychiatric exam: PRESENT: appropriate affect, normal mood Results Laboratory Results: 03/27/17 15:06 03/26/17 15:47 03/27/17 15:06 WBC 2.6 L RBC 3.04 L Hgb 8.0 L Hct 24.3 L MCV 80 MCH 26.4 L MCHC 32.9 RDW 15.3 H Plt Count 219 Seg Neutrophils % Not Reportable Lymphocytes % Not Reportable Monocytes % Not Reportable Eosinophils % Not Reportable Basophils % Not Reportable Absolute Neutrophils Not Reportable Absolute Lymphocytes Not Reportable Absolute Monocytes Not Reportable Absolute Eosinophils Not Reportable Absolute Basophils Not Reportable 03/10/17 03/11/17 04:19 04:18 Creatine Kinase 121 CK-MB (CK-2) 0.90 Impressions: Abdomen Ultrasound 03/10/17 00:00 IMPRESSION: FATTY LIVER. CHOLELITHIASIS. PANCREAS PARTIALLY OR COMPLETELY OBSCURED. OTHERWISE NORMAL RIGHT UPPER QUADRANT ULTRASOUND. Abdomen/Pelvis CT 03/13/17 00:00 IMPRESSION: 1. Right breast mass. 2. 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 3. Questionable thickening the posterior bladder wall. 4. Endometrial canal is prominent for patient age. Pelvic ultrasound is recommended. 5. The left ilium is somewhat heterogeneous. Metastatic disease cannot be excluded. Body Scan Nuclear Medicine 03/13/17 00:00 IMPRESSION: Multiple foci of increased uptake worrisome for bony metastatic disease Chest CT 03/13/17 00:00 IMPRESSION: Large right breast mass with axillary adenopathy marked skin thickening highly concerning for neoplasm. No pulmonary or osseous metastases are seen in the chest. Chest X-Ray 03/20/17 07:22 IMPRESSION: NO SIGNIFICANT RADIOGRAPHIC FINDING IN THE CHEST. Plan Discharge Plan: Transfer to rehab Time Spent: Less than 30 Minutes
[2017-03-28 16:26] VITALS: BP 134/58
[2017-03-28] MEDS ORDERED: NA PHOS,M-B/NA PHOS,DI-BA (ADULT) 133 ML ENEMA PR ONE (16:30)
== END 2017-03-28 18:06 | DRG 690 ==
LOC: ER 17:36 → EH 21:59 → 3N 03-10 00:31
PROVIDERS: ADMIT Family Medicine; ATTEND Family Medicine
PROC: 0HBT3ZX Excision of Right Breast, Percutaneous Approach, Diagnostic (ICD-10-PCS; 2017-03-15)
PROC: 3E03305 Introduction of Other Antineoplastic into Peripheral Vein, Percutaneous Approach (ICD-10-PCS; 2017-03-21)
PROC: 3E0234Z Introduction of Serum, Toxoid and Vaccine into Muscle, Percutaneous Approach (ICD-10-PCS; principal; 2017-03-28)
DX: N30.00 Acute cystitis without hematuria (principal); E87.2 Acidosis; C18.9 Malignant neoplasm of colon, unspecified; T81.4XXA Infection following a procedure, initial encounter; C50.211 Malignant neoplasm of upper-inner quadrant of right female breast; I16.0 Hypertensive urgency; E83.42 Hypomagnesemia; E87.6 Hypokalemia; E83.52 Hypercalcemia; B96.5 Pseudomonas (aeruginosa) (mallei) (pseudomallei) as the cause of diseases classified elsewhere; B96.20 Unspecified Escherichia coli [E. coli] as the cause of diseases classified elsewhere; E11.65 Type 2 diabetes mellitus with hyperglycemia; K59.09 Other constipation; N61.0 Mastitis without abscess; Y84.8 Other medical procedures as the cause of abnormal reaction of the patient, or of later complication, without mention of misadventure at the time of the procedure; Y92.230 Patient room in hospital as the place of occurrence of the external cause; D70.1 Agranulocytosis secondary to cancer chemotherapy; R74.8 Abnormal levels of other serum enzymes; D64.9 Anemia, unspecified; E86.0 Dehydration; I10 Essential (primary) hypertension; R62.7 Adult failure to thrive; W19.XXXA Unspecified fall, initial encounter; Y93.9 Activity, unspecified; Y92.009 Unspecified place in unspecified non-institutional (private) residence as the place of occurrence of the external cause; Z86.711 Personal history of pulmonary embolism; Z17.0 Estrogen receptor positive status [ER+]; Z23 Encounter for immunization; Z60.2 Problems related to living alone; Z79.2 Long term (current) use of antibiotics; Z79.01 Long term (current) use of anticoagulants; Z79.84 Long term (current) use of oral hypoglycemic drugs; Z79.899 Other long term (current) drug therapy
CPT/HCPCS: 36415; 71010; 71260; 74177; 76705; 78306; 80048; 80053; 80069; 80074; 80076; 80202; 81001; 82306; 82330; 82397; 82550; 82553; 82565; 82652; 82962; 83036; 83735; 83970; 84443; 85025; 85027; 87040; 87086; 87088; 87186; 88305; 88341; 88342; 90686; 96361; 96365; 96367; 96413; 96415; 99284; A9561; G8978-GP; G8979-GP; G8987-GO; G8988-GO; J0360; J0692; J0696; J1100; J1170; J1815; J1940; J2405; J2505; J3370; J3475; J3480; J3489; J3490; J7030; J7050; J7060; J9070; J9171; Q9969; S0119

== ENCOUNTER 2017-04-05 01:49 | Emergency (ER) | payer MEDICARE, OTHER ==
--- NOTE | 2017-04-05 01:56 | ER Document Report ---
ED General - General Stated Complaint: UNRESPONSIVE Time Seen by Provider: 04/05/17 01:54 Notes: Patient is a 76-year-old female who presents with complaint of being found unresponsive. She states at the [facility]. Nursing sugar blood sugar was 43. To give her glucagon. Her blood sugar came up to over 100. Even with her blood sugar being over 100 she was still unresponsive and therefore paramedics brought her here. No recent fevers of the [facility] summary: However, she was recently discharged from the hospital after staying for over a week. She was initially admitted at that time due to hypertensive urgency and a urinary tract infection. She was also found to have breast cancer with metastasis. During that stay she was seen by oncology. She was started chemotherapy. While chemotherapy she became very anemic. At time of discharge from the hospital hemoglobin was 8. They decided to hold her chemotherapy due to the anemia. Upon arrival to the ER patient is completely unresponsive and lying in bed. On unable to do any further history from the patient herself. TRAVEL OUTSIDE OF THE [place] IN LAST 30 DAYS: No - Related Data Allergies/Adverse Reactions: Penicillins Allergy (Verified 04/05/17 03:34) Past Medical History - Social History Smoking Status: Unknown if Ever Smoked Frequency of alcohol use: None Drug Abuse: None Family History: Reviewed & Not Pertinent - Past Medical History Cardiac Medical History: Reports: Hx Hypercholesterolemia, Hx Hypertension, Hx Pulmonary Embolism Endocrine Medical History: Reports: Hx Diabetes Mellitus Type 2 Renal/ Medical History: Denies: Hx Peritoneal Dialysis Malignancy Medical History: Reports: Hx Colorectal Cancer Psychiatric Medical History: Denies: Hx Depression Past Surgical History: Reports: Hx Bowel Surgery - colon re-section, Hx Cardiac Catheterization, Other - Port insertion and removal partial colectomy - Immunizations Hx Diphtheria, Pertussis, Tetanus Vaccination: Yes Review of Systems - Review of Systems -: Yes ROS unobtainable due to patient's medical condition - Patient is unresponsive. Physical Exam - Vital signs Vitals: Resp Pulse Ox 14 100 04/05/17 01:53 04/05/17 01:53 - Notes Notes: General Appearance: Patient lying limp in the bed and unresponsive. She is breathing on her own. She does have gag reflex. She does withdraw her arms to painful stim light. Vitals: reviewed, See vital signs table. Head: no swelling or tenderness to the head Eyes: PERRL, EOMI, Conjuctiva clear Mouth: No decreasd moisture Throat: No tonsillar inflammation, No airway obstruction Lungs: No wheezing, No rales, No rhonci, No accessory muscle use, good air exchange bilaterally. Heart: Tachycardic rate, Regular rythm, No murmur, no rub Abdomen: Normal BS, soft, No rigidity, No abdominal tenderness, No guarding, no rebound, no abdominal masses, no organomegaly Rectal: Patient has no sacral decubital ulcers. She does have some slight redness over the parietal area but no actual skin breakdown. No signs of infection cellulitis. Patient has no stool in the rectum. There is no gross blood. Extremities: strength 5/5 in all extremities, good pulses in all extremities, no swelling or tenderness in the extremities, no edema. Skin: warm, dry, appropriate color, no rash Neuro: Unresponsive. Responds to painful stimuli. Pupils are equal and reactive. Course - Re-evaluation Re-evalutation: 04/05/17 02:31 On reevaluation the patient is more alert but very confused and is rolling around in the bed. Daughter is at bedside. Daughter said this is not typical of her at all. Patient blood pressure is low. We are giving her IV fluid bolus. 04/05/17 05:40 After the IV fluid boluses his blood pressure was much improved. She does have elevated lactic acid possible pneumonia on chest x-ray. This suggests to me that she probably has sepsis. Her troponin is awaited above the acute [place] cut off point. I did go back and speak with the daughter. Talked to the daughter at length about blood and elevated troponin can indicate. I informed her this could be elements of a heart attack; however, this could just be related to her being septic and recently having hypotension. I told her that a flexographic press set up operator may not necessarily go forward with a heart cath and that they may not want to do further intervention on her based on her history of having metastatic cancer and already being ill. Despite my conversation with the daughter she still adamant that she must be a facility that has all options that would care for her mother including cardiology services that could perform heart catheterization if they deemed it would be of benefit to her. I therefore called [facility] the daughter requested. I spoke with Dr. Sanford Romeo who agrees to accept the patient for transfer. I just reevaluate the patient again spoke with the daughter again. Patient is doing well and her blood pressure is remaining stable at this time. We will continue monitoring the patient until she is transferred. Dictation of this chart was performed using voice recognition software; therefore, there may be some unintended grammatical errors. - Vital Signs Vital signs: Temp Pulse Resp BP Pulse Ox 97.5 F 17 145/84 H 99 04/05/17 01:55 04/05/17 04:00 04/05/17 03:11 04/05/17 04:00 - Laboratory Result Diagrams: 04/05/17 02:00 04/05/17 02:00 Laboratory results interpreted by me: 04/05/17 04/05/17 04/05/17 02:00 02:00 02:10 WBC 15.6 H RBC 2.77 L Hgb 7.4 L Hct 23.4 L MCH 26.8 L MCHC 31.7 L RDW 17.0 H Seg Neutrophils % 88.9 H Lymphocytes % 7.1 L Absolute Neutrophils 13.9 H VBG pH 7.25 L VBG HCO3 14.9 L Sodium 150.8 H Chloride 122 H Carbon Dioxide 11 L BUN 36 H Creatinine 1.37 H Est GFR ( Amer) 45 L Est GFR (Non-Af Amer) 37 L Glucose 136 H Lactic Acid Calcium 7.7 L Total Protein 5.1 L Albumin 2.7 L Urine Protein Urine Ascorbic Acid Crossmatch 04/05/17 04/05/17 04/05/17 02:10 02:20 04:15 WBC RBC Hgb Hct MCH MCHC RDW Seg Neutrophils % Lymphocytes % Absolute Neutrophils VBG pH VBG HCO3 Sodium Chloride Carbon Dioxide BUN Creatinine Est GFR ( Amer) Est GFR (Non-Af Amer) Glucose Lactic Acid 5.8 H Calcium Total Protein Albumin Urine Protein 30 H Urine Ascorbic Acid 40 H Crossmatch See Detail - EKG Interpretation by Me Additional EKG results interpreted by me: 04/05/17 04:58 EKG is reviewed and interpreted by me. EKG shows sinus tachycardia with a rate of [address] segment elevation. She does have some ST segment depression in the anterolateral precordial leads. No ST segment elevation. DE interval is within normal range. QRS duration QTc intervals are borderline. ST segment depression is new in comparison to EKG from from June 06, 2014. 04/05/17 05:00 Discharge - Discharge Clinical Impression: Elevated troponin Anemia Qualifiers: Anemia type: unspecified type Qualified Code(s): D64.9 - Anemia, unspecified Pneumonia Qualifiers: Pneumonia type: due to unspecified organism Laterality: left Lung location: unspecified part of lung Qualified Code(s): J18.9 - Pneumonia, unspecified organism Condition: Stable Disposition:
[2017-04-05] MEDS ORDERED: NORMAL SALINE 1000 ML 1,000 ML IV ONE (02:14)
[2017-04-05 02:30] LABS: VENOUS BLOOD BASE EXCESS -11.5 mmol/L; VENOUS BLOOD HCO3 14.9 mmol/L (20-32); VENOUS BLOOD PCO2 35.1 mmHg (35-63); VENOUS BLOOD PH 7.25 (7.30-7.42)
[2017-04-05 02:36] LABS: ALANINE AMINOTRANSFERASE 42 U/L (9-52); ALBUMIN 2.7 g/dL (3.5-5.0); ALKALINE PHOSPHATASE 113 U/L (38-126); ANION GAP 18 (5-19); ASPARTATE AMINO TRANSFERASE 23 U/L (14-36); BILIRUBIN,DIRECT 0.1 mg/dL (0.0-0.4); BILIRUBIN,TOTAL 0.3 mg/dL (0.2-1.3); BLOOD UREA NITROGEN 36 mg/dL (7-20); CALCIUM 7.7 mg/dL (8.4-10.2); CARBON DIOXIDE 11 mmol/L (22-30); CHLORIDE 122 mmol/L (98-107); CREATINE KINASE 71 U/L (30-135); CREATININE RESULT 1.37 mg/dL (0.52-1.25); GLUCOSE 136 mg/dL (75-110); SODIUM 150.8 mmol/L (137-145); TOTAL PROTEIN 5.1 g/dL (6.3-8.2)
--- NOTE | 2017-04-05 02:40 | RADIOLOGY REPORT (SQ) ---
EXAM DESCRIPTION: CHEST SINGLE VIEW CLINICAL HISTORY: altered mental status COMPARISON: 03/20/2017 FINDINGS: Single frontal view of the chest. Atherosclerotic calcification aortic arch. Heart is not enlarged. Low lung volumes. Left basilar airspace opacity. No displaced rib fractures identified. Leads overlie the chest. Upper abdominal soft tissues are unremarkable. IMPRESSION: 1. Left basilar airspace opacity concerning for pneumonia.
[2017-04-05 02:42] LABS: HGB HCT DIFFERENCE -1.2
[2017-04-05 02:44] LABS: ABSOLUTE LYMPHOCYTES (AUTO) 1.1 10^3/uL (0.5-4.7); ABSOLUTE MONOCYTES (AUTO) 0.5 10^3/uL (0.1-1.4); ABSOLUTE NEUT (AUTO) 13.9 10^3/uL (1.7-8.2)
[2017-04-05 02:45] LABS: BASOPHILS % (AUTO) 0.2 % (0-2); EOSINOPHILS % (AUTO) 0.3 % (0-6); LYMPHOCYTES % (AUTO) 7.1 % (13-45); MEAN CORPUSCULAR HEMOGLOBIN 26.8 pg (27.0-33.4); MEAN CORPUSCULAR HGB CONC 31.7 g/dL (32.0-36.0); MEAN CORPUSCULAR VOLUME 84 fl (80-97); MONOCYTES % (AUTO) 3.5 % (3-13); SEGMENTED NEUTROPHILS % (AUTO) 88.9 % (42-78)
[2017-04-05 02:46] LABS: HEMATOCRIT 23.4 % (36.0-47.0); HEMOGLOBIN 7.4 g/dL (12.0-15.5); RED BLOOD COUNT 2.77 10^6/uL (3.72-5.28); WHITE BLOOD COUNT 15.6 10^3/uL (4.0-10.5)
[2017-04-05 02:51] LABS: AMORPHOUS SEDIMENT,URINE TRACE /HPF; APPEARANCE,URINE SLIGHTLY-CLOUDY; BILIRUBIN,URINE NEGATIVE (NEGATIVE); GLUCOSE, URINE NEGATIVE (NEGATIVE); KETONES,URINE NEGATIVE (NEGATIVE); LEUKOCYTE ESTERASE,URINE NEGATIVE (NEGATIVE); NITRITE,URINE NEGATIVE (NEGATIVE); PROTEIN,URINE 30 mg/dL (NEGATIVE); URINE SPECIFIC GRAVITY 1.018; UROBILINOGEN,URINE NEGATIVE mg/dL (<2.0)
[2017-04-05] MEDS ORDERED: VANCOMYCIN HCL INJ 1000 MG VIAL IV ONE (03:23)
[2017-04-05] MEDS ORDERED: LEVOFLOXACIN 750 MG/D5W RTU 750 MG/150 ML RTUPB IV ONE (03:28)
[2017-04-05] MEDS ORDERED: NORMAL SALINE 250 ML IV PRN (03:29)
--- NOTE | 2017-04-05 03:46 | RADIOLOGY REPORT (SQ) ---
EXAM DESCRIPTION: CT HEAD WITHOUT CLINICAL HISTORY: altered mental status COMPARISON: 06/06/2014 TECHNIQUE: Axial CT of the head obtained from the skull apex to the skull base without contrast. FINDINGS: No acute intracranial hemorrhage identified. No mass, mass effect, shift of the midline, abnormal extra-axial fluid collection or CT evidence of acute ischemic change identified. The ventricular system and sulcal spaces are mildly enlarged compatible with mild cerebral atrophy. Scattered areas of hypodensity throughout the supratentorial white matter are nonspecific and may be related to chronic small vessel ischemic change. The visualized paranasal sinuses and the mastoids are clear. No skull fracture identified. Visualized orbits and globes are unremarkable. Atherosclerotic calcification of the intracranial internal carotid arteries. DLP: 1316.28 mGy-cm IMPRESSION: 1. No acute intracranial abnormality by CT criteria. This exam was performed according to our departmental dose-optimization program, which includes automated exposure control, adjustment of the mA and/or kV according to patient size and/or use of iterative reconstruction technique.
--- NOTE | 2017-04-05 08:46 | EKG REPORT ---
SEVERITY:- ABNORMAL ECG - SINUS TACHYCARDIA ATRIAL PREMATURE COMPLEX PROBABLE POSTERIOR INFARCT NONSPECIFIC T ABNORMALITIES, LATERAL LEADS : Confirmed by: Rajesh Garza 05-Apr-2017 08:46:14
[2017-04-05 10:38] VITALS: BP 129/64
== END 2017-04-05 10:38 | disposition short-term general hospital (02) ==
LOC: ER 01:49
DX: J18.9 Pneumonia, unspecified organism (principal); D64.9 Anemia, unspecified; R79.89 Other specified abnormal findings of blood chemistry; E11.649 Type 2 diabetes mellitus with hypoglycemia without coma; R55 Syncope and collapse; C50.919 Malignant neoplasm of unspecified site of unspecified female breast; C79.9 Secondary malignant neoplasm of unspecified site; Z79.899 Other long term (current) drug therapy
CPT/HCPCS: 93005; 99291; 96361; 96365; 96367; 86900; 86901; 36415; 87040; 82553; 36430; 86850; 82962; 82550; 85025; 80053; 81001; 84484; 86920; 82803; 83605; 71010; 70450; 93010; P9016; J7030; J7050; J3370; J1956

== ENCOUNTER → 2017-05-28 | Outpatient (CLI) | payer MEDICARE, OTHER ==
--- NOTE | 2017-05-29 09:04 | RADIOLOGY REPORT (SQ) ---
CORRECTED REPORT EXAM DESCRIPTION: PET CT SKULL/THIGH COMPLETED DATE/TIME: 05/28/2017 7:24 pm REASON FOR STUDY: C50.811 MALIGNANT NEOPLASM OF OVERLP SITES RIGHT FEMALE BREAST COMPARISON: CT chest abdomen and pelvis 03/13/2017 RADIONUCLIDE AND DOSE: 11 mCi F18 FDG The route of agent administration: Intravenous FASTING BLOOD SUGAR: 163 mg/dl CONTRAST TYPE AND DOSE: No CT contrast given. TECHNIQUE: Blood glucose level was verified. Above dose of FDG was injected intravenously. 2-D segmented attenuation correction images were obtained from the base of the skull to the midthighs. Noncontrast CT images were obtained for attenuation correction and fusion with emission images. CT images were performed without oral or intravenous contrast and are not sensitive for parenchymal lesions. A series of overlapping emission PET images were obtained. Images reviewed and manipulated at independent work station by the radiologist. Images stored on PACS. LIMITATIONS: None. FINDINGS: HEAD AND NECK: No areas of abnormal metabolic activity in the soft tissues of the head and neck. CHEST: The right breast is diffusely enlarged, replaced with tumor. There is skin thickening. This is compatible with diagnosis of inflammatory breast cancer. SUV throughout the right breast ranges from 5.2 to 5.9. There are multiple right axillary lymph nodes about 2 cm in size, metabolically active with SUV 3.2 to 3.4. There is patchy lung parenchymal consolidation at both posterior costophrenic sulci right greater than left. This is non metabolic, SUV 1.1 or less ABDOMEN AND PELVIS: No areas of abnormal metabolic activity in the abdomen or pelvis. Expected physiologic activity is present in the genitourinary system and bowel. PROXIMAL LOWER EXTREMITIES: No areas of abnormal metabolic activity in the soft tissues of the lower extremities. BONES: Diffuse bony metastatic disease throughout the cervicothoracic and lumbar spine, bony pelvis, with SUV 2.[address] FINDINGS: Healing right posterior 9th through 12th rib fractures. Left hemicolectomy. IVC filter. Pancreatic calcifications. Atherosclerotic arterial vascular calcification. Degenerative disc changes throughout the spine OTHER: Liver background SUV 1.9. 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 TECHNICAL DOCUMENTATION: JOB ID: [id number] [employer]- All Rights Reserved [facility]
== END ==
LOC: RAD 16:16
PROVIDERS: ATTEND Internal Medicine Medical Oncology
DX: C50.811 Malignant neoplasm of overlapping sites of right female breast (principal); C79.51 Secondary malignant neoplasm of bone
CPT/HCPCS: 78815; A9552

== ENCOUNTER 2017-06-10 09:55 | Inpatient (IN) | payer MEDICARE, OTHER ==
[2017-06-10] MEDS ORDERED: NITROFURANTOIN MONOHYD/M-CRYST 100 MG CAPSULE PO ONE (11:51)
[2017-06-10] MEDS ORDERED: ONDANSETRON 4 MG TAB.RAPDIS PO ONE (11:51)
[2017-06-10] MEDS ORDERED: PHENAZOPYRIDINE HCL 200 MG TABLET PO ONE (11:51)
--- NOTE | 2017-06-10 11:59 | ER Document Report ---
ED Medical Screen (RME) - General Chief Complaint: Lower Abdominal Pain Stated Complaint: ABDOMINAL PAIN Time Seen by Provider: 06/10/17 11:49 Mode of Arrival: Wheelchair Information source: Patient TRAVEL OUTSIDE OF THE [place] IN LAST 30 DAYS: No - HPI Onset: Yesterday Onset/Duration: Sudden Context: Undergoing treatment for cancer. Last chemotherapy approximately 3 weeks ago, uncomplicated. Quality of pain: Pressure Severity: Mild Associated Symptoms: Nausea, Vomiting - x 2 YESTERDAY Exacerbated by: Denies Relieved by: Denies Similar symptoms previously: Yes - NOT RECENT Recently seen / treated by doctor: Yes - ONCOLOGY - Related Data Smoking: Non-smoker Frequency of alcohol use: None Drug Abuse: None Allergies/Adverse Reactions: Penicillins Allergy (Verified 06/10/17 09:55) Past Medical History - General Information source: Patient, Relative - Social History Cigarette use (# per day): No Chew tobacco use (# tins/day): No Frequency of alcohol use: None Drug Abuse: None Lives with: Family Family history: Reviewed & Not Pertinent - Past Medical History Cardiac Medical History: Reports: Hx Hypercholesterolemia, Hx Hypertension, Hx Pulmonary Embolism Endocrine Medical History: Reports: Hx Diabetes Mellitus Type 2 Renal/ Medical History: Denies: Hx Peritoneal Dialysis Malignancy Medical History: Reports: Hx Colorectal Cancer Psychiatric Medical History: Reports: None Denies: Hx Depression Past Surgical History: Reports: Hx Bowel Surgery - colon re-section, Hx Cardiac Catheterization, Other - Port insertion and removal partial colectomy - Immunizations Hx Diphtheria, Pertussis, Tetanus Vaccination: Yes History of Influenza Vaccine for 01/2017 - 06/2017 Season: No Review of Systems - Review of Systems Constitutional: denies: Chills, Fever EENT: No symptoms reported Cardiovascular: No symptoms reported Respiratory: No symptoms reported Gastrointestinal: See HPI, Nausea, Vomiting Genitourinary: See HPI Female Genitourinary: Post menopausal Musculoskeletal: No symptoms reported Skin: No symptoms reported Neurological/Psychological: No symptoms reported Physical Exam - Vital signs Vitals: Temp Pulse Resp BP Pulse Ox 98.6 F 92 16 122/63 99 06/10/17 10:23 06/10/17 10:23 06/10/17 10:23 06/10/17 10:23 06/10/17 10:23 Interpretation: Normal. No: Tachycardic, Tachypneic, Febrile - General General appearance: Appears well, Alert In distress: None - HEENT Head: Normocephalic Eyes: Pale conjunctiva Conjunctiva: Normal Ears: Normal Nasal: Normal Mouth/Lips: Normal Mucous membranes: Normal Pharynx: Normal Neck: Normal - Respiratory Respiratory status: No respiratory distress - Cardiovascular Rhythm: Regular - Abdominal Inspection: Normal Bowel sounds: Hypoactive Tenderness: Tender - SUPRAPUBIC - Back Back: Normal - Extremities General upper extremity: Normal inspection General lower extremity: Normal inspection - Neurological Neuro grossly intact: Yes Cognition: Normal Orientation: AAOx4 - Psychological Associated symptoms: Normal affect, Normal mood - Skin Skin Temperature: Warm Skin Moisture: Dry Skin Color: Normal Skin Turgor: Elastic Course - Vital Signs Vital signs: Temp Pulse Resp BP Pulse Ox 98.6 F 92 16 122/63 99 06/10/17 10:23 06/10/17 10:23 06/10/17 10:23 06/10/17 10:23 06/10/17 10:23
[2017-06-10 12:28] LABS: HEMATOCRIT 34.2 % (36.0-47.0); HEMOGLOBIN 10.8 g/dL (12.0-15.5); MEAN CORPUSCULAR HGB CONC 31.6 g/dL (32.0-36.0); MEAN CORPUSCULAR VOLUME 88 fl (80-97); PLATELET COUNT 318 10^3/uL (150-450); RED BLOOD COUNT 3.87 10^6/uL (3.72-5.28); RED CELL DISTRIBUTION WIDTH 15.5 % (11.5-14.0); WHITE BLOOD COUNT 12.9 10^3/uL (4.0-10.5)
[2017-06-10 12:34] LABS: ALANINE AMINOTRANSFERASE 45 U/L (9-52); ALBUMIN 3.7 g/dL (3.5-5.0); ALKALINE PHOSPHATASE 113 U/L (38-126); ANION GAP 16 (5-19); ASPARTATE AMINO TRANSFERASE 22 U/L (14-36); BILIRUBIN,TOTAL 0.4 mg/dL (0.2-1.3); BLOOD UREA NITROGEN 32 mg/dL (7-20); CALCIUM 9.6 mg/dL (8.4-10.2); CARBON DIOXIDE 12 mmol/L (22-30); CHLORIDE 121 mmol/L (98-107); GLUCOSE 203 mg/dL (75-110); POTASSIUM 5.5 mmol/L (3.6-5.0); SODIUM 148.9 mmol/L (137-145)
[2017-06-10 12:52] LABS: ABSOLUTE LYMPHOCYTES# (MANUAL) 2.2 10^3/uL (0.5-4.7); ABSOLUTE MONOCYTES # (MANUAL) 0.5 10^3/uL (0.1-1.4); ABSOLUTE NEUTROPHILS# (MANUAL) 10.2 10^3/uL (1.7-8.2); BASOPHILS % (MANUAL) 0 % (0-2); EOSINOPHILS % (MANUAL) 0 % (0-6); LYMPHOCYTES % (MANUAL) 17 % (13-45); MONOCYTES % (MANUAL) 4 % (3-13); SEGMENTED NEUTROPHILS % (MAN) 67 % (42-78); TOTAL CELLS COUNTED 100
[2017-06-10 12:54] LABS: ANISOCYTOSIS SLIGHT; POLYCHROMASIA SLIGHT; TOXIC GRANULATION 3+
[2017-06-10 12:55] LABS: BAND NEUTROPHILS % (MANUAL) 12 % (3-5); OVALOCYTES SLIGHT; PLATELET CLUMPS PRESENT; PLATELET COMMENT ADEQUATE; POIKILOCYTOSIS SLIGHT
--- NOTE | 2017-06-10 13:23 | ER Document Report ---
ED General - General Chief Complaint: Lower Abdominal Pain Stated Complaint: ABDOMINAL PAIN Time Seen by Provider: 06/10/17 11:49 Mode of Arrival: Wheelchair Notes: Patient is complaining of trouble urinating for the past couple of weeks. She says it hurts, herrera, stings, and only goes a small amount at a time. She is prone to getting UTIs. Has not seen any blood in her urine. Has not run any fever. She also says that she is not eating well. She gets full very easily. Feeling weak and dizzy. She vomited twice yesterday, none today. No diarrhea. Last bowel movement yesterday. Denies abdominal pains. Denies chest pains. Denies difficulty breathing or shortness of breath. Patient has a history of right breast cancer diagnosed in February. She is on chemotherapy, her most recent dose being May 24. She has not had any other treatments for her breast cancer. PMH: IDDM. TRAVEL OUTSIDE OF THE [place] IN LAST 30 DAYS: No - Related Data Allergies/Adverse Reactions: Penicillins Allergy (Verified 06/10/17 09:55) Past Medical History - General Information source: Patient, Relative - Social History Smoking Status: Never Smoker Cigarette use (# per day): No Chew tobacco use (# tins/day): No Frequency of alcohol use: None Drug Abuse: None Lives with: Family Family History: Reviewed & Not Pertinent Patient has suicidal ideation: No Patient has homicidal ideation: No - Past Medical History Cardiac Medical History: Reports: Hx Hypercholesterolemia, Hx Hypertension, Hx Pulmonary Embolism Endocrine Medical History: Reports: Hx Diabetes Mellitus Type 1, Hx Diabetes Mellitus Type 2 Malignancy Medical History: Reports: Hx Breast Cancer - Right breast. currently receiving chemotherapy, Hx Colorectal Cancer Psychiatric Medical History: Reports: None Denies: Hx Depression Past Surgical History: Reports: Hx Bowel Surgery - colon re-section, Hx Cardiac Catheterization, Other - Port insertion and removal partial colectomy - Immunizations Hx Diphtheria, Pertussis, Tetanus Vaccination: Yes Review of Systems - Review of Systems Notes: REVIEW OF SYSTEMS: CONSTITUTIONAL : Denies fever. EENT: Denies eye, ear, nose or mouth or throat pain or other symptoms. CARDIOVASCULAR: Denies chest pain. RESPIRATORY: Denies cough, chest congestion, or shortness of breath. Breast: Swelling and pain in the right breast from cancer GASTROINTESTINAL: See HPI. GENITOURINARY: See HPI. Complains of swelling in irritation and pain in the vulva area. MUSCULOSKELETAL: Denies back or neck pain. Denies joint pain or swelling. SKIN: Denies skin lesions. NEUROLOGICAL: Denies LOC or altered mental status. Denies headache. Denies sensory loss or motor deficits. ALL OTHER SYSTEMS REVIEWED AND NEGATIVE. Physical Exam - Vital signs Vitals: Temp Pulse Resp BP Pulse Ox 98.6 F 92 16 122/63 99 06/10/17 10:23 06/10/17 10:23 06/10/17 10:23 06/10/17 10:23 06/10/17 10:23 Interpretation: Normal - Notes Notes: PHYSICAL EXAMINATION: GENERAL: Well-appearing, in no acute distress. Vital signs all essentially normal. HEAD: Atraumatic, normocephalic. NECK: Normal range of motion, supple. LUNGS: Breath sounds clear and equal bilaterally. Breasts: Patient's right breast is enlarged, but daughter says it is not as big as it was. It is very firm and hard to the touch. I do not feel fluctuance like fluid presents. The right breast has some dark coloration to the overlying skin. Again, daughter says that is better than it was before chemotherapy. HEART: Regular rate and rhythm without murmurs. ABDOMEN: Soft, nontender. No guarding or rebound. No masses. Pelvic area. Most of the vulva is swollen diffusely and erythematous, likely yeast infection. BACK: No tenderness throughout entire back. EXTREMITIES: Normal range of motion without pain. NEUROLOGICAL: Normal speech, normal gait. Normal sensory, motor, and reflex exams. Awake, alert, and oriented x3. Cranial nerves normal. PSYCH: Normal mood, normal affect. SKIN: Warm, dry, no rashes. Course - Re-evaluation Re-evalutation: 06/10/17 15:19 Labs show patient has a pretty significant UTI. She also has elevated sodium and chloride levels. I do not think she is septic at this time. Her lactic acid is 1.6. Spoke with hospitalist who will admit the patient for IV fluids and hydration and antibiotics. 06/10/17 18:44 Nurse made me aware that patient had emesis of red liquid. Patient has some on the front of her outfit as well as some in a barf bag. It is red in color. Patient has not had anything related to eat or drink. She has no history of any gastrointestinal bleeding. I notified Dr. Walton, hospitalist in charge today, made her aware. A CBC and a gastric culture being ordered. Vital signs are being checked. 06/10/17 18:58 Vital signs are all normal. Blood pressure is up a little bit. - Vital Signs Vital signs: Temp Pulse Resp BP Pulse Ox 98.6 F 92 16 122/63 99 06/10/17 16:19 06/10/17 10:23 06/10/17 10:23 06/10/17 10:23 06/10/17 10:23 - Laboratory Result Diagrams: 06/10/17 12:05 06/10/17 12:05 Laboratory results interpreted by me: 06/10/17 06/10/17 06/10/17 12:05 12:05 13:30 WBC 12.9 H Hgb 10.8 L Hct 34.2 L MCHC 31.6 L RDW 15.5 H Band Neutrophils % 12 H Abs Neuts (Manual) 10.2 H Sodium 148.9 H Potassium 5.5 H Chloride 121 H Carbon Dioxide 12 L BUN 32 H Creatinine 1.79 H Est GFR ( Amer) 33 L Est GFR (Non-Af Amer) 27 L Glucose 203 H Urine Protein 100 H Urine Glucose (UA) 50 H Urine Ketones TRACE H Urine Blood SMALL H Urine Nitrite POSITIVE H Urine Urobilinogen 4.0 H Ur Leukocyte Esterase TRACE H Urine Ascorbic Acid 20 H Discharge - Discharge Clinical Impression: Vulvovaginitis, Hypernatremia UTI (urinary tract infection) Qualifiers: Urinary tract infection type: acute cystitis Condition: Fair Disposition: ADMITTED INPATIENT Admitting Provider: Hospitalist Unit Admitted: Telemetry
[2017-06-10] MEDS ORDERED: CEFTRIAXONE INJ 1000 MG VIAL IV ONE (13:44)
[2017-06-10 13:58] LABS: APPEARANCE,URINE TURBID; BILIRUBIN,URINE NEGATIVE (NEGATIVE); COLOR,URINE ORANGE; GLUCOSE, URINE 50 mg/dL (NEGATIVE); KETONES,URINE TRACE mg/dL (NEGATIVE); LEUKOCYTE ESTERASE,URINE TRACE (NEGATIVE); NITRITE,URINE POSITIVE (NEGATIVE); PROTEIN,URINE 100 mg/dL (NEGATIVE); URINE SPECIFIC GRAVITY 1.018
[2017-06-10] MEDS ORDERED: 1/2 NORMAL SALINE 1,000 ML IV ONE (15:13)
[2017-06-10] MEDS ORDERED: TEMAZEPAM 15 MG CAPSULE PO PRN (15:29)
[2017-06-10] MEDS ORDERED: 1/2 NORMAL SALINE 1,000 ML IV PRN (15:29)
[2017-06-10] MEDS ORDERED: ACETAMINOPHEN 325 MG TABLET PO PRN (15:29)
[2017-06-10] MEDS ORDERED: OXYCODONE-ACETAMINOPHEN 5-325 MG TABLET PO PRN (15:29)
[2017-06-10] MEDS ORDERED: DEXTROSE 50%-WATER 25 GM/50 ML DISP.SYRIN IV PRN ×2 (15:35)
[2017-06-10] MEDS ORDERED: DEXTROSE 40% GEL 15 GM TUBE PO PRN ×2 (15:35)
[2017-06-10] MEDS ORDERED: GLUCAGON,HUMAN RECOMB 1 MG INJ IM PRN (15:35)
--- NOTE | 2017-06-10 16:36 | PDOC H&P ---
History of Present Illness Admission Date/PCP: 06/10/17 15:30 LISA TORRES MD Patient complains of: Burning with urination,no appetite and fatigue History of Present Illness: JOSH VALERA is an 76 year old female, complaining of trouble urinating for the past couple of weeks. She says it hurts, herrera, stings, and only goes a small amount at a time. She is prone to getting UTIs. Has not seen any blood in her urine. Has not run any fever. She also says that she is not eating well. She gets full very easily. Feeling weak and dizzy. She vomited twice yesterday, none today. No diarrhea. Last bowel movement yesterday. Denies abdominal pains. Denies chest pains. Denies difficulty breathing or shortness of breath. Patient has a history of right breast cancer diagnosed in February. She is on chemotherapy, her most recent dose being May 24. She has not had any other treatments for her breast cancer. Past Medical History Cardiac Medical History: Reports: Hyperlipidema, Hypertension, Pulmonary Embolism Pulmonary Medical History: Reports: None EENT Medical History: Reports: None Neurological Medical History: Reports: None Endocrine Medical History: Reports: Diabetes Mellitus Type 1, Diabetes Mellitus Type 2 Renal/ Medical History: Reports: None Malignancy Medical History: Reports: Breast Cancer - Right breast. currently receiving chemotherapy, Colorectal Cancer GI Medical History: Reports: Gastroesophageal Reflux Disease Musculoskeltal Medical History: Reports: None Skin Medical History: Reports: None Psychiatric Medical History: Reports: None Denies: Depression Traumatic Medical History: Reports: None Hematology: Reports: Anemia Infectious Medical History: Reports: None Past Surgical History Past Surgical History: Reports: Cardiac Catheterization, Other - Port insertion and removal partial colectomy Social History Information Source: Patient Lives with: Family Smoking Status: Never Smoker Frequency of Alcohol Use: None Hx Recreational Drug Use: No Drugs: None Hx Prescription Drug Abuse: No - Advance Directive Resuscitation Status: Full Code Surrogate healthcare decision maker:: Daughter, is her medical POA Family History Family History: DM, Hypertension, Malignancy Parental Family History Reviewed: Yes Children Family History Reviewed: Yes Sibling(s) Family History Reviewed.: Yes Medication/Allergy Allergies/Adverse Reactions: Penicillins Allergy (Verified 06/10/17 09:55) Review of Systems Constitutional: PRESENT: anorexia, chills, fatigue, weakness, weight loss Eyes: ABSENT: visual disturbances Ears: ABSENT: hearing changes Cardiovascular: ABSENT: chest pain, dyspnea on exertion, edema, orthropnea, palpitations Respiratory: ABSENT: cough, hemoptysis Gastrointestinal: PRESENT: abdominal pain, constipation. ABSENT: diarrhea, hematemesis, hematochezia, nausea, vomiting Genitourinary: PRESENT: difficulty urinating, dysuria Musculoskeletal: PRESENT: back pain Integumentary: ABSENT: rash, wounds Neurological: ABSENT: abnormal gait, abnormal speech, confusion, dizziness, focal weakness, syncope Psychiatric: ABSENT: anxiety, depression, homidical ideation, suicidal ideation Endocrine: ABSENT: cold intolerance, heat intolerance, polydipsia, polyuria Hematologic/Lymphatic: ABSENT: easy bleeding, easy bruising Allergic/Immunologic: PRESENT: as per HPI Physical Exam Vital Signs: Temp Pulse Resp BP Pulse Ox 98.6 F 92 16 122/63 99 06/10/17 10:23 06/10/17 10:23 06/10/17 10:23 06/10/17 10:23 06/10/17 10:23 General appearance: PRESENT: no acute distress, thin, well-developed Head exam: PRESENT: atraumatic, normocephalic Eye exam: PRESENT: conjunctiva pink, EOMI, PERRLA. ABSENT: scleral icterus Ear exam: PRESENT: normal external ear exam Mouth exam: PRESENT: dry mucosa, neck supple, tongue midline Teeth exam: PRESENT: edentulous Neck exam: PRESENT: full ROM, other. ABSENT: carotid bruit, JVD, lymphadenopathy, thyromegaly Respiratory exam: PRESENT: clear to auscultation zane, decreased breath sounds, symmetrical, unlabored. ABSENT: rales, rhonchi, wheezes Cardiovascular exam: PRESENT: RRR. ABSENT: diastolic murmur, rubs, systolic murmur Pulses: PRESENT: normal dorsalis pedis pul Vascular exam: PRESENT: normal capillary refill GI/Abdominal exam: PRESENT: normal bowel sounds, soft. ABSENT: distended, guarding, mass, organolmegaly, rebound, tenderness Rectal exam: PRESENT: deferred Extremities exam: PRESENT: full ROM. ABSENT: calf tenderness, clubbing, pedal edema Musculoskeletal exam: PRESENT: ambulatory, full ROM Neurological exam: PRESENT: alert, awake, oriented to person, oriented to place , oriented to time, oriented to situation, CN II-XII grossly intact. ABSENT: motor sensory deficit Psychiatric exam: PRESENT: appropriate affect, flat affect, normal mood. ABSENT : homicidal ideation, suicidal ideation Skin exam: PRESENT: dry, intact, warm. ABSENT: cyanosis, rash Assessment & Plan - Diagnosis (1) Hypernatremia Is this a current diagnosis for this admission?: Yes Plan: Secondary to dehydration. Will gently hydrate 1/2NS and monitor (2) Urinary tract infection Qualifiers: Urinary tract infection type: acute cystitis Is this a current diagnosis for this admission?: Yes Plan: Will start ceftriazoned daily pending urine culture (3) Vulvovaginitis Is this a current diagnosis for this admission?: Yes Plan: Will cover with diflucan (4) Adult failure to thrive syndrome Is this a current diagnosis for this admission?: Yes Plan: Dietary consult and nutritional supplements. Due to protein caloric malnutrition and anorexia (5) Constipation Qualifiers: Constipation type: other constipation type Qualified Code(s): K59.09 - Other constipation (6) DVT prophylaxis Is this a current diagnosis for this admission?: Yes (7) Dehydration Is this a current diagnosis for this admission?: Yes (8) Essential hypertension Is this a current diagnosis for this admission?: Yes - Time Time Spent: 50 to 70 Minutes Critical Time spent with patient: 15-24 minutes Medications reviewed and adjusted accordingly: Yes
[2017-06-10] MEDS ORDERED: ENOXAPARIN SODIUM INJ 30 MG/0.3 ML DISP.SYRIN SUBCUT ONE (17:00)
[2017-06-10] MEDS ORDERED: ONDANSETRON HCL INJ/PF 4 MG/2 ML SDV IV ONE (18:35)
[2017-06-10] MEDS: DOCUSATE SODIUM 100 MG CAPSULE PO SCH (19:14)
[2017-06-10 20:21] LABS: HEMATOCRIT 31.1 % (36.0-47.0); MEAN CORPUSCULAR HEMOGLOBIN 28.2 pg (27.0-33.4); MEAN CORPUSCULAR HGB CONC 32.1 g/dL (32.0-36.0); MEAN CORPUSCULAR VOLUME 88 fl (80-97); PLATELET COUNT 266 10^3/uL (150-450); RED BLOOD COUNT 3.54 10^6/uL (3.72-5.28); RED CELL DISTRIBUTION WIDTH 15.9 % (11.5-14.0); WHITE BLOOD COUNT 10.3 10^3/uL (4.0-10.5)
[2017-06-10 20:41] LABS: ABSOLUTE LYMPHOCYTES# (MANUAL) 0.8 10^3/uL (0.5-4.7); ABSOLUTE MONOCYTES # (MANUAL) 0.6 10^3/uL (0.1-1.4); ABSOLUTE NEUTROPHILS# (MANUAL) 8.9 10^3/uL (1.7-8.2); BAND NEUTROPHILS % (MANUAL) 3 % (3-5); BASOPHILS % (MANUAL) 0 % (0-2); EOSINOPHILS % (MANUAL) 0 % (0-6); LYMPHOCYTES % (MANUAL) 8 % (13-45); MONOCYTES % (MANUAL) 6 % (3-13); MYELOCYTES % (MANUAL) 1 % (0); NUCLEATED RED BLOOD CELLS 1 /100 WBC (0); SEGMENTED NEUTROPHILS % (MAN) 76 % (42-78); TOTAL CELLS COUNTED 100
[2017-06-10 20:45] LABS: ANISOCYTOSIS SLIGHT; OVALOCYTES SLIGHT; PLATELET COMMENT ADEQUATE; POIKILOCYTOSIS SLIGHT; SCHISTOCYTES SLIGHT
[2017-06-10 20:47] LABS: METAMYELOCYTES % (MANUAL) 6 % (0)
[2017-06-10 20:49] LABS: POLYCHROMASIA SLIGHT; TOXIC GRANULATION 2+
[2017-06-10] MEDS: INSULIN REG, HUMAN 100 UNIT/ML 3 ML VIAL (PYX) SUBCUT PRN (22:49)
[2017-06-11] MEDS: ONDANSETRON HCL INJ/PF 4 MG/2 ML SDV IV PRN (05:23)
[2017-06-11] MEDS: LANSOPRAZOLE 30 MG TAB.RAP.DR PO SCH (06:19)
[2017-06-11] MEDS ORDERED: 1/2 NORMAL SALINE 1,000 ML IV PRN (08:27)
[2017-06-11 09:14] LABS: ALANINE AMINOTRANSFERASE 27 U/L (9-52); ALBUMIN 3.1 g/dL (3.5-5.0); ALKALINE PHOSPHATASE 93 U/L (38-126); ANION GAP 13 (5-19); ASPARTATE AMINO TRANSFERASE 29 U/L (14-36); BILIRUBIN,DIRECT 0.2 mg/dL (0.0-0.4); BILIRUBIN,TOTAL 0.4 mg/dL (0.2-1.3); BLOOD UREA NITROGEN 28 mg/dL (7-20); CALCIUM 8.8 mg/dL (8.4-10.2); CARBON DIOXIDE 11 mmol/L (22-30); CHLORIDE 121 mmol/L (98-107); GLUCOSE 235 mg/dL (75-110); POTASSIUM 4.9 mmol/L (3.6-5.0); SODIUM 145.4 mmol/L (137-145); TOTAL PROTEIN 6.2 g/dL (6.3-8.2)
[2017-06-11 09:19] LABS: HEMATOCRIT 30.7 % (36.0-47.0); HEMOGLOBIN 9.8 g/dL (12.0-15.5); MEAN CORPUSCULAR HEMOGLOBIN 28.5 pg (27.0-33.4); MEAN CORPUSCULAR VOLUME 89 fl (80-97); PLATELET COUNT 251 10^3/uL (150-450); RED BLOOD COUNT 3.45 10^6/uL (3.72-5.28); RED CELL DISTRIBUTION WIDTH 15.2 % (11.5-14.0); WHITE BLOOD COUNT 11.4 10^3/uL (4.0-10.5)
--- NOTE | 2017-06-11 09:24 | RADIOLOGY REPORT (SQ) ---
EXAM DESCRIPTION: CT ABD/PELVIS NO ORAL OR IV COMPLETED DATE/TIME: 06/11/2017 8:58 am REASON FOR STUDY: vomiting ARF COMPARISON: 03/13/2017 TECHNIQUE: CT scan of the abdomen and pelvis performed without intravenous or oral contrast. Images reviewed with lung, soft tissue, and bone windows. Reconstructed coronal and sagittal MPR images revi ewed. All images stored on PACS. All CT scanners at this facility use dose modulation, iterative reconstruction, and/or weight based d osing when appropriate to reduce radiation dose to as low as reasonably achievable (ALARA). [facility]: Dose Right [facility]: CareDose [facility]: Dose Right [facility]: Teradose 4D [facility]: Smart Stupeflix RADIATION DOSE: CT Rad equipment meets quality standard of care and radiation dose reduction techniq ues were employed. CTDIvol: 7.5 mGy. DLP: 403 mGy-cm.mGy. LIMITATIONS: None. FINDINGS: LOWER CHEST: Unchanged right breast mass. NON-CONTRASTED LIVER, SPLEEN, ADRENALS: Evaluation limited by lack of IV contrast. No identified sign ificant masses. PANCREAS: No masses. No peripancreatic inflammatory changes. GALLBLADDER: No identified stones by CT criteria. No inflammatory changes to suggest cholecystitis. RIGHT KIDNEY AND URETER: No suspicious masses. Assessment limited by lack of IV contrast. No signif icant calcifications. No hydronephrosis or hydroureter. LEFT KIDNEY AND URETER: No suspicious masses. Assessment limited by lack of IV contrast. No signifi cant calcifications. No hydronephrosis or hydroureter. AORTA AND RETROPERITONEUM: IVC filter. No aneurysm. No retroperitoneal masses or adenopathy. BOWEL AND PERITONEAL CAVITY: Anastomosis left upper quadrant. No obvious masses or inflammatory montgomery ges. No free fluid. APPENDIX: Not visualized. PELVIS, BLADDER, AND ABDOMINAL WALL:No abnormal masses. No free fluid. Bladder normal. BONES: Known metastatic disease, not significantly changed. OTHER: No other significant finding. IMPRESSION: 1. No evidence of bowel obstruction or other acute finding. 2. Known right breast mass and bone metastasis. COMMENT: Quality ID # [id number]: Final reports with documentation of one or more dose reduction techniques (e.g., Automated exposure control, adjustment of the mA and/or kV according to patient size, use of iterative reconstruction technique) TECHNICAL DOCUMENTATION: JOB ID: [id number]- All Rights Reserved
[2017-06-11] MEDS: FLUCONAZOLE 100 MG TABLET PO SCH (09:30)
[2017-06-11] MEDS: DOCUSATE SODIUM 100 MG CAPSULE PO SCH ×2 (09:30→21:19)
[2017-06-11] MEDS ORDERED: METOCLOPRAMIDE HCL INJ/PF 10 MG/2 ML SDV IV ONE (09:30)
[2017-06-11] MEDS: ENOXAPARIN SODIUM INJ 30 MG/0.3 ML DISP.SYRIN SUBCUT SCH (09:30)
[2017-06-11 09:54] LABS: ABSOLUTE LYMPHOCYTES# (MANUAL) 1.3 10^3/uL (0.5-4.7); ABSOLUTE MONOCYTES # (MANUAL) 1.6 10^3/uL (0.1-1.4); ABSOLUTE NEUTROPHILS# (MANUAL) 8.6 10^3/uL (1.7-8.2); BAND NEUTROPHILS % (MANUAL) 7 % (3-5); BASOPHILS % (MANUAL) 0 % (0-2); EOSINOPHILS % (MANUAL) 0 % (0-6); LYMPHOCYTES % (MANUAL) 11 % (13-45); METAMYELOCYTES % (MANUAL) 2 % (0); MONOCYTES % (MANUAL) 14 % (3-13); SEGMENTED NEUTROPHILS % (MAN) 65 % (42-78); TOTAL CELLS COUNTED 100
[2017-06-11 09:57] LABS: OVALOCYTES SLIGHT; PLATELET COMMENT ADEQUATE; POIKILOCYTOSIS SLIGHT
[2017-06-11 09:58] LABS: TOXIC GRANULATION 2+
[2017-06-11 10:02] LABS: MYELOCYTES % (MANUAL) 1 % (0)
--- NOTE | 2017-06-11 10:03 | PDOC PROGRESS REPORT ---
Subjective Progress Note for:: 06/11/17 Subjective:: Patient still complaining of vomiting She has no abdominal pain but constant nausea she has no fever no chills no shortness of breath Reason For Visit: UTI,FLACO,HYPERNATREMIA Physical Exam Vital Signs: Temp Pulse Resp BP Pulse Ox 98.5 F 95 18 164/87 H 100 06/11/17 06:10 06/10/17 19:03 06/11/17 07:01 06/11/17 07:31 06/11/17 07:31 Intake & Output 06/10/17 06/11/17 06/12/17 00:59 00:59 00:59 Weight 62.8 kg General appearance: PRESENT: mild distress Head exam: PRESENT: atraumatic, normocephalic Eye exam: PRESENT: conjunctiva pink, EOMI, PERRLA. ABSENT: scleral icterus Neck exam: ABSENT: carotid bruit, JVD, lymphadenopathy, thyromegaly Respiratory exam: PRESENT: clear to auscultation zane. ABSENT: rales, rhonchi, wheezes Cardiovascular exam: PRESENT: RRR. ABSENT: diastolic murmur, rubs, systolic murmur Pulses: PRESENT: normal dorsalis pedis pul GI/Abdominal exam: PRESENT: normal bowel sounds, soft. ABSENT: distended, guarding, mass, organolmegaly, rebound, tenderness Extremities exam: PRESENT: full ROM. ABSENT: calf tenderness, clubbing, pedal edema Neurological exam: PRESENT: alert, awake, oriented to person, oriented to place , oriented to time, oriented to situation, CN II-XII grossly intact. ABSENT: motor sensory deficit Results Laboratory Results: 06/11/17 08:15 06/10/17 06/11/17 06/11/17 19:55 08:15 08:15 WBC 10.3 RBC 3.54 L Hgb 10.0 L Hct 31.1 L MCV 88 MCH 28.2 MCHC 32.1 RDW 15.9 H Plt Count 266 Seg Neutrophils % Not Reportable Not Reportable Lymphocytes % Not Reportable Not Reportable Monocytes % Not Reportable Not Reportable Eosinophils % Not Reportable Not Reportable Basophils % Not Reportable Not Reportable Absolute Neutrophils Not Reportable Not Reportable Absolute Lymphocytes Not Reportable Not Reportable Absolute Monocytes Not Reportable Not Reportable Absolute Eosinophils Not Reportable Not Reportable Absolute Basophils Not Reportable Not Reportable Sodium 145.4 H Potassium 4.9 Chloride 121 H Carbon Dioxide 11 L Anion Gap 13 BUN 28 H Creatinine 1.35 H Est GFR ( Amer) 46 L Est GFR (Non-Af Amer) 38 L Glucose 235 H Calcium 8.8 Total Bilirubin 0.4 AST 29 ALT 27 Alkaline Phosphatase 93 Total Protein 6.2 L Albumin 3.1 L Impressions: Abdomen/Pelvis CT 06/11/17 08:26 IMPRESSION: 1. No evidence of bowel obstruction or other acute finding. 2. Known right breast mass and bone metastasis. Assessment & Plan - Diagnosis (1) Acute renal failure Qualifiers: Acute renal failure type: unspecified Qualified Code(s): N17.9 - Acute kidney failure, unspecified Is this a current diagnosis for this admission?: Yes Plan: Creatinine is improved ; continue hydration (2) Intractable vomiting Qualifiers: Nausea presence: with nausea Is this a current diagnosis for this admission?: Yes Plan: We will treat the patient with Reglan Continue PPI CT abdomen and pelvis without contrast was ordered (3) Metastatic breast cancer Is this a current diagnosis for this admission?: Yes (4) Urinary tract infection Qualifiers: Urinary tract infection type: acute cystitis Is this a current diagnosis for this admission?: Yes Plan: Continue ceftriaxone (5) Metabolic acidosis Is this a current diagnosis for this admission?: Yes Plan: Metabolic acidosis with normal anion gap Likely secondary to intractable vomiting , renal failure, and possibly RTA will initiate bicarb supplementation p.o. - Time Time Spent with patient: obtain vbg's Time Spent with patient: 25-34 minutes
[2017-06-11] MEDS ORDERED: SODIUM BICARBONATE 650 MG TABLET PO ONE (11:00)
[2017-06-11] MEDS: INSULIN REG, HUMAN 100 UNIT/ML 3 ML VIAL (PYX) SUBCUT PRN ×3 (12:23→23:39)
--- NOTE | 2017-06-11 13:13 | RADIOLOGY REPORT (SQ) ---
EXAM DESCRIPTION: CT HEAD WITHOUT COMPLETED DATE/TIME: 06/11/2017 12:59 pm REASON FOR STUDY: AMS COMPARISON: 04/05/2017. TECHNIQUE: Axial images acquired through the brain without intravenous contrast. Images reviewed wi th bone, brain and subdural windows. Images stored on PACS. All CT scanners at this facility use dose modulation, iterative reconstruction, and/or weight based d osing when appropriate to reduce radiation dose to as low as reasonably achievable (ALARA). [facility]: Dose Right [facility]: CareDose [facility]: Dose Right [facility]: Teradose 4D [facility]: Smart Qazzow RADIATION DOSE: CT Rad equipment meets quality standard of care and radiation dose reduction techniq ues were employed. CTDIvol: 64.6 mGy. DLP: 1034 mGy-cm. mGy. LIMITATIONS: None. FINDINGS: VENTRICLES: Normal size and contour. CEREBRUM: There are confluent areas of decreased attenuation in subcortical and periventricular white matter consistent with chronic white matter change. Basal ganglion calcification noted. CEREBELLUM: No masses. No hemorrhage. No alteration of density. No evidence for acute infarction. EXTRAAXIAL SPACES: No fluid collections. No masses. ORBITS AND GLOBE: No intra- or extraconal masses. Normal contour of globe without masses. CALVARIUM: No fracture. PARANASAL SINUSES: Minimal mucosal thickening and maxillary sinuses ,left greater than right SOFT TISSUES: No mass or hematoma. OTHER: No other significant finding. IMPRESSION: CHRONIC SINUSITIS. CHRONIC WHITE MATTER CHANGES. OTHERWISE, NORMAL BRAIN CT WITHOUT CO NTRAST. EVIDENCE OF ACUTE STROKE: NO. COMMENT: Quality ID # [id number]: Final reports with documentation of one or more dose reduction techniques (e.g., Automated exposure control, adjustment of the mA and/or kV according to patient size, use of iterative reconstruction technique) TECHNICAL DOCUMENTATION: JOB ID: [id number] SC-69 2010 [employer]- All Rights Reserved
[2017-06-11] MEDS: DEXTROSE 5%-1/2 NORMAL SALINE 1,000 ML IV PRN ×2 (13:30→23:16)
--- NOTE | 2017-06-11 14:52 | Progress Note ---
Provider Note Provider Note: Patient had a TIA-like episode during which she became unresponsive. Patient had labored respirations she appeared totally flaccid; Blood sugar was above 100 She had not received any opiates She was rushed to CAT scan CT of the brain was unremarkable ; upon returning patient's mentation is back to normal ; she has no recollection of the event ? Was it TIA-like episode We will schedule the patient for an MRI of the brain ultrasound of the carotids and an echocardiogram Keep her in IMCU Add MEND exams
--- NOTE | 2017-06-11 16:23 | RADIOLOGY REPORT (SQ) ---
EXAM DESCRIPTION: MRI HEAD WITHOUT COMPLETED DATE/TIME: 06/11/2017 4:09 pm REASON FOR STUDY: TIA like episode COMPARISON: CT from earlier today. Bone scan from late 2017. TECHNIQUE: Multiplanar imaging includes non-contrasted T1, T2, FLAIR, and diffusion with ADC map seq uences. Images stored on PACS. LIMITATIONS: None. FINDINGS: ANATOMY: Heterogeneous signal in the clivus. Heterogeneous marrow signal in the upper cer vical region as well. Probably related to osseous metastatic disease. Slight thickening of ligament s posterior to the odontoid process without suggestion of compromise of the cervical canal. CSF SPACES: Atrophy induced prominence of ventricles and CSF spaces. CEREBRUM: High signal intensity lesions scattered throughout the white matter on FLAIR imaging with d istribution suggesting micro-vascular ischemic changes. No evidence of hemorrhage, mass, or extraaxi al fluid collection. POSTERIOR FOSSA: Normal cerebellum. Mild fluid in the mastoid air cells, right greater than left. DIFFUSION IMAGING: Negative for acute or sub-acute infarction. ORBITS: No masses. Globes normal. PARANASAL SINUSES: No fluid levels. Mucosa normal. OTHER: No other significant finding. IMPRESSION: 1. Chronic intracranial changes include atrophy and small vessel disease. No acute CVA. 2. Heterogeneous bone changes in the upper cervical spine and at the skullbase. Presumably related to osseous metastatic disease. Patient has history of abnormal bone and PET scans with breast cance r. EVIDENCE OF ACUTE STROKE: NO. TECHNICAL DOCUMENTATION: JOB ID: [id number] [employer]- All Rights Reserved
[2017-06-11] MEDS: HYDRALAZINE HCL INJ/PF 20 MG/1 ML SDV IV PRN (17:25)
[2017-06-11] MEDS: METOCLOPRAMIDE HCL INJ/PF 10 MG/2 ML SDV IV SCH (21:21)
[2017-06-11] MEDS: SODIUM BICARBONATE 650 MG TABLET PO SCH (23:50)
[2017-06-12] MEDS: DEXTROSE 5%-1/2 NORMAL SALINE 1,000 ML IV PRN ×2 (02:59→15:20)
[2017-06-12] MEDS: METOCLOPRAMIDE HCL INJ/PF 10 MG/2 ML SDV IV SCH ×4 (04:10→17:25)
[2017-06-12] MEDS: LANSOPRAZOLE 30 MG TAB.RAP.DR PO SCH (06:22)
[2017-06-12 06:38] LABS: ANION GAP 10 (5-19); BLOOD UREA NITROGEN 24 mg/dL (7-20); CALCIUM 8.5 mg/dL (8.4-10.2); CARBON DIOXIDE 15 mmol/L (22-30); CHLORIDE 119 mmol/L (98-107); GLUCOSE 194 mg/dL (75-110); SODIUM 143.9 mmol/L (137-145)
[2017-06-12] MEDS: HYDRALAZINE HCL INJ/PF 20 MG/1 ML SDV IV PRN (08:28)
[2017-06-12] MEDS: ENOXAPARIN SODIUM INJ 30 MG/0.3 ML DISP.SYRIN SUBCUT SCH (10:09)
[2017-06-12] MEDS: DOCUSATE SODIUM 100 MG CAPSULE PO SCH ×2 (10:09→17:26)
[2017-06-12] MEDS: SODIUM BICARBONATE 650 MG TABLET PO SCH ×2 (10:09→21:30)
[2017-06-12] MEDS: FLUCONAZOLE 100 MG TABLET PO SCH (10:09)
[2017-06-12] MEDS: INSULIN REG, HUMAN 100 UNIT/ML 3 ML VIAL (PYX) SUBCUT PRN ×4 (10:10→22:14)
[2017-06-12] MEDS: ONDANSETRON HCL INJ/PF 4 MG/2 ML SDV IV PRN (12:37)
--- NOTE | 2017-06-12 14:01 | RADIOLOGY REPORT (SQ) ---
EXAM DESCRIPTION: CAROTID DOPPLER COMPLETED DATE/TIME: 06/12/2017 1:51 pm REASON FOR STUDY: TIA COMPARISON: None. TECHNIQUE: Grayscale ultrasound, Doppler velocity and spectra, and color Doppler images acquired of the extra-cranial carotid and vertebral arteries. Images stored on PACS. LIMITATIONS: None. FINDINGS: RIGHT CAROTID CCA Velocities: Within normal limits. ICA Velocities Peak systolic 0.94 m/s. End diastolic 0.2 . M/s. Proximal ICA/CCA peak systolic ratio 1.3. Mild plaquing. No significant stenosis. LEFT CAROTID CCA Velocities: Within normal limits. ICA Velocities Peak systolic 1.07 m/s. End diastolic 0.19 m/s. Proximal ICA/CCA peak systolic ratio 1.3. Mild plaquing. No significant stenosis. VERTEBRAL ARTERIES: Antegrade flow. Normal waveforms. SUBCLAVIAN ARTERIES: No finding. OTHER: No other significant finding. IMPRESSION: NO HEMODYNAMICALLY SIGNIFICANT STENOSIS. COMMENT: Quality ID #[id number]: Velocity criteria are extrapolated from the diameter data as defined by t he Society of Radiologists in Ultrasound Consensus Conference. Radiology 2003: 229; 340-346. TECHNICAL DOCUMENTATION: JOB ID: [id number] [employer]- All Rights Reserved
[2017-06-12 14:30] LABS: PATH REVIEW PATHOLOGIST REVIEWED
[2017-06-12 14:31] LABS: PATH REVIEW PATHOLOGIST REVIEWED
[2017-06-12 14:31] LABS: PATH REVIEW PATHOLOGIST REVIEWED
--- NOTE | 2017-06-12 15:03 | PDOC PROGRESS REPORT ---
Subjective Progress Note for:: 06/12/17 Subjective:: Patient is seen on rounds. She is in bed sleeping. She awakens easily to verbal stimuli. She is oriented times 3 . She denies any chest pain, shortness of breath or dyspnea at rest. She is still occasionally nauseated, with no vomiting or diarrhea. She has mild lower abdominal pain. She denies any arthralgias or myalgias Reason For Visit: TIA,ARF,METASTATIC CA Physical Exam Vital Signs: Temp Pulse Resp BP Pulse Ox 98.0 F 122 H 18 150/82 H 99 06/12/17 11:49 06/12/17 13:59 06/12/17 11:49 06/12/17 13:31 06/12/17 11:49 Intake & Output 06/11/17 06/12/17 06/13/17 06:59 06:59 06:59 Intake Total 425 237 Balance 425 237 Weight 62.8 kg 58.7 kg General appearance: PRESENT: no acute distress, thin, well-developed Head exam: PRESENT: atraumatic, normocephalic Eye exam: PRESENT: conjunctiva pink, EOMI, PERRLA. ABSENT: scleral icterus Ear exam: PRESENT: normal external ear exam Mouth exam: PRESENT: dry mucosa Teeth exam: PRESENT: edentulous Neck exam: ABSENT: carotid bruit, JVD, lymphadenopathy, thyromegaly Respiratory exam: PRESENT: clear to auscultation zane. ABSENT: rales, rhonchi, wheezes Cardiovascular exam: PRESENT: RRR. ABSENT: diastolic murmur, rubs, systolic murmur Pulses: PRESENT: normal dorsalis pedis pul Vascular exam: PRESENT: normal capillary refill GI/Abdominal exam: PRESENT: normal bowel sounds, soft. ABSENT: distended, guarding, mass, organolmegaly, rebound, tenderness Rectal exam: PRESENT: deferred Extremities exam: PRESENT: full ROM. ABSENT: calf tenderness, clubbing, pedal edema Neurological exam: PRESENT: alert, awake, oriented to person, oriented to place , oriented to time, oriented to situation, CN II-XII grossly intact. ABSENT: motor sensory deficit Psychiatric exam: PRESENT: appropriate affect, normal mood. ABSENT: homicidal ideation, suicidal ideation Skin exam: PRESENT: dry, intact, warm. ABSENT: cyanosis, rash Results Laboratory Results: 06/11/17 08:15 06/12/17 05:31 06/12/17 05:31 Sodium 143.9 Potassium 4.0 Chloride 119 H Carbon Dioxide 15 L Anion Gap 10 BUN 24 H Creatinine 1.21 Est GFR ( Amer) 52 L Est GFR (Non-Af Amer) 43 L Glucose 194 H Calcium 8.5 Impressions: Abdomen/Pelvis CT 06/11/17 08:26 IMPRESSION: 1. No evidence of bowel obstruction or other acute finding. 2. Known right breast mass and bone metastasis. Head CT 06/11/17 12:12 IMPRESSION: CHRONIC SINUSITIS. CHRONIC WHITE MATTER CHANGES. OTHERWISE, NORMAL BRAIN CT WITHOUT CONTRAST. EVIDENCE OF ACUTE STROKE: NO. Head MRI 06/11/17 14:52 IMPRESSION: 1. Chronic intracranial changes include atrophy and small vessel disease. No acute CVA. 2. Heterogeneous bone changes in the upper cervical spine and at the skullbase. Presumably related to osseous metastatic disease. Patient has history of abnormal bone and PET scans with breast cancer. EVIDENCE OF ACUTE STROKE: NO. Carotid Doppler Study 06/12/17 00:00 IMPRESSION: NO HEMODYNAMICALLY SIGNIFICANT STENOSIS. Assessment & Plan - Diagnosis (1) Hypernatremia Is this a current diagnosis for this admission?: Yes Plan: Secondary to dehydration. Will gently hydrate 1/2NS and monitor (2) Urinary tract infection Qualifiers: Urinary tract infection type: acute cystitis Is this a current diagnosis for this admission?: Yes Plan: Urine culture grew only candidiasis (3) Vulvovaginitis Is this a current diagnosis for this admission?: Yes Plan: Will cover with diflucan (4) Adult failure to thrive syndrome Is this a current diagnosis for this admission?: Yes (5) Constipation Qualifiers: Constipation type: other constipation type Qualified Code(s): K59.09 - Other constipation (6) DVT prophylaxis Is this a current diagnosis for this admission?: Yes (7) Dehydration Is this a current diagnosis for this admission?: Yes (8) Essential hypertension Is this a current diagnosis for this admission?: Yes (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 Most likely from dehydration and poor intake - Time Time Spent with patient: 25-34 minutes Medications reviewed and adjusted accordingly: Yes
[2017-06-12] MEDS: 1/2 NORMAL SALINE 1,000 ML IV PRN (17:26)
--- NOTE | 2017-06-12 19:37 | XCELERA REPORT ---
[address] [address] Transthoracic Echocardiogram Report Name: JOSH VALERA Age: 76 yrs Gender: Female : 1940 Patient Status: Inpatient Patient Location: [address] [place] [address] Study Date: 06/12/2017 10:28 AM Height: 65 in Weight: 138 lb BSA: 1.7 m2 Procedure: A complete two-dimensional transthoracic echocardiogram was performed (2D, M-mode, spectral and color flow Doppler). The study was technically difficult with many images being suboptimal in quality. Reason For Study: TIA Ordering Physician: YVES NEWBERRY Performed By: Lyssa Benson Interpretation Summary The left ventricular ejection fraction is normal. There is borderline concentric left ventricular hypertrophy. Doppler measurements suggest pseudonormalized left ventricular relaxation, which is associated with grade II/IV or mild to moderate diastolic dysfunction The left ventricle is grossly normal size. Wall motion cannot be accurately commented on, but no definite regional wall motion abnormalities noted. The right ventricular systolic function is normal. The left atrium is mildly dilated. The right atrium is normal in size There is a trace amount of mitral regurgitation There is no mitral valve stenosis. There is no aortic valve stenosis No aortic regurgitation is present. There is a trace or physiologic amount of tricuspid regurgitation Tricuspid regurgitation jet envelope not well defined to measure RV systolic pressure accurately. The aortic root is not well visualized. The inferior vena cava appeared normal and decreased > 50% with respiration (RAP 5-10 mmHg) There is no pericardial effusion. MMode/2D Measurements & Calculations RVDd: 3.3 cm LVIDd: 4.5 cm FS: 34.1 % Ao root diam: 2.4 cm IVSd: 1.0 cm LVIDs: 3.0 cm EDV(Teich): 94.4 ml LVPWd: 0.96 cm ESV(Teich): 34.8 ml Ao root area: 4.6 cm2 EF(Teich): 63.2 % Doppler Measurements & Calculations MV E max aleta: MV dec slope: Ao V2 max: LV V1 max P.0 cm/sec 158.3 cm/sec 8.4 mmHg MV A max aleta: 198.0 cm/sec2 Ao max PG: LV V1 max: 119.5 cm/sec MV dec time: 10.0 mmHg 144.6 cm/sec MV E/A: 0.61 0.37 sec PA V2 max: TR max aleta: 112.6 cm/sec 177.2 cm/sec PA max P.1 mmHgTR max P.6 mmHg Left Ventricle The left ventricle is grossly normal size. There is borderline concentric left ventricular hypertrophy. The left ventricular ejection fraction is normal. Doppler measurements suggest pseudonormalized left ventricular relaxation, which is associated with grade II/IV or mild to moderate diastolic dysfunction. Wall motion cannot be accurately commented on, but no definite regional wall motion abnormalities noted. Right Ventricle The right ventricle is grossly normal size. There is normal right ventricular wall thickness. The right ventricular systolic function is normal. Atria The right atrium is normal in size. The left atrium is mildly dilated. Mitral Valve There is mild mitral leaflet calcification. There is mild to moderate mitral annular calcification. There is no mitral valve stenosis. There is a trace amount of mitral regurgitation. Aortic Valve The aortic valve is not well visualized secondary to technical limitations. There is no aortic valve stenosis. No aortic regurgitation is present. Tricuspid Valve The tricuspid valve is not well visualized secondary to technical limitations. There is no tricuspid stenosis. There is a trace or physiologic amount of tricuspid regurgitation. Tricuspid regurgitation jet envelope not well defined to measure RV systolic pressure accurately. Pulmonic Valve The pulmonic valve is not well visualized. Great Vessels The aortic root is not well visualized. The inferior vena cava appeared normal and decreased > 50% with respiration (RAP 5-10 mmHg). Effusions There is no pericardial effusion. : YVES NEWBERRY > Rajesh Garza
[2017-06-12] MEDS ORDERED: INSULIN GLARGINE,HUM.REC.ANLOG 1,000 UNIT/10 ML UNIT SUBCUT SCH (22:00)
[2017-06-13] MEDS: METOCLOPRAMIDE HCL INJ/PF 10 MG/2 ML SDV IV SCH ×4 (00:37→17:54)
[2017-06-13] MEDS: LANSOPRAZOLE 30 MG TAB.RAP.DR PO SCH (05:20)
[2017-06-13] MEDS: INSULIN REG, HUMAN 100 UNIT/ML 3 ML VIAL (PYX) SUBCUT PRN ×4 (08:17→21:31)
[2017-06-13] MEDS: DOCUSATE SODIUM 100 MG CAPSULE PO SCH ×2 (09:06→17:54)
[2017-06-13] MEDS: SODIUM BICARBONATE 650 MG TABLET PO SCH ×2 (09:06→21:32)
[2017-06-13] MEDS: ENOXAPARIN SODIUM INJ 30 MG/0.3 ML DISP.SYRIN SUBCUT SCH (09:06)
[2017-06-13] MEDS: 1/2 NORMAL SALINE 1,000 ML IV PRN (18:14)
[2017-06-13] MEDS ORDERED: FLUCONAZOLE 100 MG TABLET PO ONE (20:00)
[2017-06-13] MEDS ORDERED: PHENAZOPYRIDINE HCL 200 MG TABLET PO ONE (20:00)
[2017-06-13] MEDS ORDERED: ZINC OXIDE 20% OINTMENT 28.35 GM TP ONE (21:00)
[2017-06-13] MEDS ORDERED: CLOTRIMAZOLE 1% CREAM 15 GM TP ONE (21:00)
[2017-06-13] MEDS: RIVAROXABAN 15 MG TABLET PO SCH (21:31)
[2017-06-13] MEDS ORDERED: INSULIN GLARGINE,HUM.REC.ANLOG 300 UNIT/3 ML INSULN.PEN SUBCUT SCH (22:00)
[2017-06-14] MEDS: METOCLOPRAMIDE HCL INJ/PF 10 MG/2 ML SDV IV SCH ×4 (00:23→18:16)
[2017-06-14] MEDS ORDERED: PHENAZOPYRIDINE HCL 200 MG TABLET ONE (03:32)
[2017-06-14] MEDS: PHENAZOPYRIDINE HCL 200 MG TABLET PO SCH ×3 (05:09→22:28)
[2017-06-14] MEDS: LANSOPRAZOLE 30 MG TAB.RAP.DR PO SCH (05:09)
[2017-06-14 07:22] LABS: HEMATOCRIT 25.5 % (36.0-47.0); HEMOGLOBIN 8.4 g/dL (12.0-15.5); MEAN CORPUSCULAR HEMOGLOBIN 28.4 pg (27.0-33.4); MEAN CORPUSCULAR VOLUME 86 fl (80-97); PLATELET COUNT 163 10^3/uL (150-450); RED BLOOD COUNT 2.96 10^6/uL (3.72-5.28); RED CELL DISTRIBUTION WIDTH 15.3 % (11.5-14.0); WHITE BLOOD COUNT 5.1 10^3/uL (4.0-10.5)
[2017-06-14 07:32] LABS: ANION GAP 8 (5-19); BLOOD UREA NITROGEN 17 mg/dL (7-20); CARBON DIOXIDE 14 mmol/L (22-30); CHLORIDE 119 mmol/L (98-107); GLUCOSE 118 mg/dL (75-110); POTASSIUM 3.5 mmol/L (3.6-5.0); SODIUM 141.3 mmol/L (137-145)
[2017-06-14] MEDS ORDERED: INSULIN GLARGINE,HUM.REC.ANLOG 1,000 UNIT/10 ML UNIT SUBCUT SCH (08:00)
[2017-06-14 08:01] LABS: ABSOLUTE LYMPHOCYTES# (MANUAL) 1.4 10^3/uL (0.5-4.7); ABSOLUTE MONOCYTES # (MANUAL) 0.4 10^3/uL (0.1-1.4); ABSOLUTE NEUTROPHILS# (MANUAL) 3.2 10^3/uL (1.7-8.2); ANISOCYTOSIS SLIGHT; BAND NEUTROPHILS % (MANUAL) 2 % (3-5); BASOPHILS % (MANUAL) 1 % (0-2); EOSINOPHILS % (MANUAL) 1 % (0-6); HYPOCHROMASIA SLIGHT; LYMPHOCYTES % (MANUAL) 26 % (13-45); METAMYELOCYTES % (MANUAL) 1 % (0); MONOCYTES % (MANUAL) 8 % (3-13); PLATELET COMMENT ADEQUATE; SEGMENTED NEUTROPHILS % (MAN) 60 % (42-78); TOTAL CELLS COUNTED 100; TOXIC GRANULATION 2+
[2017-06-14] MEDS: DOCUSATE SODIUM 100 MG CAPSULE PO SCH ×2 (09:35→18:16)
[2017-06-14] MEDS: SODIUM BICARBONATE 650 MG TABLET PO SCH ×2 (09:35→22:28)
[2017-06-14] MEDS: ZINC OXIDE 20% OINTMENT 28.35 GM TP SCH ×2 (09:36→18:15)
[2017-06-14] MEDS: CLOTRIMAZOLE 1% CREAM 15 GM TP SCH ×2 (09:36→18:16)
[2017-06-14] MEDS: HYDRALAZINE HCL INJ/PF 20 MG/1 ML SDV IV PRN (09:36)
[2017-06-14] MEDS: PREDNISOLONE ACETATE 1% OPH SUSP 5 ML OU SCH ×2 (09:36→18:17)
[2017-06-14] MEDS: 1/2 NORMAL SALINE 1,000 ML IV PRN (09:37)
[2017-06-14] MEDS: MAGNESIUM HYDROXIDE SUSP 30 ML UDCUP PO PRN (14:47)
[2017-06-14] MEDS ORDERED: FLUCONAZOLE 100 MG TABLET PO SCH (18:00)
[2017-06-14] MEDS ORDERED: POTASSI CL 20 MEQ/50 ML RIDER 20 MEQ/50 ML RTUPB IV ONE (18:30)
[2017-06-14] MEDS: RIVAROXABAN 15 MG TABLET PO SCH (22:27)
[2017-06-14] MEDS: METOPROLOL TARTRATE 100 MG TABLET PO SCH (22:28)
[2017-06-14] MEDS: MAGNESIUM SULFATE/D5W 1 GM/100 ML RTUPB IV SCH (22:35)
[2017-06-15] MEDS: METOCLOPRAMIDE HCL INJ/PF 10 MG/2 ML SDV IV SCH ×5 (00:24→23:54)
[2017-06-15] MEDS: MAGNESIUM SULFATE/D5W 1 GM/100 ML RTUPB IV SCH ×3 (00:24→03:43)
[2017-06-15] MEDS ORDERED: MAGNESIUM SULFATE/D5W 1 GM/100 ML RTUPB IV ONE (02:19)
[2017-06-15] MEDS: LANSOPRAZOLE 30 MG TAB.RAP.DR PO SCH (05:19)
[2017-06-15] MEDS: PHENAZOPYRIDINE HCL 200 MG TABLET PO SCH ×3 (05:19→22:13)
[2017-06-15] MEDS: HYDRALAZINE HCL INJ/PF 20 MG/1 ML SDV IV PRN (06:04)
[2017-06-15 07:01] LABS: ABSOLUTE EOSINOPHILS # (AUTO) 0.1 10^3/uL (0.0-0.6); ABSOLUTE LYMPHOCYTES (AUTO) 1.1 10^3/uL (0.5-4.7); ABSOLUTE MONOCYTES (AUTO) 0.5 10^3/uL (0.1-1.4); ABSOLUTE NEUT (AUTO) 4.7 10^3/uL (1.7-8.2); BASOPHILS % (AUTO) 0.2 % (0-2); HEMATOCRIT 28.8 % (36.0-47.0); HEMOGLOBIN 9.5 g/dL (12.0-15.5); LYMPHOCYTES % (AUTO) 17.5 % (13-45); MEAN CORPUSCULAR HEMOGLOBIN 28.2 pg (27.0-33.4); MEAN CORPUSCULAR HGB CONC 32.9 g/dL (32.0-36.0); MEAN CORPUSCULAR VOLUME 86 fl (80-97); MONOCYTES % (AUTO) 7.6 % (3-13); PLATELET COUNT 179 10^3/uL (150-450); RED BLOOD COUNT 3.36 10^6/uL (3.72-5.28); RED CELL DISTRIBUTION WIDTH 15.1 % (11.5-14.0); SEGMENTED NEUTROPHILS % (AUTO) 73.7 % (42-78); TOTAL CELLS COUNTED % (AUTO) 100 %; WHITE BLOOD COUNT 6.3 10^3/uL (4.0-10.5)
[2017-06-15 07:21] LABS: ANION GAP 9 (5-19); BLOOD UREA NITROGEN 13 mg/dL (7-20); CALCIUM 8.3 mg/dL (8.4-10.2); CARBON DIOXIDE 16 mmol/L (22-30); CHLORIDE 116 mmol/L (98-107); GLUCOSE 95 mg/dL (75-110); POTASSIUM 3.6 mmol/L (3.6-5.0); SODIUM 140.6 mmol/L (137-145)
[2017-06-15] MEDS: INSULIN GLARGINE,HUM.REC.ANLOG 1,000 UNIT/10 ML UNIT SUBCUT SCH (08:51)
[2017-06-15] MEDS: PREDNISOLONE ACETATE 1% OPH SUSP 5 ML OU SCH ×2 (09:03→17:37)
[2017-06-15] MEDS: SODIUM BICARBONATE 650 MG TABLET PO SCH ×2 (09:06→22:13)
[2017-06-15] MEDS: METOPROLOL TARTRATE 100 MG TABLET PO SCH ×2 (09:06→22:13)
[2017-06-15] MEDS: DOCUSATE SODIUM 100 MG CAPSULE PO SCH ×2 (09:06→17:37)
[2017-06-15] MEDS: MAGNESIUM HYDROXIDE SUSP 30 ML UDCUP PO PRN (09:07)
[2017-06-15] MEDS: ZINC OXIDE 20% OINTMENT 28.35 GM TP SCH ×2 (09:09→17:37)
[2017-06-15] MEDS: CLOTRIMAZOLE 1% CREAM 15 GM TP SCH ×2 (09:09→17:37)
[2017-06-15] MEDS ORDERED: MIRTAZAPINE 15 MG TABLET PO ONE (11:30)
[2017-06-15] MEDS: NORMAL SALINE 1000 ML 1,000 ML IV PRN (12:53)
--- NOTE | 2017-06-15 17:58 | PDOC PROGRESS REPORT ---
Subjective Progress Note for:: 06/15/17 Subjective:: Patient complains of being constipated. She also is concerned because she is weak. Admits as to having poor appetite Review of system All organ systems evaluated and negative except as in subjective All significant laboratories and diagnostics have been reviewed Reason For Visit: TIA,ARF,METASTATIC CA Physical Exam Vital Signs: Temp Pulse Resp BP Pulse Ox 99.6 F 79 20 169/61 H 100 06/15/17 04:20 06/15/17 07:00 06/15/17 04:20 06/15/17 04:20 06/15/17 04:20 Intake & Output 06/14/17 06/15/17 06/16/17 06:59 06:59 06:59 Intake Total 2160 1652 Balance 2160 1652 Weight 66.5 kg 69.6 kg General appearance: PRESENT: cooperative, thin Head exam: PRESENT: atraumatic, normocephalic Eye exam: PRESENT: conjunctiva pink, EOMI Ear exam: PRESENT: normal external ear exam Neck exam: PRESENT: full ROM. ABSENT: JVD, lymphadenopathy, tenderness Respiratory exam: PRESENT: clear to auscultation zane Cardiovascular exam: PRESENT: RRR. ABSENT: diastolic murmur, systolic murmur GI/Abdominal exam: PRESENT: normal bowel sounds, soft. ABSENT: tenderness Extremities exam: PRESENT: full ROM. ABSENT: pedal edema Musculoskeletal exam: PRESENT: ambulatory Neurological exam: PRESENT: alert, awake, oriented to person, oriented to place , oriented to time, oriented to situation Skin exam: PRESENT: intact, normal color Results Laboratory Results: 06/15/17 06:31 06/15/17 06:31 06/14/17 06/15/17 06/15/17 05:26 06:31 06:31 WBC 5.1 6.3 RBC 2.96 L 3.36 L Hgb 8.4 L 9.5 L Hct 25.5 L 28.8 L MCV 86 86 MCH 28.4 28.2 MCHC 33.0 32.9 RDW 15.3 H 15.1 H Plt Count 163 179 Seg Neutrophils % Not Reportable 73.7 Lymphocytes % Not Reportable 17.5 Monocytes % Not Reportable 7.6 Eosinophils % Not Reportable 1.0 Basophils % Not Reportable 0.2 Absolute Neutrophils Not Reportable 4.7 Absolute Lymphocytes Not Reportable 1.1 Absolute Monocytes Not Reportable 0.5 Absolute Eosinophils Not Reportable 0.1 Absolute Basophils Not Reportable 0.0 Sodium 140.6 Potassium 3.6 Chloride 116 H Carbon Dioxide 16 L Anion Gap 9 BUN 13 Creatinine 0.78 Est GFR ( Amer) > 60 Est GFR (Non-Af Amer) > 60 Glucose 95 Calcium 8.3 L Magnesium 2.4 H Impressions: Abdomen/Pelvis CT 06/11/17 08:26 IMPRESSION: 1. No evidence of bowel obstruction or other acute finding. 2. Known right breast mass and bone metastasis. Head CT 06/11/17 12:12 IMPRESSION: CHRONIC SINUSITIS. CHRONIC WHITE MATTER CHANGES. OTHERWISE, NORMAL BRAIN CT WITHOUT CONTRAST. EVIDENCE OF ACUTE STROKE: NO. Head MRI 06/11/17 14:52 IMPRESSION: 1. Chronic intracranial changes include atrophy and small vessel disease. No acute CVA. 2. Heterogeneous bone changes in the upper cervical spine and at the skullbase. Presumably related to osseous metastatic disease. Patient has history of abnormal bone and PET scans with breast cancer. EVIDENCE OF ACUTE STROKE: NO. Carotid Doppler Study 06/12/17 00:00 IMPRESSION: NO HEMODYNAMICALLY SIGNIFICANT STENOSIS. Assessment & Plan - Diagnosis (1) Acute renal failure Qualifiers: Acute renal failure type: unspecified Qualified Code(s): N17.9 - Acute kidney failure, unspecified Is this a current diagnosis for this admission?: Yes Plan: Resolved (2) Hypernatremia Is this a current diagnosis for this admission?: Yes Plan: Resolved. (3) Metastatic breast cancer Is this a current diagnosis for this admission?: Yes (4) Urinary tract infection Qualifiers: Urinary tract infection type: acute cystitis Is this a current diagnosis for this admission?: Yes Plan: Due to Cora likely there is a vaginal contaminant (5) Vulvovaginitis Is this a current diagnosis for this admission?: Yes Plan: Will place patient on Premarin vaginal cream as there may be estrogen deprived due to chemotherapy treatments. Continue clotrimazole (6) Adult failure to thrive syndrome Is this a current diagnosis for this admission?: Yes Plan: Will start Remeron. Patient will be placed on IV fluids since appears to be slightly dehydrated - Time Time Spent with patient: 15-24 minutes Medications reviewed and adjusted accordingly: Yes Anticipated discharge: Home with Homehealth Within: within 48 hours - Inpatient Certification Based on my medical assessment, after consideration of the patient's comorbidities, presenting symptoms, or acuity I expect that the services needed warrant INPATIENT care.: Yes I certify that my determination is in accordance with my understanding of Medicare's requirements for reasonable and necessary INPATIENT services [42 CFR 412.3e].: Yes Medical Necessity: Need Close Monitoring Due to Risk of Patient Decompensation, Need For IV Fluids
[2017-06-15] MEDS: ESTROGENS,CONJUGATED 0.625 MG/1 GM 30 GM TUBE VG SCH (22:13)
[2017-06-15] MEDS: RIVAROXABAN 15 MG TABLET PO SCH (22:13)
[2017-06-16] MEDS: PHENAZOPYRIDINE HCL 200 MG TABLET PO SCH ×3 (05:22→22:28)
[2017-06-16] MEDS: METOCLOPRAMIDE HCL INJ/PF 10 MG/2 ML SDV IV SCH ×4 (05:22→23:45)
[2017-06-16] MEDS: LANSOPRAZOLE 30 MG TAB.RAP.DR PO SCH (05:22)
[2017-06-16 07:01] LABS: ABSOLUTE LYMPHOCYTES (AUTO) 1.2 10^3/uL (0.5-4.7); ABSOLUTE MONOCYTES (AUTO) 0.5 10^3/uL (0.1-1.4); ABSOLUTE NEUT (AUTO) 4.3 10^3/uL (1.7-8.2); BASOPHILS % (AUTO) 0.7 % (0-2); EOSINOPHILS % (AUTO) 0.8 % (0-6); HEMATOCRIT 28.8 % (36.0-47.0); HEMOGLOBIN 9.4 g/dL (12.0-15.5); LYMPHOCYTES % (AUTO) 19.1 % (13-45); MEAN CORPUSCULAR HEMOGLOBIN 27.9 pg (27.0-33.4); MEAN CORPUSCULAR HGB CONC 32.7 g/dL (32.0-36.0); MEAN CORPUSCULAR VOLUME 86 fl (80-97); MONOCYTES % (AUTO) 8.6 % (3-13); PLATELET COUNT 172 10^3/uL (150-450); RED BLOOD COUNT 3.37 10^6/uL (3.72-5.28); RED CELL DISTRIBUTION WIDTH 15.1 % (11.5-14.0); SEGMENTED NEUTROPHILS % (AUTO) 70.8 % (42-78); TOTAL CELLS COUNTED % (AUTO) 100 %; WHITE BLOOD COUNT 6.1 10^3/uL (4.0-10.5)
[2017-06-16 07:29] LABS: ANION GAP 7 (5-19); BLOOD UREA NITROGEN 14 mg/dL (7-20); CARBON DIOXIDE 16 mmol/L (22-30); CHLORIDE 118 mmol/L (98-107); GLUCOSE 62 mg/dL (75-110); POTASSIUM 3.9 mmol/L (3.6-5.0); SODIUM 140.8 mmol/L (137-145)
[2017-06-16] MEDS: INSULIN GLARGINE,HUM.REC.ANLOG 1,000 UNIT/10 ML UNIT SUBCUT SCH (09:18)
[2017-06-16] MEDS: SODIUM BICARBONATE 650 MG TABLET PO SCH ×2 (09:19→22:28)
[2017-06-16] MEDS: METOPROLOL TARTRATE 100 MG TABLET PO SCH ×2 (09:19→22:28)
[2017-06-16] MEDS: PREDNISOLONE ACETATE 1% OPH SUSP 5 ML OU SCH ×2 (09:21→17:11)
[2017-06-16] MEDS: CLOTRIMAZOLE 1% CREAM 15 GM TP SCH ×2 (09:22→17:11)
[2017-06-16] MEDS: ZINC OXIDE 20% OINTMENT 28.35 GM TP SCH ×2 (09:22→17:11)
[2017-06-16] MEDS: DOCUSATE SODIUM 100 MG CAPSULE PO SCH ×2 (09:26→17:10)
[2017-06-16] MEDS ORDERED: LIDOCAINE 2% JELLY 5 ML TUBE TOP PRN (09:39)
--- NOTE | 2017-06-16 11:38 | PDOC PROGRESS REPORT ---
Subjective Progress Note for:: 06/16/17 Subjective:: Patient refers poor appetite . Also complains of burning on urination. Review of system All organ systems evaluated and negative except as in subjective All significant laboratories and diagnostics have been reviewed Reason For Visit: TIA,ARF,METASTATIC CA Physical Exam Vital Signs: Temp Pulse Resp BP Pulse Ox 98.8 F 69 20 143/69 H 95 06/16/17 03:19 06/16/17 03:19 06/16/17 03:19 06/16/17 03:19 06/16/17 03:19 Intake & Output 06/15/17 06/16/17 06/17/17 06:59 06:59 06:59 Intake Total 1652 2153 Balance 1652 2153 Weight 69.6 kg 71.2 kg General appearance: PRESENT: cooperative, thin Head exam: PRESENT: atraumatic, normocephalic Eye exam: PRESENT: conjunctiva pink, EOMI, PERRLA Ear exam: PRESENT: normal external ear exam Mouth exam: PRESENT: moist Neck exam: PRESENT: full ROM. ABSENT: JVD, lymphadenopathy, tenderness Respiratory exam: PRESENT: clear to auscultation zane Cardiovascular exam: PRESENT: RRR. ABSENT: diastolic murmur, systolic murmur Vascular exam: PRESENT: normal capillary refill GI/Abdominal exam: PRESENT: normal bowel sounds, soft. ABSENT: tenderness Extremities exam: PRESENT: full ROM Musculoskeletal exam: PRESENT: ambulatory Neurological exam: PRESENT: alert, awake, oriented to person, oriented to place , oriented to time, oriented to situation, CN II-XII grossly intact Psychiatric exam: PRESENT: appropriate affect, normal mood Skin exam: PRESENT: intact, normal color Results Laboratory Results: 06/15/17 06/15/17 06:31 06:31 WBC 6.3 RBC 3.36 L Hgb 9.5 L Hct 28.8 L MCV 86 MCH 28.2 MCHC 32.9 RDW 15.1 H Plt Count 179 Seg Neutrophils % 73.7 Lymphocytes % 17.5 Monocytes % 7.6 Eosinophils % 1.0 Basophils % 0.2 Absolute Neutrophils 4.7 Absolute Lymphocytes 1.1 Absolute Monocytes 0.5 Absolute Eosinophils 0.1 Absolute Basophils 0.0 Sodium 140.6 Potassium 3.6 Chloride 116 H Carbon Dioxide 16 L Anion Gap 9 BUN 13 Creatinine 0.78 Est GFR ( Amer) > 60 Est GFR (Non-Af Amer) > 60 Glucose 95 Calcium 8.3 L Magnesium 2.4 H Impressions: Abdomen/Pelvis CT 06/11/17 08:26 IMPRESSION: 1. No evidence of bowel obstruction or other acute finding. 2. Known right breast mass and bone metastasis. Head CT 06/11/17 12:12 IMPRESSION: CHRONIC SINUSITIS. CHRONIC WHITE MATTER CHANGES. OTHERWISE, NORMAL BRAIN CT WITHOUT CONTRAST. EVIDENCE OF ACUTE STROKE: NO. Head MRI 06/11/17 14:52 IMPRESSION: 1. Chronic intracranial changes include atrophy and small vessel disease. No acute CVA. 2. Heterogeneous bone changes in the upper cervical spine and at the skullbase. Presumably related to osseous metastatic disease. Patient has history of abnormal bone and PET scans with breast cancer. EVIDENCE OF ACUTE STROKE: NO. Carotid Doppler Study 06/12/17 00:00 IMPRESSION: NO HEMODYNAMICALLY SIGNIFICANT STENOSIS. Assessment & Plan - Diagnosis (1) Acute renal failure Qualifiers: Acute renal failure type: unspecified Qualified Code(s): N17.9 - Acute kidney failure, unspecified Is this a current diagnosis for this admission?: Yes Plan: Resolved (2) Hypernatremia Is this a current diagnosis for this admission?: Yes Plan: Resolved. (3) Metastatic breast cancer Is this a current diagnosis for this admission?: Yes Plan: As per oncology (4) Urinary tract infection Qualifiers: Urinary tract infection type: acute cystitis Hematuria presence: without hematuria Qualified Code(s): N30.00 - Acute cystitis without hematuria Is this a current diagnosis for this admission?: Yes Plan: To continue Diflucan (5) Vulvovaginitis Is this a current diagnosis for this admission?: Yes Plan: Continue Premarin vaginal cream as there may be estrogen deprived due to chemotherapy treatments. Continue clotrimazole. Try lidocaine gel for pain (6) Adult failure to thrive syndrome Is this a current diagnosis for this admission?: Yes Plan: We will continue IV fluids for the next 24 hours. Patient informed that needed to talk to her daughter as she may be discharged in the morning. Continue Remeron - Time Time Spent with patient: 15-24 minutes Medications reviewed and adjusted accordingly: Yes Anticipated discharge: Home with Homehealth Within: within 24 hours - Inpatient Certification Based on my medical assessment, after consideration of the patient's comorbidities, presenting symptoms, or acuity I expect that the services needed warrant INPATIENT care.: Yes I certify that my determination is in accordance with my understanding of Medicare's requirements for reasonable and necessary INPATIENT services [42 CFR 412.3e].: Yes Medical Necessity: Need For IV Fluids
[2017-06-16] MEDS: FLUCONAZOLE 100 MG TABLET PO SCH (12:34)
[2017-06-16] MEDS: NORMAL SALINE 1000 ML 1,000 ML IV PRN ×2 (15:12→23:45)
[2017-06-16] MEDS: MIRTAZAPINE 15 MG TABLET PO SCH (22:29)
[2017-06-16] MEDS: RIVAROXABAN 15 MG TABLET PO SCH (22:29)
[2017-06-16] MEDS: ESTROGENS,CONJUGATED 0.625 MG/1 GM 30 GM TUBE VG SCH (22:30)
[2017-06-17] MEDS: PHENAZOPYRIDINE HCL 200 MG TABLET PO SCH (06:12)
[2017-06-17] MEDS: LANSOPRAZOLE 30 MG TAB.RAP.DR PO SCH (06:13)
[2017-06-17] MEDS: METOCLOPRAMIDE HCL INJ/PF 10 MG/2 ML SDV IV SCH ×2 (06:14→11:33)
[2017-06-17] MEDS: INSULIN GLARGINE,HUM.REC.ANLOG 1,000 UNIT/10 ML UNIT SUBCUT SCH (08:16)
[2017-06-17] MEDS: PREDNISOLONE ACETATE 1% OPH SUSP 5 ML OU SCH ×2 (09:17→19:02)
[2017-06-17] MEDS: DOCUSATE SODIUM 100 MG CAPSULE PO SCH ×2 (09:18→19:02)
[2017-06-17] MEDS: ZINC OXIDE 20% OINTMENT 28.35 GM TP SCH ×2 (09:18→19:02)
[2017-06-17] MEDS: CLOTRIMAZOLE 1% CREAM 15 GM TP SCH ×2 (09:18→19:02)
[2017-06-17] MEDS: METOPROLOL TARTRATE 100 MG TABLET PO SCH ×2 (09:19→22:22)
[2017-06-17] MEDS: SODIUM BICARBONATE 650 MG TABLET PO SCH ×2 (09:19→22:22)
[2017-06-17] MEDS ORDERED: FENTANYL 12 MCG/HR PATCH.TD72 TD SCH (11:00)
[2017-06-17] MEDS: FLUCONAZOLE 100 MG TABLET PO SCH (11:32)
[2017-06-17] MEDS: NORMAL SALINE 1000 ML 1,000 ML IV PRN ×2 (11:33→22:19)
--- NOTE | 2017-06-17 13:01 | PDOC PROGRESS REPORT ---
Subjective Progress Note for:: 06/17/17 Subjective:: Patient complains of pain in her private area. Accordingly pain on urination still the same Review of system All organ systems evaluated and negative except as in subjective All significant laboratories and diagnostics have been reviewed Reason For Visit: TIA,ARF,METASTATIC CA Physical Exam Vital Signs: Temp Pulse Resp BP Pulse Ox 98.7 F 73 18 144/66 H 97 06/17/17 07:29 06/17/17 07:29 06/17/17 07:29 06/17/17 07:29 06/17/17 07:29 Intake & Output 06/16/17 06/17/17 06/18/17 06:59 06:59 06:59 Intake Total 2153 3441 Balance 2153 3441 Weight 71.2 kg 73.8 kg General appearance: PRESENT: cooperative, thin Head exam: PRESENT: atraumatic, normocephalic Eye exam: PRESENT: conjunctiva pink, EOMI, PERRLA Ear exam: PRESENT: normal external ear exam Mouth exam: PRESENT: moist Neck exam: PRESENT: full ROM. ABSENT: JVD, lymphadenopathy, tenderness Respiratory exam: PRESENT: clear to auscultation zane Cardiovascular exam: PRESENT: RRR, systolic murmur. ABSENT: diastolic murmur Vascular exam: PRESENT: normal capillary refill GI/Abdominal exam: PRESENT: normal bowel sounds, soft. ABSENT: tenderness Extremities exam: PRESENT: full ROM. ABSENT: pedal edema Musculoskeletal exam: PRESENT: ambulatory, other - Tenderness on palpation on mons pubis Neurological exam: PRESENT: alert, awake, oriented to person, oriented to place , oriented to time, oriented to situation, CN II-XII grossly intact Psychiatric exam: PRESENT: appropriate affect, normal mood Skin exam: PRESENT: intact, normal color Results Laboratory Results: 06/16/17 05:51 06/16/17 05:51 Impressions: Abdomen/Pelvis CT 06/11/17 08:26 IMPRESSION: 1. No evidence of bowel obstruction or other acute finding. 2. Known right breast mass and bone metastasis. Head CT 06/11/17 12:12 IMPRESSION: CHRONIC SINUSITIS. CHRONIC WHITE MATTER CHANGES. OTHERWISE, NORMAL BRAIN CT WITHOUT CONTRAST. EVIDENCE OF ACUTE STROKE: NO. Head MRI 06/11/17 14:52 IMPRESSION: 1. Chronic intracranial changes include atrophy and small vessel disease. No acute CVA. 2. Heterogeneous bone changes in the upper cervical spine and at the skullbase. Presumably related to osseous metastatic disease. Patient has history of abnormal bone and PET scans with breast cancer. EVIDENCE OF ACUTE STROKE: NO. Carotid Doppler Study 06/12/17 00:00 IMPRESSION: NO HEMODYNAMICALLY SIGNIFICANT STENOSIS. Assessment & Plan - Diagnosis (1) Acute renal failure Qualifiers: Acute renal failure type: unspecified Qualified Code(s): N17.9 - Acute kidney failure, unspecified Is this a current diagnosis for this admission?: Yes Plan: Resolved (2) Hypernatremia Is this a current diagnosis for this admission?: Yes Plan: Resolved (3) Metastatic breast cancer Is this a current diagnosis for this admission?: Yes Plan: Suspect metastases to pelvic bone. To order x-ray. Patient to be placed on low -dose fentanyl patch (4) Urinary tract infection Qualifiers: Urinary tract infection type: acute cystitis Hematuria presence: without hematuria Qualified Code(s): N30.00 - Acute cystitis without hematuria Is this a current diagnosis for this admission?: Yes Plan: To continue Diflucan (5) Vulvovaginitis Is this a current diagnosis for this admission?: Yes Plan: Continue Premarin vaginal cream as there may be estrogen deprived due to chemotherapy treatments. Continue clotrimazole/lidocaine gel. To place patient on low-dose fentanyl patch in suspect she may be having referred pain due to metastatic disease.Order pelvic x-ray (6) Adult failure to thrive syndrome Is this a current diagnosis for this admission?: Yes Plan: To continue IV fluids. Will hold off discharge since appears daughter is not ready to take over her care over the weekend (7) TIA (transient ischemic attack) Qualifiers: Transient cerebral ischemia type: unspecified Qualified Code(s): G45.9 - Transient cerebral ischemic attack, unspecified Is this a current diagnosis for this admission?: Yes Plan: Stable from the neurological standpoint of view. Will not aspirin out of concern of bleeding she is he is on Xarelto already - Time Time Spent with patient: 15-24 minutes Medications reviewed and adjusted accordingly: Yes Anticipated discharge: Home with Homehealth Within: within 48 hours - Inpatient Certification Based on my medical assessment, after consideration of the patient's comorbidities, presenting symptoms, or acuity I expect that the services needed warrant INPATIENT care.: Yes I certify that my determination is in accordance with my understanding of Medicare's requirements for reasonable and necessary INPATIENT services [42 CFR 412.3e].: Yes Medical Necessity: Need Close Monitoring Due to Risk of Patient Decompensation, Need For IV Fluids
--- NOTE | 2017-06-17 16:10 | RADIOLOGY REPORT (SQ) ---
EXAM DESCRIPTION: PELVIS W/OBLIQUES COMPLETED DATE/TIME: 06/17/2017 3:45 pm REASON FOR STUDY: eval for metastatic disease to pelvic bone COMPARISON: CT abdomen pelvis 06/11/2017 PET-CT 05/28/2017 NUMBER OF VIEWS: Two views TECHNIQUE: AP pelvis and additional frog-leg view of both hips. LIMITATIONS: None. FINDINGS: MINERALIZATION: Bones are osteoporotic. Multiple small subcentimeter lytic lesions are sc attered throughout the bony pelvis and proximal femurs HIPS: No fracture. No significant joint space narrowing PELVIS AND SACRUM: No fracture. Multiple small subcentimeter lytic lesions are scattered throughout the bony pelvis and proximal femurs PUBIS AND ISCHIUM: No acute fracture. LOWER LUMBAR SPINE: Not in the field of view SOFT TISSUES: No findings. OTHER: No other significant finding. IMPRESSION: Multiple tiny lytic metastatic lesions throughout the bony pelvis and proximal femurs. No pathologic fracture TECHNICAL DOCUMENTATION: JOB ID: [id number] [email or web address] All Rights Reserved Reading location - IP/workstation name: [email or web address]
[2017-06-17] MEDS: HYDRALAZINE HCL INJ/PF 20 MG/1 ML SDV IV PRN (19:08)
[2017-06-17] MEDS: MIRTAZAPINE 15 MG TABLET PO SCH (22:22)
[2017-06-17] MEDS: ESTROGENS,CONJUGATED 0.625 MG/1 GM 30 GM TUBE VG SCH (22:23)
[2017-06-17] MEDS: RIVAROXABAN 15 MG TABLET PO SCH (22:23)
[2017-06-18] MEDS: LANSOPRAZOLE 30 MG TAB.RAP.DR PO SCH (05:21)
[2017-06-18] MEDS: INSULIN GLARGINE,HUM.REC.ANLOG 1,000 UNIT/10 ML UNIT SUBCUT SCH (08:22)
[2017-06-18] MEDS: METOPROLOL TARTRATE 100 MG TABLET PO SCH ×2 (09:16→21:51)
[2017-06-18] MEDS: DOCUSATE SODIUM 100 MG CAPSULE PO SCH ×2 (09:16→17:24)
[2017-06-18] MEDS: SODIUM BICARBONATE 650 MG TABLET PO SCH ×2 (09:16→21:51)
[2017-06-18] MEDS: ZINC OXIDE 20% OINTMENT 28.35 GM TP SCH ×2 (09:19→17:24)
[2017-06-18] MEDS: CLOTRIMAZOLE 1% CREAM 15 GM TP SCH ×2 (09:19→17:28)
[2017-06-18] MEDS: PREDNISOLONE ACETATE 1% OPH SUSP 5 ML OU SCH ×2 (09:19→17:24)
[2017-06-18] MEDS: FLUCONAZOLE 100 MG TABLET PO SCH (12:18)
--- NOTE | 2017-06-18 13:15 | PDOC PROGRESS REPORT ---
Subjective Progress Note for:: 06/18/17 Subjective:: Patient refers that her pain feels better. Still having some burning on urination. Patient was informed about the findings of the x-ray that showed metastatic disease to the bone. She was concerned about how to tell her children Review of system All organ systems evaluated and negative except as in subjective All significant laboratories and diagnostics have been reviewed Reason For Visit: TIA,ARF,METASTATIC CA Physical Exam Vital Signs: Temp Pulse Resp BP Pulse Ox 98.1 F 65 20 134/51 H 97 06/18/17 03:09 06/18/17 03:09 06/18/17 03:09 06/18/17 03:09 06/18/17 03:09 Intake & Output 06/17/17 06/18/17 06/19/17 06:59 06:59 06:59 Intake Total 3441 2962 Balance 3441 2962 Weight 73.8 kg 76 kg General appearance: PRESENT: cooperative, thin Head exam: PRESENT: atraumatic, normocephalic Eye exam: PRESENT: conjunctiva pink, EOMI, PERRLA Ear exam: PRESENT: normal external ear exam Mouth exam: PRESENT: moist Neck exam: PRESENT: full ROM. ABSENT: JVD, lymphadenopathy, tenderness Respiratory exam: PRESENT: clear to auscultation zane Cardiovascular exam: PRESENT: RRR. ABSENT: diastolic murmur, systolic murmur Vascular exam: PRESENT: normal capillary refill GI/Abdominal exam: PRESENT: normal bowel sounds, soft. ABSENT: tenderness Extremities exam: PRESENT: full ROM. ABSENT: pedal edema Musculoskeletal exam: PRESENT: ambulatory Neurological exam: PRESENT: alert, awake, oriented to person, oriented to place , oriented to time, oriented to situation, CN II-XII grossly intact Psychiatric exam: PRESENT: appropriate affect, normal mood Skin exam: PRESENT: intact, normal color Results Laboratory Results: 06/16/17 05:51 06/16/17 05:51 Impressions: Abdomen/Pelvis CT 06/11/17 08:26 IMPRESSION: 1. No evidence of bowel obstruction or other acute finding. 2. Known right breast mass and bone metastasis. Head CT 06/11/17 12:12 IMPRESSION: CHRONIC SINUSITIS. CHRONIC WHITE MATTER CHANGES. OTHERWISE, NORMAL BRAIN CT WITHOUT CONTRAST. EVIDENCE OF ACUTE STROKE: NO. Head MRI 06/11/17 14:52 IMPRESSION: 1. Chronic intracranial changes include atrophy and small vessel disease. No acute CVA. 2. Heterogeneous bone changes in the upper cervical spine and at the skullbase. Presumably related to osseous metastatic disease. Patient has history of abnormal bone and PET scans with breast cancer. EVIDENCE OF ACUTE STROKE: NO. Carotid Doppler Study 06/12/17 00:00 IMPRESSION: NO HEMODYNAMICALLY SIGNIFICANT STENOSIS. Pelvis X-Ray 06/17/17 00:00 IMPRESSION: Multiple tiny lytic metastatic lesions throughout the bony pelvis and proximal femurs. No pathologic fracture Assessment & Plan - Diagnosis (1) Acute renal failure Qualifiers: Acute renal failure type: unspecified Qualified Code(s): N17.9 - Acute kidney failure, unspecified Is this a current diagnosis for this admission?: Yes Plan: Resolved (2) Hypernatremia Is this a current diagnosis for this admission?: Yes Plan: Resolved (3) Metastatic breast cancer Is this a current diagnosis for this admission?: Yes Plan: Appears of pain in the pelvic area is due to referred pain. Will continue with fentanyl patch. Will consult palliative care however at this point in time patient would benefit from hospice. This was discussed when she was initially diagnosed as having breast cancer. I remember taking care of this patient on that occasion (4) Urinary tract infection Qualifiers: Urinary tract infection type: acute cystitis Hematuria presence: without hematuria Qualified Code(s): N30.00 - Acute cystitis without hematuria Is this a current diagnosis for this admission?: Yes Plan: To continue Diflucan (5) Vulvovaginitis Is this a current diagnosis for this admission?: Yes Plan: Continue Premarin vaginal cream as there may be estrogen deprived. Continue clotrimazole/lidocaine gel. Continue low-dose fentanyl patch since she may be having referred pain due to metastatic disease. (6) Adult failure to thrive syndrome Is this a current diagnosis for this admission?: Yes Plan: To continue IV fluids. Will hold off discharge since appears daughter is not ready to take over her care over the weekend (7) TIA (transient ischemic attack) Qualifiers: Transient cerebral ischemia type: unspecified Qualified Code(s): G45.9 - Transient cerebral ischemic attack, unspecified Is this a current diagnosis for this admission?: Yes Plan: Stable from the neurological standpoint of view. Will not add aspirin out of concern of bleeding she is he is on Xarelto already. In my opinion aggressive treatment not grunting considering patient has metastatic breast cancer - Time Time Spent with patient: 15-24 minutes Medications reviewed and adjusted accordingly: Yes Anticipated discharge: Home with Homehealth Within: within 24 hours - Inpatient Certification Based on my medical assessment, after consideration of the patient's comorbidities, presenting symptoms, or acuity I expect that the services needed warrant INPATIENT care.: Yes I certify that my determination is in accordance with my understanding of Medicare's requirements for reasonable and necessary INPATIENT services [42 CFR 412.3e].: Yes Medical Necessity: Need Close Monitoring Due to Risk of Patient Decompensation, Need For IV Fluids
[2017-06-18] MEDS: MIRTAZAPINE 15 MG TABLET PO SCH (21:51)
[2017-06-18] MEDS: RIVAROXABAN 15 MG TABLET PO SCH (21:51)
[2017-06-18] MEDS: ESTROGENS,CONJUGATED 0.625 MG/1 GM 30 GM TUBE VG SCH (21:52)
[2017-06-19] MEDS: LANSOPRAZOLE 30 MG TAB.RAP.DR PO SCH (05:32)
[2017-06-19] MEDS: METOPROLOL TARTRATE 100 MG TABLET PO SCH (09:42)
[2017-06-19] MEDS: CLOTRIMAZOLE 1% CREAM 15 GM TP SCH (09:42)
[2017-06-19] MEDS: INSULIN GLARGINE,HUM.REC.ANLOG 1,000 UNIT/10 ML UNIT SUBCUT SCH (09:42)
[2017-06-19] MEDS: DOCUSATE SODIUM 100 MG CAPSULE PO SCH (09:42)
[2017-06-19] MEDS: ZINC OXIDE 20% OINTMENT 28.35 GM TP SCH (09:42)
[2017-06-19] MEDS: SODIUM BICARBONATE 650 MG TABLET PO SCH (09:43)
[2017-06-19] MEDS: PREDNISOLONE ACETATE 1% OPH SUSP 5 ML OU SCH (09:43)
[2017-06-19] MEDS: FLUCONAZOLE 100 MG TABLET PO SCH (12:48)
[2017-06-19 16:41] VITALS: BP 150/82
--- NOTE | 2017-06-19 23:56 | PDOC PROGRESS REPORT ---
Subjective Progress Note for:: 06/13/17 Subjective:: Patient is doing much better. She is up and eating. She states that this is the first time she has eaten in 5 days. Patient has family at bedside is asking for something to put on her bottom for her rash and for physical therapy. Reason For Visit: TIA,ARF,METASTATIC CA Physical Exam Vital Signs: Temp Pulse Resp BP Pulse Ox 98.2 F 93 18 153/72 H 100 06/13/17 17:05 06/13/17 17:05 06/13/17 17:05 06/13/17 17:05 06/13/17 17:05 Intake & Output 06/12/17 06/13/17 06/14/17 06:59 06:59 06:59 Intake Total 425 2131 1256 Balance 425 2131 1256 Weight 58.7 kg 67.6 kg General appearance: PRESENT: no acute distress, well-developed, well-nourished Head exam: PRESENT: normocephalic Eye exam: PRESENT: EOMI. ABSENT: scleral icterus Ear exam: PRESENT: normal external ear exam Mouth exam: PRESENT: moist Neck exam: ABSENT: carotid bruit, JVD, lymphadenopathy, thyromegaly Respiratory exam: PRESENT: clear to auscultation zane. ABSENT: rales, rhonchi, wheezes Cardiovascular exam: PRESENT: RRR. ABSENT: diastolic murmur, rubs, systolic murmur GI/Abdominal exam: PRESENT: normal bowel sounds, soft. ABSENT: distended, guarding, mass, organolmegaly, rebound, tenderness Rectal exam: PRESENT: deferred Extremities exam: PRESENT: full ROM. ABSENT: calf tenderness, clubbing, pedal edema Neurological exam: PRESENT: alert, awake, oriented to person, oriented to place , oriented to time, oriented to situation, CN II-XII grossly intact. ABSENT: motor sensory deficit Psychiatric exam: PRESENT: appropriate affect, normal mood. ABSENT: homicidal ideation, suicidal ideation Skin exam: PRESENT: dry, intact, warm. ABSENT: cyanosis, rash Results Laboratory Results: 06/11/17 08:15 06/12/17 05:31 Impressions: Abdomen/Pelvis CT 06/11/17 08:26 IMPRESSION: 1. No evidence of bowel obstruction or other acute finding. 2. Known right breast mass and bone metastasis. Head CT 06/11/17 12:12 IMPRESSION: CHRONIC SINUSITIS. CHRONIC WHITE MATTER CHANGES. OTHERWISE, NORMAL BRAIN CT WITHOUT CONTRAST. EVIDENCE OF ACUTE STROKE: NO. Head MRI 06/11/17 14:52 IMPRESSION: 1. Chronic intracranial changes include atrophy and small vessel disease. No acute CVA. 2. Heterogeneous bone changes in the upper cervical spine and at the skullbase. Presumably related to osseous metastatic disease. Patient has history of abnormal bone and PET scans with breast cancer. EVIDENCE OF ACUTE STROKE: NO. Carotid Doppler Study 06/12/17 00:00 IMPRESSION: NO HEMODYNAMICALLY SIGNIFICANT STENOSIS. Assessment & Plan - Diagnosis (1) Adult failure to thrive syndrome Is this a current diagnosis for this admission?: Yes Plan: Possibly secondary to her malignancy. Patient eating now. Continue to encourage po intake. (2) Constipation Qualifiers: Constipation type: other constipation type Qualified Code(s): K59.09 - Other constipation Plan: Patent give MOM PRN. (3) Dehydration Is this a current diagnosis for this admission?: Yes Plan: Due to poor po intake. Improving with IV fluids. Patient now eating. (4) Metabolic acidosis Is this a current diagnosis for this admission?: Yes Plan: Patient to dehydration. Continue hydration and monitor. (5) Metastatic breast cancer Is this a current diagnosis for this admission?: Yes Plan: Managed by Oncology. (6) TIA (transient ischemic attack) Qualifiers: Transient cerebral ischemia type: unspecified Qualified Code(s): G45.9 - Transient cerebral ischemic attack, unspecified Is this a current diagnosis for this admission?: Yes Plan: MRI brain negative. Sympotms possible due to UTI. (7) Urinary tract infection Qualifiers: Urinary tract infection type: acute cystitis Hematuria presence: without hematuria Qualified Code(s): N30.00 - Acute cystitis without hematuria Is this a current diagnosis for this admission?: Yes Plan: Yeast UTI. Patient on diflucan. (8) Vulvovaginitis Is this a current diagnosis for this admission?: Yes Plan: Continue diflucan. (9) Acute renal failure Qualifiers: Acute renal failure type: unspecified Qualified Code(s): N17.9 - Acute kidney failure, unspecified Is this a current diagnosis for this admission?: Yes Plan: Was 1.35 on admission now resolved with hydration. - Time Time Spent with patient: 15-24 minutes Anticipated discharge: Home with Homehealth
--- NOTE | 2017-06-23 04:52 | PDOC PROGRESS REPORT ---
Subjective Progress Note for:: 06/14/17 Subjective:: Patient resting comfortably. Nurse giving MOM for constipation. Reason For Visit: TIA,ARF,METASTATIC CA Physical Exam Vital Signs: Temp Pulse Resp BP Pulse Ox 98.6 F 88 20 140/66 H 100 06/14/17 19:55 06/14/17 19:55 06/14/17 19:55 06/14/17 19:55 06/14/17 19:55 Intake & Output 06/13/17 06/14/17 06/15/17 06:59 06:59 06:59 Intake Total 2131 2160 1107 Balance 2131 2160 1107 Weight 67.6 kg 66.5 kg General appearance: PRESENT: no acute distress, well-developed, well-nourished Head exam: PRESENT: normocephalic Eye exam: PRESENT: EOMI. ABSENT: scleral icterus Mouth exam: PRESENT: moist Neck exam: ABSENT: carotid bruit, JVD, lymphadenopathy, thyromegaly Respiratory exam: PRESENT: clear to auscultation zane. ABSENT: rales, rhonchi, wheezes Cardiovascular exam: PRESENT: RRR. ABSENT: diastolic murmur, rubs, systolic murmur GI/Abdominal exam: PRESENT: normal bowel sounds, soft. ABSENT: distended, guarding, mass, organolmegaly, rebound, tenderness Rectal exam: PRESENT: deferred Extremities exam: PRESENT: full ROM. ABSENT: calf tenderness, clubbing, pedal edema Neurological exam: PRESENT: other - sleeping. ABSENT: motor sensory deficit Psychiatric exam: PRESENT: appropriate affect, normal mood. ABSENT: homicidal ideation, suicidal ideation Skin exam: PRESENT: dry, intact, warm. ABSENT: cyanosis, rash Results Laboratory Results: 06/14/17 05:26 06/14/17 05:26 06/14/17 06/14/17 05:26 05:26 WBC 5.1 RBC 2.96 L Hgb 8.4 L Hct 25.5 L MCV 86 MCH 28.4 MCHC 33.0 RDW 15.3 H Plt Count 163 Seg Neutrophils % Not Reportable Lymphocytes % Not Reportable Monocytes % Not Reportable Eosinophils % Not Reportable Basophils % Not Reportable Absolute Neutrophils Not Reportable Absolute Lymphocytes Not Reportable Absolute Monocytes Not Reportable Absolute Eosinophils Not Reportable Absolute Basophils Not Reportable Sodium 141.3 Potassium 3.5 L Chloride 119 H Carbon Dioxide 14 L Anion Gap 8 BUN 17 Creatinine 1.05 Est GFR ( Amer) > 60 Est GFR (Non-Af Amer) 51 L Glucose 118 H Calcium 8.0 L Magnesium 1.5 L Impressions: Abdomen/Pelvis CT 06/11/17 08:26 IMPRESSION: 1. No evidence of bowel obstruction or other acute finding. 2. Known right breast mass and bone metastasis. Head CT 06/11/17 12:12 IMPRESSION: CHRONIC SINUSITIS. CHRONIC WHITE MATTER CHANGES. OTHERWISE, NORMAL BRAIN CT WITHOUT CONTRAST. EVIDENCE OF ACUTE STROKE: NO. Head MRI 06/11/17 14:52 IMPRESSION: 1. Chronic intracranial changes include atrophy and small vessel disease. No acute CVA. 2. Heterogeneous bone changes in the upper cervical spine and at the skullbase. Presumably related to osseous metastatic disease. Patient has history of abnormal bone and PET scans with breast cancer. EVIDENCE OF ACUTE STROKE: NO. Carotid Doppler Study 06/12/17 00:00 IMPRESSION: NO HEMODYNAMICALLY SIGNIFICANT STENOSIS. Assessment & Plan - Diagnosis (1) Acute renal failure Qualifiers: Acute renal failure type: unspecified Qualified Code(s): N17.9 - Acute kidney failure, unspecified Is this a current diagnosis for this admission?: Yes Plan: Resolved. (2) Adult failure to thrive syndrome Is this a current diagnosis for this admission?: Yes Plan: Possibly secondary to her malignancy. Encourage po intake. (3) Constipation Qualifiers: Constipation type: other constipation type Qualified Code(s): K59.09 - Other constipation Plan: Patent give MOM PRN. (4) Dehydration Is this a current diagnosis for this admission?: Yes Plan: Resolved with IV hydration. Now patient eating. (5) Hypomagnesemia Plan: Patient given IV replacement for magnesium of 1.5. (6) Metabolic acidosis Is this a current diagnosis for this admission?: Yes Plan: Patient to dehydration. Continue hydration and monitor. (7) Metastatic breast cancer Is this a current diagnosis for this admission?: Yes Plan: Managed by Oncology. (8) TIA (transient ischemic attack) Qualifiers: Transient cerebral ischemia type: unspecified Qualified Code(s): G45.9 - Transient cerebral ischemic attack, unspecified Is this a current diagnosis for this admission?: Yes Plan: MRI brain negative. Sympotms possible due to UTI. (9) Vulvovaginitis Is this a current diagnosis for this admission?: Yes Plan: Continue diflucan. (10) Hypernatremia Is this a current diagnosis for this admission?: Yes Plan: Resolved with 1/2NS. (11) Anemia Is this a current diagnosis for this admission?: Yes Plan: anemia of chronic disease. - Time Time Spent with patient: Less than 15 minutes Anticipated discharge: Home with Homehealth
--- NOTE | 2017-08-09 07:52 | PDOC DISCHARGE SUMMARY ---
General - Admit/Disc Date/PCP Admission Date/Primary Care Provider: 06/10/17 15:30 LISA TORRES MD Discharge Date: 06/19/17 - Discharge Diagnosis (1) Acute renal failure Is this a current diagnosis for this admission?: Yes (2) Intractable vomiting Is this a current diagnosis for this admission?: Yes (3) Metastatic breast cancer Is this a current diagnosis for this admission?: Yes (4) Urinary tract infection Is this a current diagnosis for this admission?: Yes (5) Metabolic acidosis Is this a current diagnosis for this admission?: Yes (6) TIA (transient ischemic attack) Is this a current diagnosis for this admission?: Yes (7) Vulvovaginitis Is this a current diagnosis for this admission?: Yes (8) Adult failure to thrive syndrome Is this a current diagnosis for this admission?: Yes - Additional Information Resuscitation Status: Full Code Discharge Diet: Cardiac, Diabetic Discharge Activity: Activity As Tolerated, Balance Activity w/Rest, Slowly Increase Activity Prescriptions: Estrogens,Conjugated [Premarin Vaginal Cream (0.625 mg/gm) 30 gm] 0.5 gm VG QHS #1 tube Fentanyl [Duragesic 12 Mcg/Hr Transdermal Patch] 1 each TD Q3D@1100 #10 patch.td72 Fluconazole [Diflucan 100 mg Tablet] 200 mg PO NOON #10 tablet Sodium Bicarbonate [Sodium Bicarbonate 650 mg Tablet] 650 mg PO Q12 #60 tablet Zinc Oxide [Zinc Oxide 20% Ointment 28.35 gm] 1 applic TP BID #1 tube Home Medications: Aspirin [Ecotrin 81 mg EC Tablet] 81 mg PO DAILY 06/11/17 Cholecalciferol (Vitamin D3) [Vitamin D3 1000 Unit Tablet] 2,000 unit PO DAILY 06/11/17 Glipizide [Glucotrol 10 mg Tablet] 10 mg PO DAILY 06/11/17 Insulin Glargine,Hum.rec.anlog [Lantus Insulin 100 Unit/1 ml 10 ml] 40 unit SUBCUT QAM 06/11/17 Metoprolol Tartrate [Lopressor 100 mg Tablet] 100 mg PO Q12 06/11/17 Mirtazapine [Remeron 15 mg Tablet] 7.5 mg PO QHS 06/11/17 Prednisolone Acetate [Pred Forte] 1 drop OU BID 06/11/17 Rivaroxaban [Xarelto 15 mg Tablet] 15 mg PO QHS 02/18/18 Estrogens,Conjugated [Premarin Vaginal Cream (0.625 mg/gm) 30 gm] 0.5 gm VG QHS #1 tube 06/19/17 Fentanyl [Duragesic 12 Mcg/Hr Transdermal Patch] 1 each TD Q3D@1100 #10 patch.td72 06/19/17 Fluconazole [Diflucan 100 mg Tablet] 200 mg PO NOON #10 tablet 06/19/17 Sodium Bicarbonate [Sodium Bicarbonate 650 mg Tablet] 650 mg PO Q12 #60 tablet 06/19/17 Zinc Oxide [Zinc Oxide 20% Ointment 28.35 gm] 1 applic TP BID #1 tube 06/19/17 History of Present Illness Patient complains of: vomiting , difficulty urinating History of Present Illness: JOSH VALERA is an 76 year old female, complaining of trouble urinating for the past couple of weeks. She says it hurts, herrera, stings, and only goes a small amount at a time. She is prone to getting UTIs. Has not seen any blood in her urine. Has not run any fever. She also says that she is not eating well. She gets full very easily. Feeling weak and dizzy. She vomited twice yesterday, none today. No diarrhea. Last bowel movement yesterday. Denies abdominal pains. Denies chest pains. Denies difficulty breathing or shortness of breath. Patient has a history of right breast cancer diagnosed in February. She is on chemotherapy, her most recent dose being May 24. She has not had any other treatments for her breast cancer. Hospital Course Hospital Course: (1) Acute renal failure secondary to dehydration 04/05/17 06/10/17 06/11/17 02:00 12:05 08:15 Creatinine 1.37 H 1.79 H 1.35 H 06/16/17 05:51 Creatinine 0.90 Renal failure resolved with hydration renal function is normal at discharge (2) Hypernatremia 04/05/17 06/10/17 06/11/17 02:00 12:05 08:15 Sodium 150.8 H 148.9 H 145.4 H 06/16/17 05:51 Sodium 140.8 secondary to dehydration resolved Na normal at discharge (3) Metastatic breast cancer chronic pain pelvic area stage 4 metastatic breast ca with diffuse bone mets to cervicothoracic, lumbar spine and pelvis continue pain management patient followed by oncology Duragesic patch was initiated (4) Urinary tract infection Funguria treated with diflucan (5) Vulvovaginitis Continue Premarin vaginal cream as there may be estrogen deprived. Continue clotrimazole/lidocaine gel. Continue low-dose fentanyl patch since she may be having referred pain due to metastatic disease. (6) Adult failure to thrive syndrome protein supplements (7) TIA (transient ischemic attack) head MRI and carotid doppler were normal continue anticoagulation with xarelto ASA was not prescribed because of increased bleeding risk Physical Exam Vital Signs: Temp Pulse Resp BP Pulse Ox 98.5 F 60 16 150/82 H 100 06/19/17 16:38 06/19/17 16:38 06/19/17 16:38 06/19/17 16:38 06/19/17 16:38 General appearance: PRESENT: cooperative, thin Head exam: PRESENT: atraumatic, normocephalic Eye exam: PRESENT: conjunctiva pink, EOMI, PERRLA Ear exam: PRESENT: normal external ear exam Mouth exam: PRESENT: moist Neck exam: PRESENT: full ROM. ABSENT: JVD, lymphadenopathy, tenderness Respiratory exam: PRESENT: clear to auscultation zane Cardiovascular exam: PRESENT: RRR. ABSENT: diastolic murmur, systolic murmur Vascular exam: PRESENT: normal capillary refill GI/Abdominal exam: PRESENT: normal bowel sounds, soft. ABSENT: tenderness Extremities exam: PRESENT: full ROM. ABSENT: pedal edema Musculoskeletal exam: PRESENT: ambulatory Neurological exam: PRESENT: alert, awake, oriented to person, oriented to place , oriented to time, oriented to situation, CN II-XII grossly intact Psychiatric exam: PRESENT: appropriate affect, normal mood Skin exam: PRESENT: intact, normal color Results Laboratory Results: 06/16/17 05:51 06/16/17 05:51 Impressions: Abdomen/Pelvis CT 06/11/17 08:26 IMPRESSION: 1. No evidence of bowel obstruction or other acute finding. 2. Known right breast mass and bone metastasis. Head CT 06/11/17 12:12 IMPRESSION: CHRONIC SINUSITIS. CHRONIC WHITE MATTER CHANGES. OTHERWISE, NORMAL BRAIN CT WITHOUT CONTRAST. EVIDENCE OF ACUTE STROKE: NO. Head MRI 06/11/17 14:52 IMPRESSION: 1. Chronic intracranial changes include atrophy and small vessel disease. No acute CVA. 2. Heterogeneous bone changes in the upper cervical spine and at the skullbase. Presumably related to osseous metastatic disease. Patient has history of abnormal bone and PET scans with breast cancer. EVIDENCE OF ACUTE STROKE: NO. Carotid Doppler Study 06/12/17 00:00 IMPRESSION: NO HEMODYNAMICALLY SIGNIFICANT STENOSIS. Pelvis X-Ray 06/17/17 00:00 IMPRESSION: Multiple tiny lytic metastatic lesions throughout the bony pelvis and proximal femurs. No pathologic fracture Qualifiers - * PATEINT BEING DISCHARGED WITH ANY OF THE FOLLOWING DIAGNOSIS?: No Plan Discharge Plan: discharged home with home Health follow up with Dr Torres in 1 week Time Spent: Greater than 30 Minutes
== END 2017-06-19 17:36 | disposition home health service (06) | DRG 683 ==
LOC: ER 09:55 → EH 15:30 → 3W 06-12 01:55
PROVIDERS: ADMIT Internal Medicine; ATTEND Internal Medicine
DX: N17.9 Acute kidney failure, unspecified (principal); N30.00 Acute cystitis without hematuria; E87.0 Hyperosmolality and hypernatremia; E87.2 Acidosis; G45.9 Transient cerebral ischemic attack, unspecified; C79.51 Secondary malignant neoplasm of bone; E78.00 Pure hypercholesterolemia, unspecified; I10 Essential (primary) hypertension; C50.911 Malignant neoplasm of unspecified site of right female breast; K21.9 Gastro-esophageal reflux disease without esophagitis; N76.0 Acute vaginitis; R62.7 Adult failure to thrive; K59.09 Other constipation; E86.0 Dehydration; R11.2 Nausea with vomiting, unspecified; J32.9 Chronic sinusitis, unspecified; E83.42 Hypomagnesemia; D64.9 Anemia, unspecified; Z86.711 Personal history of pulmonary embolism; Z90.49 Acquired absence of other specified parts of digestive tract; Z88.0 Allergy status to penicillin; Z82.49 Family history of ischemic heart disease and other diseases of the circulatory system; Z80.9 Family history of malignant neoplasm, unspecified; Z83.3 Family history of diabetes mellitus
CPT/HCPCS: 36415; 51701; 70450; 70551; 72190; 74176; 80048; 80053; 81001; 82271; 82962; 83605; 83735; 85025; 87040; 87086; 93306; 93880; 96365; 99285; G8978-GP; G8979-GP; G8987-GO; G8988-GO; J0360; J0696; J1650; J1815; J2405; J2765; J3475; J3480; J3490; J7030; J8499; S0119

== ENCOUNTER → 2017-06-29 | Outpatient (CLI) | payer MEDICARE, OTHER ==
[2017-06-29 19:03] LABS: AMORPHOUS SEDIMENT,URINE TRACE /HPF; APPEARANCE,URINE TURBID; BILIRUBIN,URINE NEGATIVE (NEGATIVE); GLUCOSE, URINE 50 mg/dL (NEGATIVE); KETONES,URINE TRACE mg/dL (NEGATIVE); LEUKOCYTE ESTERASE,URINE LARGE (NEGATIVE); NITRITE,URINE NEGATIVE (NEGATIVE); PROTEIN,URINE >=500 mg/dL (NEGATIVE)
[2017-06-29 19:06] LABS: COLOR,URINE ORANGE
== END ==
LOC: OD 16:53
PROVIDERS: ATTEND Internal Medicine
DX: E11.9 Type 2 diabetes mellitus without complications (principal); E86.0 Dehydration; N39.0 Urinary tract infection, site not specified
CPT/HCPCS: 36415; 81001